=== PATIENT | female | born 1950 | race Caucasian/White ===

== ENCOUNTER → 2018-08-11 11:59 | Outpatient (CLI) | payer MEDICARE, SELFPAY ==
--- NOTE | 2018-08-11 12:41 | EKG12_ITS ---
Test Reason : PRE OP Blood Pressure : / mmHG Vent. Rate : 073 BPM Atrial Rate : 073 BPM P-R Int : 158 ms QRS Dur : 072 ms QT Int : 380 ms P-R-T Axes : 060 023 027 degrees QTc Int : 418 ms Normal sinus rhythm Nonspecific ST abnormality Abnormal ECG Confirmed by JAYLEN GUZMAN, MAN ([id number]), business editor ARJUN ARIAS ([id number]) on 08/12/2018 2:06:47 PM Referred By: Basim Moss Confirmed By:MAN YORK MD
[2018-08-11 12:44] LABS: Hematocrit 44.7 % (37-47); Hemoglobin 14.8 g/dl (12.0-15.0); Mean Corp Hgb Conc 33.1 g/gl (32-36); Mean Corpuscular Hgb 30.8 pg (27.0-32.0); Mean Corpuscular Volume 93.1 fL (81-99); Mean Platelet Vol. 9.9 fl (6.2-12.0); Platelet Count 254 K/mm3 (150-450); RBC Distribution Width CV 12.8 % (11.6-14.6); RBC Distribution Width SD 43.3 fl (35.1-43.9); Scan Indicated on CBC? Y/N NO; White Blood Count 5.8 K/mm3 (4.4-11.0)
[2018-08-11 13:08] LABS: Anion Gap 9 (5-15); BUN 14 mg/dL (7-18); BUN/Creat Ratio 17.7 RATIO (10-20); Calcium,Total 8.8 mg/dL (8.5-10.1); Chloride 106 mmol/L (98-107); Creatinine, Serum 0.79 mg/dL (0.55-1.02); EST Glomerular Filtration Rate 77 mL/min (>60); Est Glom Filt Rate - Afr Amer 93 mL/min (>60); Glucose 93 mg/dL (74-106); Sodium Level 140 mmol/L (136-145)
== END ==
PROVIDERS: Visit Provider Urology
DX: Z01.818 Encounter for other preprocedural examination (principal); I10 Essential (primary) hypertension; E03.9 Hypothyroidism, unspecified
CPT/HCPCS: 36415; 80048; 85027; 93005

== ENCOUNTER → 2018-08-27 09:01 | Outpatient (CLI) | payer MEDICARE, SELFPAY ==
--- NOTE | 2018-08-27 09:06 | RAD_ITS ---
STUDY: VOIDING CYSTOGRAM REASON FOR EXAM: Female, 67 years old. Flank pain . RADIATION DOSAGE (If Supplied By Facility): dap= 9.505 mGycm2 images=17 FLUOROSCOPY TIME (if supplied): (1:12) minutes/seconds TECHNIQUE: Bladder is filled with 150 mL of Cystografin. COMPARISON: None. FINDINGS: There is opacification of the urinary bladder which appears small in size. There is no evidence of contrast leak to suggest a fistula or tear. There is pseudodiverticulosis of the urinary bladder wall suggesting chronic UM by the orthopedic obstruction or neurogenic bladder. Voiding views demonstrate small postvoid residue. The urethra is unremarkable.There is no vesicoureteral reflux. RAD/Voiding Urethrocystography IMPRESSION: There is no evidence of contrast leak to suggest a fistula or tear. Electronically Signed: Quan Gordon MD at 13:55 EDT Tel , Service support ,
== END ==
PROVIDERS: Referring Provider Urology; Visit Provider Urology
DX: S37.10XA Unspecified injury of ureter, initial encounter (principal)
CPT/HCPCS: 51600; 74455

== ENCOUNTER → 2018-12-21 08:18 | Outpatient (CLI) | payer MEDICARE, SELFPAY ==
[2015-03-13 09:43] VITALS: BMI 28.3
[2018-12-21 12:10] LABS: Absolute Lymphocyte Count 1.45 X10^3/ul (0.83-4.51); Absolute Neutrophil Count 2.8 X10^3/uL (2.0-7.7); Basophil# 0.03 X10^3/uL; Basophil% 0.6 % (0-1); Eosinophil# 0.18 X10^3/uL; Eosinophils% 3.7 % (0-5); Hematocrit 45.7 % (37-47); Hemoglobin 14.4 g/dl (12.0-15.0); Lymphocyte # 1.45 X10^3/ul (4.0); Lymphocyte % 29.9 % (19-41); Mean Corp Hgb Conc 31.5 g/gl (32-36); Mean Corpuscular Hgb 29.3 pg (27.0-32.0); Mean Corpuscular Volume 92.9 fL (81-99); Mean Platelet Vol. 10.8 fl (6.2-12.0); Monocyte# 0.36 X10^3/uL; Monocyte% 7.4 % (0-10); Neutrophil # 2.82 X10^3/uL (2.7-7.7); Neutrophil % 58.2 % (47-70); Platelet Count 223 K/mm3 (150-450); RBC Distribution Width CV 13.1 % (11.6-14.6); RBC Distribution Width SD 44.4 fl (35.1-43.9); Red Blood Count 4.92 M/mm3 (4.2-5.4); White Blood Count 4.9 K/mm3 (4.4-11.0)
[2018-12-21 12:12] LABS: POSITIVE COUNT NO; POSITIVE DIFFERENTIAL NO; POSITIVE MORPHOLOGY NO
[2018-12-21 12:20] LABS: ALB/GLOB Ratio 0.9 RATIO (0.9-2.4); AST(SGOT) 19 U/L (15-37); Alanine Aminotransfer ALT/SGPT 24 U/L (13-56); Albumin, Serum 3.7 g/dL (3.2-5.0); Alkaline Phosphatase 81 U/L (45-117); Anion Gap 9 (5-15); BUN 11 mg/dL (7-18); BUN/Creat Ratio 15.5 RATIO (10-20); Calcium,Total 8.9 mg/dL (8.5-10.1); Chloride 107 mmol/L (98-107); Cholesterol 208 mg/dL (200); Creatinine, Serum 0.71 mg/dL (0.55-1.02); EST Glomerular Filtration Rate 87 mL/min (>60); Est Glom Filt Rate - Afr Amer 105 mL/min (>60); Glucose 103 mg/dL (74-106); High Density Lipoprotein 43 mg/dL; Potassium 4.1 mmol/L (3.5-5.1); Protein, Total 7.7 g/dL (6.4-8.2); Sodium Level 142 mmol/L (136-145); Triglycerides 128 mg/dL; Very Low Density Lipoprotein 26 mg/dL (5-40)
== END ==
PROVIDERS: Family Provider Family Medicine; PCP Family Medicine; Visit Provider Family Medicine
DX: I10 Essential (primary) hypertension (principal)
CPT/HCPCS: 36415; 80053; 80061; 85025

== ENCOUNTER → 2019-01-15 07:42 | Outpatient (CLI) | payer MEDICARE, SELFPAY ==
--- NOTE | 2019-01-15 07:47 | US_ITS ---
STUDY: ULTRASOUND BREAST - RIGHT REASON FOR EXAM: Female, 68 years old. Palpable lump in the right breast. TECHNIQUE: Axial and longitudinal images of the RIGHT breast were performed with a high resolution ultrasound transducer. COMPARISON: Comparison is made with prior mammogram done earlier in the day. FINDINGS: RIGHT Breast: The lower half of the right breast was examined by ultrasound. There is evidence of fibroglandular tissue. No solid or cystic mass lesion is seen. US/Breast Limited Unilateral IMPRESSION: No sonographic abnormality is seen. ASSESSMENT CATEGORY: BIRADS Category 1: Negative. A letter regarding these results will be sent to the patient by the facility within 30 days. Electronically Signed: Jeyson Acosta MD at 13:26 EST , Service support ,
--- NOTE | 2019-01-15 07:47 | BI_ITS ---
MAMMOGRAPHY - BILATERAL DIAGNOSTIC REASON FOR EXAM: Female, 68 years old. Tender right breast lump. PERTINENT HISTORY: Non-contributory. TECHNIQUE: Digital bilateral breast charlene (3D mammographic acquisition) in the CC and MLO projections. 2-D mediolateral oblique (MLO) and craniocaudad (CC) views of both breasts were obtained. CAD: Full Field Digital Mammography with Computer Added Detection was performed. COMPARISON: Comparison is made with prior study dated April 11, 2014. FINDINGS: Breast Composition: The breasts are almost entirely fatty. There are no dominant masses or suspicious calcifications. No other significant abnormalities are identified. There has been no significant change since the prior study. BI/DIAG MAMM W/CAD, BILAT IMPRESSION: Stable bilateral diagnostic mammogram. With the patient's history of a right breast lump, correlation with ultrasound is recommended. ASSESSMENT CATEGORY: BIRADS Category 0: Incomplete. Need additional imaging evaluation. A letter regarding these results will be sent to the patient by the facility within 30 days. Approximately 10% of breast cancers are not detected by mammography. A normal mammogram should not delay biopsy of a clinically suspicious abnormality. Electronically Signed: Jeyson Acosta MD at 10:38 EST , Service support ,
== END ==
PROVIDERS: Family Provider Family Medicine; PCP Family Medicine; Referring Provider Family Medicine; Visit Provider Family Medicine
DX: N63.41 Unspecified lump in right breast, subareolar (principal)
CPT/HCPCS: 76642; 77062; 77066; G0279

== ENCOUNTER → 2019-01-20 08:30 | Outpatient (CLI) | payer MEDICARE, SELFPAY ==
[2019-01-19 08:43] VITALS: BMI 30.3
--- NOTE | 2019-01-20 08:30 | US_ITS ---
STUDY: ULTRASOUND BREAST - RIGHT REASON FOR EXAM: Female, 68 years old. Palpable lump in the right breast. TECHNIQUE: Axial and longitudinal images of the RIGHT breast were performed with a high resolution ultrasound transducer. COMPARISON: Comparison is made with prior ultrasound of the right breast dated January 15, 2019 as well as prior mammogram dated January 15, 2019. FINDINGS: RIGHT Breast: The lateral half of the breast was examined by ultrasound. 2 benign-appearing lymph nodes are seen in the axillary region. The larger measures 1.1 cm x 1.6 cm x 0.5 cm. US/Breast Limited Unilateral IMPRESSION: 2 benign-appearing right axillary lymph nodes. ASSESSMENT CATEGORY: BIRADS Category 2: Benign. A letter regarding these results will be sent to the patient by the facility within 30 days. Electronically Signed: Jeyson Acosta, at 9:36 EST , Service support ,
== END ==
PROVIDERS: Family Provider Family Medicine; PCP Family Medicine; Referring Provider Surgery; Visit Provider Surgery
DX: N64.4 Mastodynia (principal)
CPT/HCPCS: 76642

== ENCOUNTER → 2019-04-02 13:09 | Outpatient (CLI) | payer MEDICARE, SELFPAY ==
[2019-01-25 09:23] VITALS: BMI 30.3
[2019-04-02 16:07] LABS: Free T3 3.9 pg/mL (2.18-3.98); T4 Free Direct 0.82 ng/dL (0.76-1.46); Thyroid Stim Hormone (TSH) 0.14 uIU/mL (0.358-3.74)
== END ==
PROVIDERS: Family Provider Family Medicine; PCP Family Medicine; Visit Provider Family Medicine
DX: E03.9 Hypothyroidism, unspecified (principal)
CPT/HCPCS: 36415; 84439; 84443; 84481

== ENCOUNTER → 2019-04-15 | Outpatient (CLI) | payer MEDICARE, SELFPAY ==
[2019-01-25 09:23] VITALS: BMI 30.3
--- NOTE | 2019-04-15 08:45 | BD_ITS ---
STUDY: DUAL ENERGY X-RAY ABSORPTIOMETRY / DXA REASON FOR EXAM: Female, 68 years old. Early menopause. Loss of height. TECHNIQUE: Bone Mineral Density (BMD) measurements of lumbar spine and bilateral hips were obtained. COMPARISON: None. FINDINGS: Lumbar Spine (L1-L4): g/cm2 (1.226) / T-score (0.2) / Z-score (1.9) Findings are suggestive of normal bone density with a low fracture risk. Left Femur Total: g/cm2 (0.973) / T-score (-0.3) / Z-score (1.2) Left Femoral Neck: g/cm2 (0.878) / T-score (-1.2) / Z-score (0.5) Right Femur Total: g/cm2 (0.976) / T-score (-0.3) / Z-score (1.2) Right Femoral Neck: g/cm2 (0.872) / T-score (-1.2) / Z-score (0.5) BD/Dexa Bone Density Study IMPRESSION: The patient is considered osteopenic as outlined below according to World [place] Organization (WHO) criteria with a low fracture risk. Reference Information: The T-score is the number of standard deviations above or below the standard which is normal for young adults at their peak bone mineral density. The World Health Organization (WHO) interprets the T-scores as follows: Above -1 Normal bone density Between -1 and -2.5 Osteopenia Equal to / or below -2.5 Osteoporosis As a practical clinical guideline, osteopenia may be graded as follows: Mild -1 through -1.5 Moderate -1.6 through -2.0 Severe -2.1 through -2.4 The Z-score is the number of standard deviations above or below age-matched controls. A Z-score of less than -1.5 would be considered abnormal. References: 1. NIH Osteoporosis and Related Bone Diseases http://www.osteo.org 2. International Society for Clinical Densitometry http://www.iscd.org 3. National Osteoporosis Foundation http://www.nof.org Electronically Signed: Jeyson Acosta, at 11:25 EDT , Service support ,
== END | disposition home or self-care (01) ==
LOC: OPBD 08:27
PROVIDERS: Family Provider Family Medicine; PCP Family Medicine; Referring Provider Family Medicine; Visit Provider Family Medicine
DX: M81.0 Age-related osteoporosis without current pathological fracture (principal)
CPT/HCPCS: 77080

== ENCOUNTER → 2019-09-17 | Outpatient (CLI) | payer MEDICARE, SELFPAY ==
[2019-01-25 09:23] VITALS: BMI 30.3
--- NOTE | 2019-09-17 12:43 | RAD_ITS ---
STUDY: X-RAY - LUMBAR SPINE REASON FOR EXAM: Female, 69 years old. Increased lower back pain. TECHNIQUE: 5 view(s) of the lumbar spine were obtained. COMPARISON: None FINDINGS: There is a slightly exaggerated lumbar lordosis. There is no substantial scoliosis. For the purposes of labeling there are 5 lumbar type nonrib-bearing vertebral body with a transitional vertebral body labeled S1. There is a normal alignment of the vertebrae. There is multilevel endplate spondylosis of the lumbar vertebrae. There is multilevel vacuum phenomena. There is multi-level degenerative disc disease with multi-level disc space narrowing. There is no demonstrated fracture. There is no demonstrated spondylolysis of the pars interarticulares. The soft tissue structures are unremarkable. RAD/L/S Spine Min 4 Views IMPRESSION: Multilevel spondylosis/degenerative disease with no acute fracture, spondylolisthesis or pars defect. Electronically Signed: Aimee Esquivel MD at 0:56 EDT , Service support ,
--- NOTE | 2019-09-17 12:43 | RAD_ITS ---
STUDY: X-RAY - CERVICAL SPINE REASON FOR EXAM: Female, 69 years old. Increasing neck pain. TECHNIQUE: 6 view(s) of the cervical spine were obtained. COMPARISON: None FINDINGS: There are degenerative changes of the anterior atlantoaxial articulation. Normal odontoid process. There is straightening of the normal cervical lordosis. There is multi-level endplate spondylosis. There is multi-level degenerative disc disease with multilevel disc space narrowing. There is multi-level osseous foraminal stenosis. The soft tissue structures are unremarkable. There is no demonstrated fracture of the cervical spine. RAD/Cerv Spine 4 or 5 Views IMPRESSION: Multilevel spondylosis/degenerative disease with no acute fracture or subluxation. Straightening of the physiological cervical lordosis most likely due to underlying degenerative disease or muscular spasm. Electronically Signed: Aimee Esquivel MD at 0:52 EDT , Service support ,
== END | disposition home or self-care (01) ==
LOC: HPRAD 12:40
PROVIDERS: Family Provider Family Medicine; PCP Family Medicine; Referring Provider Family Medicine; Visit Provider Family Medicine
DX: M54.9 Dorsalgia, unspecified (principal)
CPT/HCPCS: 72050; 72110

== ENCOUNTER → 2019-10-07 | Outpatient (CLI) | payer MEDICARE, SELFPAY ==
[2019-10-07 14:15] VITALS: BMI 30.3
[2019-10-07 17:34] LABS: Thyroid Stim Hormone (TSH) 0.05 uIU/mL (0.358-3.74)
== END | disposition home or self-care (01) ==
LOC: BFHLAB 15:03
PROVIDERS: Family Provider Family Medicine; PCP Family Medicine; Visit Provider Family Medicine
DX: E03.9 Hypothyroidism, unspecified (principal)
CPT/HCPCS: 36415; 84443

== ENCOUNTER 2019-10-15 08:25 | Day surgery (SDC) | payer MEDICARE, SELFPAY ==
[2019-10-07 14:15] VITALS: BMI 30.3
--- NOTE | 2019-10-14 21:36 | PCM.HP.BLA ---
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 She initially saw the Biofuels Research Scientist because of red areas on her face that was diagnosed as rosacea. That is when the lesion on her left mid posterior leg was seen and a shave biopsy was obtained. Today she denies fever. She has minimal discomfort in the biopsy site. She presents today for surgical options for treatment for her recently diagnosed melanoma in situ. PAST MEDICAL HISTORY Bladder leak Breast lump in female Cataracts, bilateral GERD (gastroesophageal reflux disease) History of pneumonia Hormone deficiency IBS (irritable bowel syndrome) Osteoporosis Skin cancer Vision problems COPD (chronic obstructive pulmonary disease) Chronic bronchitis Arthritis High cholesterol Hypoglycemia Hypothyroid Migraines PCOS (polycystic ovarian syndrome) HTN (hypertension) PAST SURGICAL HISTORY LOWER DENTAL IMPLANTS abdominoplasty bunionectomy hysterectomy nasal septoplasty hernia repair kyphoplasty right ovarian cystectomy ALLERGIES No Known Allergies MEDICATIONS esomeprazole magnesium thyroid (pork) acetaminophen ER FAMILY HISTORY Mother - Cancer lung, Arthritis Father - Hypertension, Arthritis Other - Breast cancer, High cholesterol, Ovarian cancer, Thyroid disorder SOCIAL HISTORY Smoking Status: Former smoker alcohol intake: current substance use type: does not use REVIEW OF SYSTEMS General - Denies fever, fatigue, and weight loss. Eyes - Has cataracts. Denies glaucoma. ENT - Denies nasal congestion and sore throat. Has chronic sinus problems. Endocrine - Denies excessive thirst and urination. Has heat and cold intolerance. Has thyroid disease. Skin - Has recently shave biopsy from left mid posterior leg on 09/23/19 that showed melanoma in situ lentigo maligna type. Musculoskeletal - Has joint pain, joint stiffness, and arthritis. Denies weakness of muscles and joints and back pain. Neuro - Denies headaches. Cardiovascular - Denies chest pain, fatigue, and shortness of breath with exertion. Psych - Denies anxiety and depression. Respiratory - Denies chronic cough. Has shortness of breath. Patient is a former smoker. Gastrointestinal - Denies nausea, vomiting, diarrhea, and constipation. Hematologic - Denies abnormal bruising and bleeding. Genitourinary - Denies hematuria. has urinary frequency. Has incontinence. PHYSICAL EXAMINATION General - Alert and Oriented HEENT - PERRL. EOMI. Throat is clear. No suspicious lesions noted. Neck - Supple and nontender. No cervical adenopathy. No suspicious lesions noted. Lungs - Clear to auscultation. Heart - Regular rate and rhythm. Abdomen - Soft and nondistended. Extremities - FROM. No axillary adenopathy. Radial pulses are palpable. No inguinal adenopathy. Dorsalis pedis pulses are palpable. On the left mid posterior leg is a healing scab from recent biopsy that showed melanoma in situ lentigo maligna type. No other suspicious lesions noted. Neuro - CN II-XII grossly intact. Psych - Normal mood and affect. ASSESSMENT 1. 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 2. Former smoker. PLAN This was a shave excision so we need to establish the diagnosis with a completion excision into the subcutaneous tissue to check if there is any deeper focus of melanoma that would change the definitive treatment with regard to the margin required at the time of the wide excision. Also if there is a focus of melanoma in the intermediate range (between 1 and 4 mm thick) would require a sentinel lymph node biopsy before proceeding with a definitive wide excision since the definitive treatment can distort the lymphatic drainage. At the time of the completion excision, tissue will be sent to Pathology for analysis to look for a deeper focus of melanoma. At the time of surgery will leave the wound open and proceed with postop wound care with Silver dressing changes. Once the final pathology is available, can then schedule the definitive wide excision with a 5 mm margin down to the muscular fascia. Reconstruction will be with skin grafting. Since melanoma in situ can travel extensively in the horizontal plane, if the subsequent pathology report has additional melanoma in situ at the margins, then additional excision would be necessary with skin grafting. Discussed with the patient the different levels of melanoma for treatment. If melanoma is less than 1 mm thick, it is a thin melanoma and needs a 1 cm margin of excision. If melanoma is between 1 and 4 mm thick, it is an intermediate melanoma and needs a 2 cm margin of excision. If melanoma is greater than 4 mm thick, it is a thick melanoma and needs a 2-3 cm margin of excision. The initial surgery will be done on an outpatient basis under local anesthesia with IV sedation. For the definitive wide excision with skin grafting, surgery can be done on an outpatient basis under general anesthesia or local anesthesia with IV sedation. Tissue will be sent to Pathology for analysis to look for any additional melanoma at the margins. Patient was informed of the risks and complications of the procedure including alternatives to surgery. These were discussed with the patient personally. Patient voices understanding and wishes to proceed. Some of the risks and complications were included in a form from the [place] [employer]. After treatment has been completed, she will need TBSE every 3-6 months. On a yearly basis, she will need LFT's including LDH and fractionation of Alkaline Phosphatase and a CXR.
[2019-10-15] VITALS (8 sets, daily range): BP systolic 129–151; BP diastolic 74–86; PULSE 65–70; RESP 15–16; TEMP 36.8–36.9; O2SAT 94–98; BMI 31.5
--- NOTE | 2019-10-15 | IMM_PTH ---
PATIENT: HORTENCIA SERRANO LOC: [facility] – [place] U#:[id number] AGE/SX: 69/F ROOM: RE10/15/[address]: Dr. Marcos Llamas MD : 1950 BED: DIS: 10/15/2019 SPEC #: [id number] RECD: 10/18/19 12:54 STATUS: STEPHAN REQ #: [id number] DIANN: 10/15/19 00:[address]: Marcos Llamas DEPT: IMMUNOHISTOCHEMISTRY RECD BY: Millie Lawson ENTERED: 10/18/19 12:55 SP TYPE: IMMUNO OTHR DR: Dr. Little Sullivan MD Tissues: Skin of leg, NOS Procedures: MACRO (add) P53 (add) Vimentin (add) Pankeratin (initial) MELAN-A (add) S-100 (add) PHYSICIAN & INSTITUTION [place] [id number] SPECIMEN INFORMATION: Tissue Source: Melanoma in situ, posterior leg, excision Clinical Info: Melanoma in situ, lentigo maligna type, left mid posterior leg Specimen Number: [id number] CPT code: 29247, 82742 x5 METHODOLOGY: Deparaffinized sections of prefer/formalin-fixed tissue or PAP/DQ stained slides are incubated with monoclonal/polyclonal antibodies/oligonucleotide probes. Localization is made via biotin free immunoperoxidase method. Appropriate controls are performed and reacted as expected. Results on target cell population are indicated in the following table: RESULTS: ANTIBODY / CLONE RESULT AE1-3 (AE1/AE3/PCK26) negative Vimentin (V9) positive Macro (HAM-56) positive Melan A (A103) negative S-100 (4C4.9) negative P53 (DO-7) negative These tests were developed and their performance characteristics determined by [facility]. They may not have been cleared or approved by the U.S. Food and Drug Administration. The FDA has determined that such clearance or approval is not necessary. The above immunohistochemical/dualISH markers are ordered and reviewed by the Pathologist. INTERPRETATION: Melanoma in situ, posterior leg, excision: No evidence of residual melanoma. AM:phoenix 10/19/19
[2019-10-15] MEDS: Lactated Ringers 1,000 ML 100 ML IV (09:03)
--- NOTE | 2019-10-15 09:55 | LES_PTH ---
PATIENT: HORTENCIA SERRANO LOC: [facility] [place] U#:[id number] AGE/SX: 69/F ROOM: RE10/15/[address]: Dr. Marcos Llamas MD : 1950 BED: DIS: 10/15/2019 SPEC #: [id number] RECD: 10/15/19 11:52 STATUS: STEPHAN REMali #: [id number] DIANN: 10/15/19 09:[address]: Marcos Llamas DEPT: SURGICAL PATHOLOGY RECD BY: Tony Feliciano ENTERED: 10/15/19 13:23 SP TYPE: Lesion OTHR DR: Dr. Little Sullivan MD Tissues: Skin of leg, NOS Procedures: Surgery Specimen Level IV HEADER OPERATION: Completion, excision, melanoma in situ, posterior leg PRE-OP DIAGNOSIS: 6 mm melanoma in situ, lentigo maligna type left mid posterior leg TISSUE SUBMITTED: 6 mm melanoma in situ, lentigo maligna type left mid posterior leg, suture at 12 o'clock MICROSCOPIC DIAGNOSIS Skin lesion, left mid posterior leg, biopsy: Cicatrix. Mild melanocytic hyperplasia. No evidence of residual melanoma. AM:phoenix 10/18/19 COMMENT Immunohistochemistry ([id number]) supports the above diagnosis. MICROSCOPIC DESCRIPTION Slides are reviewed. GROSS DESCRIPTION Received in fixative is one container labeled with the patient's name and designated melanoma in situ left leg, suture at 12 o'clock. The specimen consists of a round piece of rob-white skin measuring 1.5 x 1 cm and up to 0.5 cm in thickness. The skin surface shows a focal area of ulceration consistent with previous biopsy site measuring 0.2 cm in diameter. The specimen is inked as follows: 12 to 3 o'clock - black, 3 to 6 o'clock - blue, 6 to 9 o'clock - green, 9 to 12 o'clock - yellow. The specimen is serially sectioned and submitted entirely in one cassette. / SJ:phoenix 10/15/19 TC:3 CPT: 58458
[2019-10-15] MEDS: Cefazolin 2 GM in 0.9% Normal Saline 100 ML IV (10:23)
--- NOTE | 2019-10-15 10:55 | PCM.OPRPT ---
Report of Operation Date of Procedure: 10/15/19 Pre-Operative Diagnosis: 1. 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 2. Former smoker. Post-Operative Diagnosis: Same. 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 She initially saw the Housing Manager because of red areas on her face that was diagnosed as rosacea. That is when the lesion on her left mid posterior leg was seen and a shave biopsy was obtained. Today she denies fever. She has minimal discomfort in the biopsy site. She presents today for surgical options for treatment for her recently diagnosed melanoma in situ. Patient was informed of the risks and complications of the procedure including alternatives to surgery. These were discussed with the patient personally. Patient voices understanding and wishes to proceed. Some of the risks and complications were included in a form from the [place] [employer]. Size of melanoma in situ defect left mid posterior leg - 1.2 x 1.2 x 0.6 cm. visual training aide: None Type of Anesthesia:: Local MAC - xylocaine with epinephrine and IV sedation. Specimen's removed: Melanoma in situ, lentigo maligna type, left mid posterior leg to Pathology. Drains: None. Estimated Blood Loss (mL): 5 ml. Description of Procedure: Patient was taken to OR in supine position and was given IV sedation. She was placed in the prone position. The left posterior leg was prepped and draped in the usual fashion. SCD's were placed for DVT prophylaxis. Perioperative antibiotics were given intravenously. The lesion left mid posterior leg was infiltrated with xylocaine and epinephrine. After waiting 5 minutes for the anesthetic to take effect, I proceeded with a completion excision of this melanoma in situ with a couple mm margin in all directions into the subcutaneous tissue. A suture was marked at the 12 oclock position for pathology orientation. The lesion was sent to Pathology for analysis to rule out any deeper focus of melanoma. It was a 12 mm excision. The size of the defect after the excision was 1.2 x 1.2 x 0.6 cm. Hemostasis was obtained with electrocautery. I dressed the wound with Aquacel Silver which was secured with a 4-0 Nylon tie over stent suture dressing. Dry gauze was applied over the Silver dressing followed by a compression hali wrap. Patient tolerated the procedure well and was sent to PACU in satisfactory condition. Patient will be sent home on antibiotics and pain medication. She will keep her left leg elevated when sitting. Patient will followup in a week for a wound check and to instruct the patient on the Silver dressing changes. When the pathology report is available, will then schedule the next stage which is wide excision of the melanoma with a 5 mm margin down to the muscular fascia with skin grafting. Grafts/Implants Used: None. - Complications None. - Admit VTE Documentation VTE Present on Admission: No VTE Mechan Device Prophylaxis: SCD's VTE Pharm Prophylaxis ordered?: No Code Visit Surgery Charges CPT - 31476 ICD-10 - D03.72, Z87.891
--- NOTE | 2019-10-15 11:04 | DCINST_ITS ---
You will use the following diet at home:: No restrictions, Other - encourage nutritional supplementation with protein to help the healing process. Discharge Activity: May Shower - wear plastic bag over left leg when showering., - - may ambulate. minimize standing. elevate left leg when sitting. May shower in (days): 1 - wear plastic bag over left leg when showering. May resume sexual activity in: No Restrictions Weight Bearing Status: Weight bearing as tolerated Keep extremity elevated above heart level: Left Leg Call your doctor if your incision/area has: Continuous Slow Oozing, Sudden Increased Bleeding, Increased Pain/ Swelling, Increased Redness, Foul Smelling Discharge, Swelling at the incision site Call your doctor if you observe: Fever of 101 or Higher, Coldness, Increased Pain, Shortness of breath, Chest pain, Calf discomfort, Uncontrolled pain Suture Line Care: - - Aquacel Silver dressing changes daily. Will remove operative dressing and do first silver dressing change in office. Change Dressing in (Days):: 3 - will change dressing in office. Cleanse incision/area with: - - wear plastic bag over left leg when showering. Allergies/Adverse Reactions: Allergies No Known Allergies Allergy (Verified 10/15/19 08:45) Medications to take at Discharge esomeprazole magnesium 40 mg capsule,delayed release 40 mg PO DAILY cap 01/19/19 thyroid (pork) 120 mg tablet 120 mg PO DAILY 01/19/19 acetaminophen ER 650 mg tablet,extended release 650 mg PO PRN PRN tab 09/30/19 Estradiol [Estrace] 0.5 mg PO DAILY 10/14/19 Fluorometholone [Fml] 1 drp EACH EYE BID 10/14/19 Ketoconazole [Nizoral] 120 ml TP MOWEFR 10/14/19 Metronidazole 45 gm TP DAILY 10/14/19 Minocycline [Minocin] 100 mg PO DAILY 10/14/19 Multivit with Calcium,Iron,Min [Multiple Vitamins For Women] 1 ea PO DAILY 10/14/19 Cefadroxil [Duricef] 500 mg PO BID #10 cap 10/15/19 Lactobacillus Acidophilus/Fos [Acidophilus Probiotic Tablet] 1 ea PO BID #10 tab 10/15/19 Oxycodone HCl/Acetaminophen [Percocet 5/325] 1 tablet PO 4X/DAY PRN PRN 5 Days #20 tablet 10/15/19 The following prescriptions were given: Lactobacillus Acidophilus/Fos [Acidophilus Probiotic Tablet] 1 ea PO BID #10 tab Transmission Status: Pending to [facility] Cefadroxil [Duricef] 500 mg PO BID #10 cap Transmission Status: Pending to [facility] Oxycodone HCl/Acetaminophen [Percocet 5/325] 1 tablet PO 4X/DAY PRN PRN 5 Days #20 tablet PRN Reason: Pain Score 6-10/10 Transmission Status: Sent to [facility] Primary Care Physician: Little Sullivan MD [Primary Care Provider] - Test Results: Test results from this visit will be discussed in further detail at your follow- up appointment, if applicable. Please Follow Up With: Marcos Llamas MD When: friday10/18/19. call [phone] for appt. Proposed Discharge Date: 10/15/19
== END 2019-10-15 12:09 | disposition home or self-care (01) ==
LOC: SDC 08:26 → AC 08:28
PROVIDERS: Family Provider Family Medicine; PCP Family Medicine; Referring Provider Surgery; Visit Provider Surgery
PROC: (CPT 11402; principal; 2019-10-15 09:45)
DX: L90.5 Scar conditions and fibrosis of skin (principal); J44.9 Chronic obstructive pulmonary disease, unspecified; I10 Essential (primary) hypertension; E03.9 Hypothyroidism, unspecified; E78.00 Pure hypercholesterolemia, unspecified; K58.9 Irritable bowel syndrome, unspecified; E28.2 Polycystic ovarian syndrome; M19.90 Unspecified osteoarthritis, unspecified site; K21.9 Gastro-esophageal reflux disease without esophagitis; M81.0 Age-related osteoporosis without current pathological fracture; Z78.0 Asymptomatic menopausal state; Z85.828 Personal history of other malignant neoplasm of skin; Z87.01 Personal history of pneumonia (recurrent); Z87.891 Personal history of nicotine dependence; Z90.710 Acquired absence of both cervix and uterus
CPT/HCPCS: 11402; 88305; 88341; 88342; J7120

== ENCOUNTER 2019-10-27 12:27 | Day surgery (SDC) | payer MEDICARE, SELFPAY ==
[2019-10-20 11:31] VITALS: BMI 31.5
[2019-10-25 15:18] VITALS: BMI 31.5
[2019-10-27] VITALS (8 sets, daily range): BP systolic 148–165; BP diastolic 76–135; PULSE 55–84; RESP 15–18; TEMP 36.3–37; O2SAT 95–100; BMI 31.2
--- NOTE | 2019-10-27 11:34 | HP.PCM_ITS ---
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 She initi ally saw the Sales And Service Engineer because of red areas on her face that was diagnosed as rosacea. That is when the lesion on her left mid posterior leg was seen and a shave biopsy was obtained. Today she denies fever. She has minimal discomfort in the biopsy site. She presents today for surgical options for treatment for her recently diagnosed melanoma in situ. PAST MEDICAL HISTORY Bladder leak Breast lump in female Cataracts, bilateral GERD (gastroesophageal reflux disease) History of pneumonia Hormone deficiency IBS (irritable bowel syndrome) Osteoporosis Skin cancer Vision problems COPD (chronic obstructive pulmonary disease) Chronic bronchitis Arthritis High cholesterol Hypoglycemia Hypothyroid Migraines PCOS (polycystic ovarian syndrome) HTN (hypertension) PAST SURGICAL HISTORY LOWER DENTAL IMPLANTS abdominoplasty bunionectomy hysterectomy nasal septoplasty hernia repair kyphoplasty right ovarian cystectomy ALLERGIES No Known Allergies MEDICATIONS esomeprazole magnesium thyroid (pork) acetaminophen ER FAMILY HISTORY Mother - Cancer lung, Arthritis Father - Hypertension, Arthritis Other - Breast cancer, High cholesterol, Ovarian cancer, Thyroid disorder SOCIAL HISTORY Smoking Status: Former smoker alcohol intake: current substance use type: does not use REVIEW OF SYSTEMS General - Denies fever, fatigue, and weight loss. Eyes - Has cataracts. Denies glaucoma. ENT - Denies nasal congestion and sore throat. Has chronic sinus problems. Endocrine - Denies excessive thirst and urination. Has heat and cold intolerance. Has thyroid disease. Skin - Has recently shave biopsy from left mid posterior leg on 09/23/19 that showed melanoma in situ lentigo maligna type. Musculoskeletal - Has joint pain, joint stiffness, and arthritis. Denies weakness of muscles and joints and back pain. Neuro - Denies headaches. Cardiovascular - Denies chest pain, fatigue, and shortness of breath with exertion. Psych - Denies anxiety and depression. Respiratory - Denies chronic cough. Has shortness of breath. Patient is a former smoker. Gastrointestinal - Denies nausea, vomiting, diarrhea, and constipation. Hematologic - Denies abnormal bruising and bleeding. Genitourinary - Denies hematuria. has urinary frequency. Has incontinence. PHYSICAL EXAMINATION General - Alert and Oriented HEENT - PERRL. EOMI. Throat is clear. No suspicious lesions noted. Neck - Supple and nontender. No cervical adenopathy. No suspicious lesions noted. Lungs - Clear to auscultation. Heart - Regular rate and rhythm. Abdomen - Soft and nondistended. Extremities - FROM. No axillary adenopathy. Radial pulses are palpable. No inguinal adenopathy. Dorsalis pedis pulses are palpable. On the left mid posterior leg is a healing scab from recent biopsy that showed melanoma in situ lentigo maligna type. No other suspicious lesions noted. Neuro - CN II-XII grossly intact. Psych - Normal mood and affect. ASSESSMENT 1. 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 2. Former smoker. PLAN This was a shave excision so we need to establish the diagnosis with a completion excision into the subcutaneous tissue to check if there is any deeper focus of melanoma that would change the definitive treatment with regard to the margin required at the time of the wide excision. Also if there is a focus of melanoma in the intermediate range (between 1 and 4 mm thick) would require a sentinel lymph node biopsy before proceeding with a definitive wide excision since the definitive treatment can distort the lymphatic drainage. At the time of the completion excision, tissue will be sent to Pathology for analysis to look for a deeper focus of melanoma. At the time of surgery will leave the wound open and proceed with postop wound care with Silver dressing changes. Once the final pathology is available, can then schedule the definitive wide excision with a 5 mm margin down to the muscular fascia. Reconstruction will be with skin grafting. Since melanoma in situ can travel extensively in the horizontal plane, if the subsequent pathology report has additional melanoma in situ at the margins, then additional excision would be necessary with skin grafting. Discussed with the patient the different levels of melanoma for treatment. If melanoma is less than 1 mm thick, it is a thin melanoma and needs a 1 cm margin of excision. If melanoma is between 1 and 4 mm thick, it is an intermediate melanoma and needs a 2 cm margin of excision. If melanoma is greater than 4 mm thick, it is a thick melanoma and needs a 2-3 cm margin of excision. The initial surgery will be done on an outpatient basis under local anesthesia with IV sedation. For the definitive wide excision with skin grafting, surgery can be done on an outpatient basis under general anesthesia or local anesthesia with IV sedation. Tissue will be sent to Pathology for analysis to look for any additional melanoma at the margins. Patient was informed of the risks and complications of the procedure including alternatives to surgery. These were discussed with the patient personally. Patient voices understanding and wishes to proceed. Some of the risks and complications were included in a form from the [employer]. After treatment has been completed, she will need TBSE every 3-6 months. On a yearly basis, she will need LFT's including LDH and fractionation of Alkaline Phosphatase and a CXR.
[2019-10-27] MEDS: Lactated Ringers 1,000 ML 100 ML IV (13:07)
[2019-10-27] MEDS: Cefazolin 2 GM in 0.9% Normal Saline 100 ML IV (14:15)
--- NOTE | 2019-10-27 14:15 | LES_PTH ---
PATIENT: HORTENCIA SERRANO LOC: [facility] [place] U#:[id number] AGE/SX: 69/F ROOM: RE10/27/[address]: Dr. Marcos Llamas MD : [id number] BED: DIS: 10/27/2019 SPEC #: [id number] RECD: 10/27/19 16:13 STATUS: STEPHAN REMali #: [id number] DIANN: 10/27/19 14:[address]: Marcos Llamas DEPT: SURGICAL PATHOLOGY RECD BY: Triston Mcwilliams ENTERED: 10/28/19 10:36 SP TYPE: Lesion OTHR DR: Dr. 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 Negative for residual melanoma. See comment. MARNIE:phoenix 10/29/19 COMMENT Please make reference to previous specimen ([id number]) skin lesion, left mid posterior leg, biopsy with diagnosis of cicatrix, mild melanocytic hyperplasia and no evidence of residual melanoma. MICROSCOPIC DESCRIPTION Slides are reviewed. GROSS DESCRIPTION Received in fixative is one container labeled with the patient's name and designated left mid posterior leg. The specimen consists of a discoid fragment of excised skin measuring 2.6 in diameter and excised to a depth of 1 cm. The central portion contains a circular defect measuring 1.5 cm in diameter and 0.5 cm in depth. A suture is present along one edge and has been designated the 12 o'clock position. The specimen has been differentially inked as follows: 12 o'clock - red, 3 o'clock - blue, 6 o'clock - green and 9 o'clock - orange. The entire deep surface is inked in black ink. The specimen is radially sectioned and totally submitted in four cassettes. / AM:phoenix 10/28/19 TC:5 CPT: 90502
[2019-10-27] MEDS: Mupirocin Ointment 22gm Tube 1 APPLIC (15:25)
--- NOTE | 2019-10-27 15:37 | PCM.OPRPT ---
Report of Operation Date of Procedure: 10/27/19 Pre-Operative Diagnosis: 1. 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 2. 1.2 cm melanoma in situ wound left mid posterior leg. 3. Former smoker. Post-Operative Diagnosis: Same. Surgery/Procedure Performed:: Wide excision 1.2 cm melanoma in situ wound left mid posterior leg with STSG reconstruction from right posterior flank (9 cm2) and placement of NEHEMIAS NPWT. 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 We have been doing wound care with Silver dressing changes three times per week. Healing of the wound has been uneventful. Final Pathology showed mild melanocytic hyperplasia and no evidence of residual melanoma. She presents today for definitive wide excision of her melanoma in situ lentigo maligna type wound left mid posterior leg with a 5 mm margin in all directions down to the muscular fascia with skin graft or skin flap reconstruction. Surgery will be done under general anesthesia on an outpatient basis. Patient was informed of the risks and complications of the procedure including alternatives to surgery. These were discussed with the patient personally. Patient voices understanding and wishes to proceed. Some of the risks and complications were included in a form from the [employer]. Size of skin graft left mid posterior leg - 3 x 3 cm. pesticide use medical coordinator: Dani Cortez. Type of Anesthesia:: General Specimen's removed: Melanoma in situ wound left mid posterior leg to Pathology. Drains: None. Estimated Blood Loss (mL): 25 ml. Description of Procedure: Patient was taken to OR in supine position and was placed under general anesthesia. She was then placed in the prone position. The left mid posterior leg and right posterior flank areas were prepped and draped in the usual fashion. SCD's were placed for DVT prophylaxis. Perioperative antibiotics were given intravenously. Using xylocaine with epinephrine, the melanoma in situ wound left mid posterior leg was infiltrated. After waiting 5 minutes for the anesthetic to take effect, I proceeded with a wide excision of the melanoma in situ, lentigo maligna type, with a 5 mm margin in all directions down to the muscular fascia. A suture was marked at the 12 oclock position for pathology orientation. The lesion was sent to pathology for analysis to rule out melanoma at the margins. Hemostasis was obtained with electrocautery. The size of the wound to be skin grafted was 3 x 3 cm or 9 cm2. I then infiltrated the right posterior flank area with xylocaine with epinephrine. An elliptical incision was made into the subcutaneous tissue. The subcutaneous tissue was removed from the undersurface of the dermis along with some deeper dermis thus fashioning a thick split thickness skin graft. The skin graft was placed on stretch and meshed with a 15 blade. The skin graft was placed in saline. I excised some additional subcutaneous tissue in the donor area right posterior flank to aid in wound closure. Hemostasis was obtained with electrocautery. The donor wound was closed in multiple layers with 2-0 Vicryl figure of eight interrupted sutures for the Mireya's fascia layer. The deep dermis and subcutaneous tissue was approximated with 3-0 Monocryl interrupted sutures. The skin was approximated with 3-0 V lock unidirectional barbed running subcuticular suture. This was followed by Histoacryl skin tissue adhesive. Dry Kerlix gauze was applied. The thick split thickness skin graft was applied to the melanoma wound left mid posterior leg and secured to the skin edges with 3-0 Chromic interrupted sutures. 3-0 Chromic sutures were placed for central quilting stabilization. Antibiotic ointment was applied to the skin graft followed by Mepitel nonadherent dressing. I then applied the NEHEMIAS NPWT device. Good suction was noted. The motorized device was functioning. A compression CHANTAL wrap was then applied. Patient tolerated the procedure well and was sent to PACU in satisfactory condition. Patient will be sent home on antibiotics and pain medication. Patient will followup in a week for removal of the skin graft dressing and evaluation of the skin graft and for a donor incision check and for discussion of the pathology report. She will keep her left leg elevated when sitting. Grafts/Implants Used: None. - Complications None. - Admit VTE Documentation VTE Present on Admission: No VTE Mechan Device Prophylaxis: SCD's VTE Pharm Prophylaxis ordered?: No Code Visit Surgery Charges CPT - 38981-30 ICD-10 - D03.72, S81.802A, Z87.891 44842 D03.72, S81.802A, Z87.891
--- NOTE | 2019-10-27 15:52 | DCINST_ITS ---
You will use the following diet at home:: No restrictions Discharge Activity: May Shower - in two days. Place plastic bag over left leg when showering., - - elevate left leg when sitting. minimize standing. May shower in (days): 2 - wear plastic bag over left leg when showering. May resume sexual activity in: 10-14 days Weight Bearing Status: Weight bearing as tolerated Keep extremity elevated above heart level: Left Leg Call your doctor if your incision/area has: Continuous Slow Oozing, Sudden Increased Bleeding, Increased Pain/ Swelling, Increased Redness, Foul Smelling Discharge, Swelling at the incision site, - - if the NEHEMIAS device stops blinking green. Call your doctor if you observe: Fever of 101 or Higher, Coldness, Increased Pain, Shortness of breath, Chest pain, Calf discomfort, Uncontrolled pain Suture Line Care: - - dry dressing to right posterior flank every other day after operative dressing removed in two days. Remove Dressing in (days):: 7 - will remove the NEHEMIAS unit left leg in the office. Cleanse incision/area with: - - wear plastic bag over left leg when showering. Allergies/Adverse Reactions: Allergies No Known Allergies Allergy (Verified 10/27/19 12:46) Medications to take at Discharge esomeprazole magnesium 40 mg capsule,delayed release 40 mg PO DAILY cap 01/19/19 thyroid (pork) 120 mg tablet 90 mg PO DAILY 01/19/19 acetaminophen ER 650 mg tablet,extended release 650 mg PO PRN PRN tab 09/30/19 Estradiol [Estrace] 0.5 mg PO DAILY 10/14/19 Fluorometholone [Fml] 1 drp EACH EYE BID 10/14/19 Ketoconazole [Nizoral] 120 ml TP MOWEFR 10/14/19 Metronidazole 45 gm TP DAILY 10/14/19 Multivit with Calcium,Iron,Min [Multiple Vitamins For Women] 1 ea PO DAILY 10/14/19 Cefadroxil [Duricef] 500 mg PO BID #14 cap 10/27/19 Lactobacillus Acidophilus/Fos [Acidophilus Probiotic Tablet] 1 ea PO BID #20 tab 10/27/19 Oxycodone HCl/Acetaminophen [Percocet 5/325] 1 tab PO Q4H PRN PRN 5 Days #30 tab 10/27/19 The following prescriptions were given: Lactobacillus Acidophilus/Fos [Acidophilus Probiotic Tablet] 1 ea PO BID #20 tab Transmission Status: Pending to [id number] Cefadroxil [Duricef] 500 mg PO BID #14 cap Transmission Status: Pending to [facility] Oxycodone HCl/Acetaminophen [Percocet 5/325] 1 tab PO Q4H PRN PRN 5 Days #30 tab PRN Reason: Pain Score 4-5/10 Transmission Status: Sent to [id number] Primary Care Physician: Little Sullivan MD [Primary Care Provider] - Test Results: Test results from this visit will be discussed in further detail at your follow- up appointment, if applicable. Please Follow Up With: Marcos Llamas MD When: one week. call [phone] for appt. Proposed Discharge Date: 10/27/19
[2019-10-27] MEDS: Acetaminophen 325 MG Tablet PO (18:04)
[2019-10-27] MEDS: oxyCODONE 5 MG Tablet PO (18:04)
== END 2019-10-27 18:46 | disposition home or self-care (01) ==
LOC: SDC 12:28 → AC 12:45
PROVIDERS: Family Provider Family Medicine; PCP Family Medicine; Referring Provider Surgery; Visit Provider Surgery
PROC: (CPT 11603; principal; 2019-10-27 14:00)
DX: D03.72 Melanoma in situ of left lower limb, including hip (principal); S81.802A Unspecified open wound, left lower leg, initial encounter; Z87.891 Personal history of nicotine dependence; L71.9 Rosacea, unspecified; H26.9 Unspecified cataract; K21.9 Gastro-esophageal reflux disease without esophagitis; K58.9 Irritable bowel syndrome, unspecified; M81.0 Age-related osteoporosis without current pathological fracture; J44.9 Chronic obstructive pulmonary disease, unspecified; M19.90 Unspecified osteoarthritis, unspecified site; G43.909 Migraine, unspecified, not intractable, without status migrainosus; E28.2 Polycystic ovarian syndrome; I10 Essential (primary) hypertension; E03.9 Hypothyroidism, unspecified; Z78.0 Asymptomatic menopausal state; Z87.01 Personal history of pneumonia (recurrent); Z85.828 Personal history of other malignant neoplasm of skin; Z79.899 Other long term (current) drug therapy
CPT/HCPCS: 11603; 15100; 88305; J7120; J2405

== ENCOUNTER → 2020-01-10 | Outpatient (CLI) | payer MEDICARE, SELFPAY ==
[2019-10-07 14:15] VITALS: BMI 30.3
[2019-12-23 15:24] VITALS: BMI 31.2
== END | disposition home or self-care (01) ==
LOC: LAB.FUTURE 10:17 → BFHLAB 10:17
PROVIDERS: Family Provider Family Medicine; PCP Family Medicine; Visit Provider Family Medicine
DX: E03.9 Hypothyroidism, unspecified (principal)
CPT/HCPCS: 36415; 84443

== ENCOUNTER → 2020-01-28 09:58 | Outpatient (CLI) | payer MEDICARE, SELFPAY ==
[2019-12-23 15:24] VITALS: BMI 31.2
[2020-01-28 12:29] LABS: ALB/GLOB Ratio 1.1 RATIO (0.9-2.4); AST(SGOT) 20 U/L (15-37); Alanine Aminotransfer ALT/SGPT 25 U/L (13-56); Alkaline Phosphatase 87 U/L (45-117); Anion Gap 5 (5-15); BUN 11 mg/dL (7-18); BUN/Creat Ratio 14.2 RATIO (10-20); Bilirubin, Direct 0.12 mg/dL (0.00-0.30); Calcium,Total 8.7 mg/dL (8.5-10.1); Chloride 105 mmol/L (98-107); Cholesterol 251 mg/dL (200); Creatinine, Serum 0.77 mg/dL (0.55-1.02); EST Glomerular Filtration Rate 78 mL/min (>60); Est Glom Filt Rate - Afr Amer 95 mL/min (>60); Globulin 3.8 g/dL (2.2-4.2); Glucose 95 mg/dL (74-106); High Density Lipoprotein 51 mg/dL; LDH 205 U/L (84-246); Potassium 3.8 mmol/L (3.5-5.1); Protein, Total 7.8 g/dL (6.4-8.2); Sodium Level 138 mmol/L (136-145); Triglycerides 158 mg/dL; Very Low Density Lipoprotein 32 mg/dL (5-40)
[2020-01-28 12:30] LABS: Vitamin D,25 Hydroxy 17.3 ng/mL
[2020-01-28 12:39] LABS: Absolute Lymphocyte Count 1.39 X10^3/uL (0.83-4.51); Absolute Neutrophil Count 2.5 X10^3/uL (2.0-7.7); Basophil# 0.08 X10^3/uL; Basophil% 1.8 % (0-1); Eosinophil# 0.15 X10^3/uL; Eosinophils% 3.4 % (0-5); Hematocrit 43.6 % (37-47); Hemoglobin 13.8 g/dL (12.0-15.0); Lymphocyte # 1.39 X10^3/ul (4.0); Lymphocyte % 31.7 % (19-41); Mean Corp Hgb Conc 31.7 g/dL (32-36); Mean Corpuscular Hgb 29.3 pg (27.0-32.0); Mean Corpuscular Volume 92.6 fL (81-99); Monocyte# 0.29 X10^3/uL; Monocyte% 6.6 % (0-10); NRBC Flagged by Analyzer 0 % (0-5); Neutrophil # 2.46 X10^3/uL (2.7-7.7); Neutrophil % 56.3 % (47-70); Platelet Count 226 K/mm3 (150-450); RBC Distribution Width CV 13.2 % (11.6-14.6); RBC Distribution Width SD 45.1 fl (35.1-43.9); Red Blood Count 4.71 M/mm3 (4.2-5.4); White Blood Count 4.4 K/mm3 (4.4-11.0)
[2020-01-31 14:07] LABS: Alkaline Phosphatase, Serum 83 IU/L (39-117); Bone Fraction 47 % (14-68); Liver Fraction 53 % (18-85)
[2020-01-31 19:12] LABS: Intestinal Fraction 0 % (0-18)
== END ==
PROVIDERS: Nurse Practitioner Family; PCP Family Medicine; Visit Provider Family Medicine
DX: Z00.00 Encounter for general adult medical examination without abnormal findings (principal); E03.9 Hypothyroidism, unspecified; M85.80 Other specified disorders of bone density and structure, unspecified site; D03.72 Melanoma in situ of left lower limb, including hip
CPT/HCPCS: 80053; 80061; 82248; 82306; 83615; 84075; 84080; 85025

== ENCOUNTER → 2020-01-28 | Outpatient (CLI) | payer MEDICARE, SELFPAY ==
[2019-12-23 15:24] VITALS: BMI 31.2
--- NOTE | 2020-01-28 11:10 | RAD_ITS ---
HISTORY: TWISTED ANKLE NOW HAVING PAIN IN KNEE MEDIAL./ANTERIOR EXAM:Right Knee COMPARISON: None FINDINGS: # of images incl. paperwork: 4 A benign enchondroma is present within the distal femur. The joint spaces are narrowed in the patellofemoral portion of the knee and within the medial weightbearing compartment. Osteophytes are present on the dorsal aspect of the patella as well as on the medial aspect of the tibial plateau and the medial femoral condyle. No fracture or subluxation. The patellofemoral joint is narrowed and mildly sclerotic. A tiny joint effusion is suspected. RAD/Knee 4 or More Views IMPRESSION: Osteoarthritis of the right knee greatest within the medial weightbearing compartment of the knee. Benign enchondroma in the distal femur. at 0606 Reported and signed by: Brian Sanabria MD Electronically Signed: Brian Sanabria MD at 6:05 EST Tel , Service support ,
== END | disposition home or self-care (01) ==
LOC: HPRAD 11:06
PROVIDERS: PCP Family Medicine; Referring Provider Family Medicine; Visit Provider Family Medicine
DX: Z00.00 Encounter for general adult medical examination without abnormal findings (principal); E03.9 Hypothyroidism, unspecified; M85.80 Other specified disorders of bone density and structure, unspecified site; D03.72 Melanoma in situ of left lower limb, including hip; M25.561 Pain in right knee
CPT/HCPCS: 73564; 80053; 80061; 82248; 82306; 83615; 84075; 84080; 85025

== ENCOUNTER → 2020-02-02 | Outpatient (CLI) | payer MEDICARE, SELFPAY ==
[2019-12-23 15:24] VITALS: BMI 31.2
--- NOTE | 2020-02-02 14:00 | RAD_ITS ---
STUDY: X-RAY - LUMBAR SPINE REASON FOR EXAM: Female, 69 years old. Back pain TECHNIQUE: 2 view(s) of the lumbar spine were obtained. COMPARISON: None FINDINGS: Normal lumbar lordosis. There is a minimal scoliosis. There is a normal alignment of the vertebrae. Mild degenerative changes of the vertebral bodies with mild spurring at the endplates. Slightly narrowed disc space heights. The soft tissue structures are unremarkable. RAD/Lumbar Spine 2 or 3 Views IMPRESSION: Degenerative changes and minimal scoliosis of the lumbar spine. Electronically Signed: Bhavesh Freedman DO at 23:59 EDT Tel [phone], Service support ,
--- NOTE | 2020-02-02 14:14 | RAD_ITS ---
STUDY: X-RAY - CERVICAL SPINE REASON FOR EXAM: Female, 69 years old. Neck pain TECHNIQUE: 3 view(s) of the cervical spine were obtained. COMPARISON: None FINDINGS: Normal anterior atlantoaxial articulation. Normal odontoid process. Normal cervical lordosis. Degenerative changes of the vertebral bodies with spurring at the endplates. Slightly narrowed disc space heights. The soft tissue structures are unremarkable. RAD/Cerv Spine 2 or 3 Views IMPRESSION: Degenerative changes of the visualized cervical spine. Electronically Signed: Bhavesh Freedman DO at 23:52 EDT Tel [phone], Service support ,
== END | disposition home or self-care (01) ==
LOC: RAD 13:55
PROVIDERS: PCP Family Medicine; Referring Provider Anesthesiology Pain Medicine; Visit Provider Anesthesiology Pain Medicine
DX: M54.2 Cervicalgia (principal); M54.5 Low back pain
CPT/HCPCS: 72040; 72100

== ENCOUNTER → 2020-08-04 | Outpatient (CLI) | payer MEDICARE, SELFPAY ==
[2020-05-10 09:16] VITALS: BMI 31.2
[2020-08-04 15:35] LABS: Anion Gap 4 (5-15); BUN 15 mg/dL (7-18); BUN/Creat Ratio 19.7 RATIO (10-20); Chloride 106 mmol/L (98-107); Creatinine, Serum 0.76 mg/dL (0.55-1.02); EST Glomerular Filtration Rate 80 mL/min (>60); Est Glom Filt Rate - Afr Amer 97 mL/min (>60); Glucose 91 mg/dL (74-106); Potassium 4.1 mmol/L (3.5-5.1); Sodium Level 140 mmol/L (136-145); Thyroid Stim Hormone (TSH) 4.97 uIU/mL (0.358-3.74)
[2020-08-04 15:57] LABS: BNP,B-Type NATRIURETIC PEPTIDE 35.6 pg/mL (0-100)
== END | disposition home or self-care (01) ==
LOC: BFHLAB 13:04
PROVIDERS: PCP Family Medicine; Visit Provider Family Medicine
DX: E03.9 Hypothyroidism, unspecified (principal); R60.0 Localized edema
CPT/HCPCS: 36415; 80048; 83880; 84443

== ENCOUNTER → 2020-10-26 09:48 | Outpatient (CLI) | payer MEDICARE, SELFPAY ==
[2020-05-10 09:16] VITALS: BMI 31.2
[2020-10-26 13:02] LABS: Anion Gap 4 (5-15); BUN 14 mg/dL (7-18); BUN/Creat Ratio 17.5 RATIO (10-20); Calcium,Total 8.9 mg/dL (8.5-10.1); Chloride 107 mmol/L (98-107); Cholesterol 247 mg/dL (200); EST Glomerular Filtration Rate 75 mL/min (>60); Est Glom Filt Rate - Afr Amer 91 mL/min (>60); Glucose 98 mg/dL (74-106); High Density Lipoprotein 47 mg/dL; Sodium Level 138 mmol/L (136-145); Thyroid Stim Hormone (TSH) 3.52 uIU/mL (0.358-3.74); Triglycerides 115 mg/dL; Very Low Density Lipoprotein 23 mg/dL (5-40)
== END ==
PROVIDERS: PCP Family Medicine; Visit Provider Family Medicine
DX: I10 Essential (primary) hypertension (principal); E03.9 Hypothyroidism, unspecified
CPT/HCPCS: 36415; 80048; 80061; 84443

== ENCOUNTER → 2021-05-30 06:39 | Outpatient (CLI) | payer MEDICARE, SELFPAY ==
[2020-05-10 09:16] VITALS: BMI 31.2
[2021-05-30 08:27] LABS: AST(SGOT) 26 U/L (15-37); Alanine Aminotransfer ALT/SGPT 31 U/L (13-56); Albumin, Serum 3.7 g/dL (3.2-5.0); Alkaline Phosphatase 71 U/L (45-117); Bilirubin, Direct 0.12 mg/dL (0.00-0.30); Cholesterol 189 mg/dL (200); Globulin 3.2 g/dL (2.2-4.2); High Density Lipoprotein 44 mg/dL; Protein, Total 6.9 g/dL (6.4-8.2); Triglycerides 119 mg/dL; Very Low Density Lipoprotein 24 mg/dL (5-40)
[2021-05-30 18:31] LABS: Thyroid Stim Hormone (TSH) 0.25 uIU/mL (0.358-3.74)
== END ==
PROVIDERS: PCP Family Medicine; Referring Provider Family Medicine; Visit Provider Family Medicine
DX: I10 Essential (primary) hypertension (principal); E03.9 Hypothyroidism, unspecified
CPT/HCPCS: 36415; 80061; 80076; 84443

== ENCOUNTER 2021-07-09 12:09 | Inpatient (IN) | payer MEDICARE, SELFPAY ==
[2020-05-10 09:16] VITALS: BMI 31.2
[2021-07-09] VITALS (7 sets, daily range): BP systolic 114–154; BP diastolic 69–86; PULSE 74–100; RESP 18–22; TEMP 36.2–37.7; O2SAT 87–96; BMI 32.9
--- NOTE | 2021-07-09 12:24 | EKG12_ITS ---
Test Reason : GENERAL ILLNESS Blood Pressure : / mmHG Vent. Rate : 090 BPM Atrial Rate : 090 BPM P-R Int : 162 ms QRS Dur : 084 ms QT Int : 358 ms P-R-T Axes : 067 034 038 degrees QTc Int : 437 ms Normal sinus rhythm Nonspecific ST abnormality Abnormal ECG Confirmed by JAYLEN GUZMAN, MAN ([id number]), industrial editor NORA OBANDO ([id number]) on 07/11/2021 10:04:23 AM Referred By: GEOFF/CUATE Confirmed By:MAN YORK MD
--- NOTE | 2021-07-09 12:26 | EDS_ITS ---
HPI History of Present Illness Chief Complaint: General Illness Informant: patient Onset/Context/Timing Onset: Weeks (2 weeks) Context: Gradual Onset Current Severity: Moderate Maximum Severity: Moderate Narrative Narrative: Patient presents with a 2-week history of fever, chills, cough, chest tightness. Patient states her most recent fever was just 2 days ago. [facility] Medical History (Updated 07/09/21 @ 15:[address] Mildred Arias MD) Arthritis Bladder leak Breast lump in female Cataracts, bilateral Chronic bronchitis COPD (chronic obstructive pulmonary disease) Former smoker GERD (gastroesophageal reflux disease) High cholesterol History of pneumonia Hormone deficiency HTN (hypertension) Hypoglycemia Hypothyroid IBS (irritable bowel syndrome) Melanoma in situ of left lower leg Migraines Osteoarthritis Osteoporosis PCOS (polycystic ovarian syndrome) Skin cancer Vision problems Home Medications esomeprazole magnesium 40 mg capsule,delayed release 40 mg PO DAILY cap 01/19/19 [History Last Taken 10/27/19 06:45] thyroid (pork) 120 mg tablet 90 mg PO DAILY 01/19/19 [History Last Taken 10/27/19 06:45] acetaminophen 650 mg tablet,extended release 650 mg PO PRN PRN tab 09/30/19 [History Last Taken Unknown] estradiol 0.5 mg PO DAILY 10/14/19 [History Last Taken 10/27/19 06:45] fluorometholone 1 drp EACH EYE BID 10/14/19 [History Last Taken Unknown] ketoconazole 120 ml TP MOWEFR 10/14/19 [History Last Taken Unknown] metronidazole 45 gm TP DAILY 10/14/19 [History Last Taken Unknown] nlvkisnjtlit-Pj-stfl-minerals 1 ea PO DAILY 10/14/19 [History Last Taken Unknown] cholecalciferol (vitamin D3) 125 mcg (5,000 unit) tablet 125 mcg PO DAILY 05/10/20 [History Last Taken Unknown] Allergy/AdvReac Type Severity Reaction Status Date / Time No Known Allergies Allergy Verified 05/10/20 09:15 Family History Mother Cancer lung Arthritis Lung cancer Father Hypertension Arthritis Other Breast cancer Family history of breast cancer High cholesterol Ovarian cancer Thyroid disorder Surgical History History of melanoma excision LOWER DENTAL IMPLANTS S/P abdominoplasty S/P bunionectomy S/P hysterectomy s/p kyphoblasty S/P nasal septoplasty s/p right ovarian cystectomy Status post hernia repair Social History Smoking Status: Former smoker alcohol intake: current substance use type: does not use additional social history: DOES NOT USE ASPIRIN DOES NOT USE IBUPROFEN ROS ROS ED Constitutional Constitutional ED: Reports fever(s); Denies chills Eyes Eyes: Denies change in vision ENT ENT ED: Denies sore throat Cardiovascular Cardiovascular: Reports chest pain Respiratory/Chest Respiratory/Chest: Reports cough, dyspnea and sputum Gastrointestinal Gastrointestinal: Denies abdominal pain, diarrhea, nausea or vomiting Genitourinary Genitourinary ED: Denies dysuria Musculoskeletal Musculoskeletal: Reports myalgias; Denies back pain Integumentary Denies rash Neurologic Neurologic: Denies headache(s) or weakness Psychiatric Psychiatric: Denies anxiety or depression Allergic/Immunologic Allergic/Immunologic ED: Denies urticaria EXAM Physical Exam Const Vital Signs: 07/09/21 12:10 07/09/21 13:00 07/09/21 14:50 Temperature 98.1 F Temperature Source Temporal Pulse Rate 100 Respiratory Rate 22 H 22 H Respiratory Effort Normal Non-Labored Respiratory Pattern Normal Blood Pressure 128/84 H Blood Pressure Mean 98 Pulse Ox 90 87 Oxygen Delivery Method Room Air Room Air Oxygen Flow Rate (L/min) 07/09/21 14:56 07/09/21 14:57 Temperature 99.8 F H Temperature Source Temporal Pulse Rate 84 Respiratory Rate 22 H Respiratory Effort Respiratory Pattern Blood Pressure 154/84 H Blood Pressure Mean 107 Pulse Ox 92 91 Oxygen Delivery Method Nasal Cannula Nasal Cannula Oxygen Flow Rate (L/min) 2 2 Positive well nourished and well developed General Appearance ED: well developed HEENT Reports normocephalic and head/scalp atraumatic Eyes PERRL and EOMs intact bilaterally Neck supple Chest Wall inspection of chest normal and palpation of chest normal Resp normal respiratory effort Auscultation: diminished lung sounds Cardio regular rate and regular rhythm GI non-tender Auscultation: hypoactive bowel sounds Palpation: soft Extremity normal to inspection Neuro oriented x3 and no sensory deficits noted Sensorium / Orientation: alert Motor Exam: strength 5/5 throughout Psych mental status grossly normal Skin no rashes or lesions noted MDM MDM MDM Narrative Medical decision making narrative: Chest x-ray, labs, EKG, Covid swab obtained. Lab Data Attestation: I reviewed the patient's lab results. Labs: Laboratory Results - last 24 hr 07/09/21 07/09/21 07/09/21 12:40 12:40 12:40 WBC 4.5 RBC 4.84 Hgb 14.7 Hct 43.5 MCV 89.9 MCH 30.4 MCHC 33.8 RDW Std Deviation 39.6 RDW Coeff of Amy 12.0 Plt Count 153 MPV 10.0 Immature Gran % (Auto) 0.700 Neut % (Auto) 79.5 H Lymph % (Auto) 15.2 L Bennett % (Auto) 4.4 Eos % (Auto) 0.0 Baso % (Auto) 0.2 Absolute Neuts (auto) 3.6 Absolute Lymphs (auto) 0.69 L Nucleated RBC % 0 Reactive Lymphocytes RARE D-Dimer Quant (PE/DVT) 0.85 H* Sodium 127 L Potassium 3.3 L Chloride 90 L Carbon Dioxide 25.0 Anion Gap 12 BUN 15 Creatinine 1.02 Estim Creat Clear Calc 40.01 Est GFR (MDRD) Af Amer 69 Est GFR (MDRD) Non-Af 57 L BUN/Creatinine Ratio 14.7 Glucose 111 H Lactic Acid Calcium 8.1 L Troponin I High Sens 16.9 07/09/21 12:40 WBC RBC Hgb Hct MCV MCH MCHC RDW Std Deviation RDW Coeff of Amy Plt Count MPV Immature Gran % (Auto) Neut % (Auto) Lymph % (Auto) Bennett % (Auto) Eos % (Auto) Baso % (Auto) Absolute Neuts (auto) Absolute Lymphs (auto) Nucleated RBC % Reactive Lymphocytes D-Dimer Quant (PE/DVT) Sodium Potassium Chloride Carbon Dioxide Anion Gap BUN Creatinine Estim Creat Clear Calc Est GFR (MDRD) Af Amer Est GFR (MDRD) Non-Af BUN/Creatinine Ratio Glucose Lactic Acid 1.6 Calcium Troponin I High Sens Radiography Chest X-Ray - ED: 1 View, Read by ED Physician and Chronic Changes Diagnostic Testing: Radiology Impression Chest X-Ray 07/09/21 13:12 IMPRESSION: No acute abnormality is seen. Electronically Signed: Jeyson Acosta MD at 13:34 EDT , Service support , Chest CTA 07/09/21 13:29 IMPRESSION: Multiple bilateral patchy areas of alveolar infiltrates in both lungs involving both the upper and lower lobes in the preferential peripheral distribution. Pneumonitis secondary to Covid 19 infection should be ruled out. No evidence of pulmonary emboli. Electronically Signed: Jeyson Acosta MD at 14:32 EDT , Service support , EKG Initial EKG: Attestation: I personally reviewed and interpreted this EKG as follows: Interpretation: Sinus Rhythm (Sinus at 90 with no acute ischemia.) Treatment and Re-Evaluation Comments:: I was notified by nursing staff that the patient did drop her O2 sat to 86 to 87% on room air. She was placed on 2 L. Covid swab is positive. Chest x-ray per my interpretation shows no obvious infiltrates. Lab work does reveal a sodium of 127, potassium 3.3. D-dimer is elevated. CTA of the chest is obtained and does reveal evidence of peripheral infiltrates consistent with Covid pneumonia. Patient was given oral potassium replacement. Dose of IV Decadron is ordered. Patient was ordered 1 L of IV fluid secondary to her hyponatremia. At this time patient is requiring O2 with her Covid pneumonia. I will speak with the hospitalist regarding admission. Discharge Plan Triage Chief Complaint: General Illness ED Provider: Mildred Arias Dx/Rx/DC Orders Clinical Impression: Pneumonia due to 2018- Prescriptions: No Action thyroid (pork) [[place] Thyroid] 120 mg tablet 90 mg PO DAILY RF: 0 esomeprazole magnesium 40 mg capsule,delayed release(DR/EC) 40 mg PO DAILY RF: 0 acetaminophen 650 mg tablet extended release 650 mg PO PRN PRN (Reason: Pain Or Fever) RF: 0 cholecalciferol (vitamin D3) [Vitamin D3] 125 mcg (5,000 unit) tablet 125 mcg PO DAILY RF: 0 ketoconazole 120 ML shampoo 120 ml TP MOWEFR RF: 0 estradiol 0.5 MG tablet 0.5 mg PO DAILY RF: 0 metronidazole 45 GM gel 45 gm TP DAILY RF: 0 caapndqsaevj-Fp-uyss-minerals 1 EACH tablet 1 ea PO DAILY RF: 0 fluorometholone 1 DROP bottle 1 drp EACH EYE BID RF: 0 Primary Care Provider: Little Sullivan Referrals: Little Sullivan MD [Primary Care Provider] - Disposition Disposition: Acute Care Hospital [facility]
[2021-07-09 12:53] LABS: Absolute Lymphocyte Count 0.69 X10^3/uL (0.83-4.51); Absolute Neutrophil Count 3.6 X10^3/uL (2.0-7.7); Basophil# 0.01 X10^3/uL; Basophil% 0.2 % (0-1); Hematocrit 43.5 % (37-47); Hemoglobin 14.7 g/dL (12.0-15.0); Lymphocyte # 0.69 X10^3/ul (0.83-4.51); Lymphocyte % 15.2 % (19-41); Mean Corp Hgb Conc 33.8 g/dL (32-36); Mean Corpuscular Hgb 30.4 pg (27.0-32.0); Mean Corpuscular Volume 89.9 fL (81-99); Monocyte% 4.4 % (0-10); NRBC Flagged by Analyzer 0 % (0-5); Neutrophil # 3.61 X10^3/uL (2.7-7.7); Neutrophil % 79.5 % (47-70); POSITIVE MORPHOLOGY YES; Platelet Count 153 K/mm3 (150-450); RBC Distribution Width SD 39.6 fl (35.1-43.9); Red Blood Count 4.84 M/mm3 (4.2-5.4); White Blood Count 4.5 K/mm3 (4.4-11.0)
[2021-07-09 12:55] LABS: Differential Indicated SCAN CRITERIA MET
[2021-07-09 13:06] LABS: D-Dimer Quantitative (DVT/PE) 0.85 FEU/ug/m (0.27-0.49)
[2021-07-09 13:11] LABS: Anion Gap 12 (5-15); BUN 15 mg/dL (7-18); BUN/Creat Ratio 14.7 RATIO (10-20); Calcium,Total 8.1 mg/dL (8.5-10.1); Chloride 90 mmol/L (98-107); Creatinine, Serum 1.02 mg/dL (0.55-1.02); EST Glomerular Filtration Rate 57 mL/min (>60); Est Glom Filt Rate - Afr Amer 69 mL/min (>60); Estimated Creatinine Clearance 40.01 ml/min; Glucose 111 mg/dL (74-106); Potassium 3.3 mmol/L (3.5-5.1); Sodium Level 127 mmol/L (136-145); Troponin-I HS 16.9 pg/mL (3.0-53.7)
--- NOTE | 2021-07-09 13:12 | RAD_ITS ---
STUDY: X-RAY CHEST REASON FOR EXAM: Female, 70 years old. Fever and chills. Cough. Weakness. Chest tightness. TECHNIQUE: Single AP portable view of the chest. COMPARISON: None. FINDINGS: EKG electrodes are seen. Elevation of the right hemidiaphragm. The lungs are clear. There is no demonstrated pleural abnormality. Normal size heart. Normal mediastinum and daniel. Normal visualized pulmonary arteries. There is atherosclerotic tortuosity of the aortic arch and descending thoracic aorta. There are diffuse degenerative changes of the visualized thoracic spine. Normal visualized ribs, clavicles, and shoulders. There is no demonstrated abnormality of the visualized soft tissue structures of the upper abdomen. RAD/Chest 1 View (Portable) IMPRESSION: No acute abnormality is seen. Electronically Signed: Jeyson Acosta MD at 13:34 EDT , Service support ,
[2021-07-09 13:16] LABS: Reactive Lymphocyte RARE
[2021-07-09 13:26] LABS: Lactic Acid 1.6 mmol/L (0.4-1.9)
--- NOTE | 2021-07-09 13:29 | CT_ITS ---
STUDY: CTA CHEST REASON FOR EXAM: Female, 70 years old. SOB, + D-dimer RADIATION DOSAGE (If Supplied By Facility): CTDIvol = ( 7.64 ) mGy, DLP = ( 344.67 ) mGycm TECHNIQUE: The examination was performed with the intravenous administration of IV 100mL Isovue-370. Post-processing of the angiographic images was performed, with multiplanar reformation and 3D reconstruction. Individualized dose optimization techniques were used for this CT. COMPARISON: Comparison is made with prior chest radiograph done earlier today. FINDINGS: Normal enhancement of the main pulmonary artery and right and left pulmonary arteries. Normal enhancement of the bilateral peripheral pulmonary arteries. There is no demonstrated pulmonary embolism. Normal thoracic aorta and visualized great vessels. There is no demonstrated aortic dissection. Normal heart and pericardium. Normal mediastinum. Normal hilar regions. Normal visualized trachea and bronchi. The lungs are well expanded. Multiple patchy areas of alveolar infiltrates in both lungs involving both the upper and lower lobes. There is a preferential peripheral distribution. Pneumonitis secondary to Covid infection should be ruled out. Normal pleura. Normal chest wall structures. There are degenerative changes of thoracic spine. Fatty infiltration of the liver. Small hiatal hernia. CT/CTA Chest W/WO Contrast IMPRESSION: Multiple bilateral patchy areas of alveolar infiltrates in both lungs involving both the upper and lower lobes in the preferential peripheral distribution. Pneumonitis secondary to Covid 19 infection should be ruled out. No evidence of pulmonary emboli. Electronically Signed: Jeyson Acosta MD at 14:32 EDT , Service support ,
[2021-07-09] MEDS: Potassium Chloride Oral Tablet 20 MEQ 40 MEQ PO (13:44)
[2021-07-09] MEDS: 0.9% Normal Saline 1,000 ML 999 ML IV (13:44)
--- NOTE | 2021-07-09 15:31 | NURSING ---
HOSPITALIST FOR DR ZEPEDA
--- NOTE | 2021-07-09 15:33 | NURSING ---
DR DIAZ IN ER
--- NOTE | 2021-07-09 15:34 | NURSING ---
MED SURG [facility] COVID PNEUMONIA
[2021-07-09] MEDS: dexAMETHasone 10 MG/ML Vial 6 MG IV (15:42)
--- NOTE | 2021-07-09 15:58 | PCM.HP.STD ---
HPI - General General Date of Admission: 07/09/21 Date of Service: 07/09/21 Chief Complaint: shortness of breath HPI Narrative HORTENCIA SERRANO, is a 70 F who presents with shortness of breath. Patient has been feeling sick for 2weeks and presented to the emergency room where she was diagnosed with COVID-19. Patient received 6 mg of IV dexamethasone. Patient is unsure how she contracted it. She did not get the Covid vaccine because I did not see a reason to. Despite feeling sick patient was still working. ON LICENSE OF [facility] Medical History Arthritis Bladder leak Breast lump in female Cataracts, bilateral Chronic bronchitis COPD (chronic obstructive pulmonary disease) Former smoker GERD (gastroesophageal reflux disease) High cholesterol History of pneumonia Hormone deficiency HTN (hypertension) Hypoglycemia Hypothyroid IBS (irritable bowel syndrome) Melanoma in situ of left lower leg Migraines Osteoarthritis Osteoporosis PCOS (polycystic ovarian syndrome) Skin cancer Vision problems Home Medications thyroid (pork) 120 mg tablet 90 mg PO DAILY 01/19/19 [History Last Taken 10/27/19 06:45] cholecalciferol (vitamin D3) 125 mcg (5,000 unit) tablet 125 mcg PO DAILY 05/10/20 [History Last Taken Unknown] minocycline 50 mg PO DAILY 07/09/21 [History Last Taken Unknown] hgtgwyem-pfgvavf-fiwe-lutein [Centrum Silver Ultra Women's] 1 tab PO DAILY 07/09/21 [History Last Taken 2 Weeks Ago ~06/25/21] Allergy/AdvReac Type Severity Reaction Status Date / Time No Known Allergies Allergy Verified 05/10/20 09:15 Family History Mother Cancer lung Arthritis Lung cancer Father Hypertension Arthritis Other Breast cancer Family history of breast cancer High cholesterol Ovarian cancer Thyroid disorder Surgical History History of melanoma excision LOWER DENTAL IMPLANTS S/P abdominoplasty S/P bunionectomy S/P hysterectomy s/p kyphoblasty S/P nasal septoplasty s/p right ovarian cystectomy Status post hernia repair Social History Smoking Status: Former smoker alcohol intake: current substance use type: does not use additional social history: DOES NOT USE ASPIRIN DOES NOT USE IBUPROFEN ROS ROS Narrative Chest pain when she coughs. She no fever chills. Nasal congestion. No anosmia no dysgeusia. All review of systems were negative except as mentioned above in the history of present illness and the other review of systems. Vital Signs Vital Signs Vital Signs: 07/09/21 12:10 07/09/21 13:00 07/09/21 14:50 Temperature 36.7 C Temperature Source Temporal Pulse Rate 100 Respiratory Rate 22 H 22 H Respiratory Effort Normal Non-Labored Respiratory Pattern Normal Blood Pressure 128/84 H Blood Pressure Mean 98 Pulse Ox 90 87 Oxygen Delivery Method Room Air Room Air Oxygen Flow Rate (L/min) 07/09/21 14:56 07/09/21 14:57 07/09/21 15:48 Temperature 37.7 C H 37.7 C H Temperature Source Temporal Temporal Pulse Rate 84 81 Respiratory Rate 22 H 21 H Respiratory Effort Respiratory Pattern Blood Pressure 154/84 H 148/86 H Blood Pressure Mean 107 106 Pulse Ox 92 91 95 Oxygen Delivery Method Nasal Cannula Nasal Cannula Nasal Cannula Oxygen Flow Rate (L/min) 2 2 2 Weight Weight: 81.647 kg Body Mass Index (BMI) 32.9 Physical Exam Const alert General Appearance: cooperative HEENT normocephalic Resp normal respiratory effort, no retractions and no use of accessory muscles Resp Narrative: Coarse breath sounds Cardio regular rate, regular rhythm, S1 normal heart sound and S2 normal heart sound GI normal to inspection, nondistended, normoactive bowel sounds, soft to palpation, non-tender and non-distended Skin no rashes or lesions noted Neuro Sensorium / Orientation: awake and alert Psych affect normal Results Lab / Micro Data Attestation: I reviewed the patient's lab results. Result Diagrams: 07/09/21 12:40 07/09/21 12:40 Labs: Laboratory Results - last 24 hr 07/09/21 12:40: WBC 4.5, RBC 4.84, Hgb 14.7, Hct 43.5, MCV 89.9, MCH 30.4, MCHC 33.8, RDW Std Deviation 39.6, RDW Coeff of Amy 12.0, Plt Count 153, MPV 10.0, Immature Gran % (Auto) 0.700, Neut % (Auto) 79.5 H, Lymph % (Auto) 15.2 L, Vernon % (Auto) 4.4, Eos % (Auto) 0.0, Baso % (Auto) 0.2, Absolute Neuts (auto) 3.6, Absolute Lymphs (auto) 0.69 L, Nucleated RBC % 0, Reactive Lymphocytes RARE 07/09/21 12:40: D-Dimer Quant (PE/DVT) 0.85 H* 07/09/21 12:40: Sodium 127 L, Potassium 3.3 L, Chloride 90 L, Carbon Dioxide 25.0, Anion Gap 12, BUN 15, Creatinine 1.02, Estim Creat Clear Calc 40.01, Est GFR (MDRD) Af Amer 69, Est GFR (MDRD) Non-Af 57 L, BUN/Creatinine Ratio 14.7, Glucose 111 H, Calcium 8.1 L, Troponin I High Sens 16.9 07/09/21 12:40: Lactic Acid 1.6 Micro: Microbiology 07/09/21 13:02 Mucosa - Nose SARS-CoV-2 Antigen (Rapid) - Final SARS-CoV-2 (COVID 19) Radiology Impression Chest X-Ray 07/09/21 13:12 IMPRESSION: No acute abnormality is seen. Electronically Signed: Jeyson Acosta MD at 13:34 EDT , Service support , Chest CTA 07/09/21 13:29 IMPRESSION: Multiple bilateral patchy areas of alveolar infiltrates in both lungs involving both the upper and lower lobes in the preferential peripheral distribution. Pneumonitis secondary to Covid 19 infection should be ruled out. No evidence of pulmonary emboli. Electronically Signed: Jeyson Acosta MD at 14:32 EDT , Service support , Assessment & Plan Assessment/Plan (1) Pneumonia due to 2019-nCoV: PLAN: 1. Acute COVID-19 pneumonia Date of onset was 2 weeks ago, roughly around 25 June. Patient will need to quarantine through the . Patient mistakenly thought that she got the vaccine while she was in the emergency room. Told her that she did not receive the vaccine and that she should have been vaccinated beforehand. She told me that she did not see a reason to get vaccinated for COVID-19. Informed the patient that it is unclear as to her clinical progression if this is the worst of it or this is just beginning of a progression of the COVID-19. Currently, she is hemodynamically stable and tolerating 2 L nasal cannula very well. Though I am concerned that she could very well get worse. For now we will continue with dexamethasone but if she does continue to decline then will consult infectious disease patient would be a candidate for any additional therapies 2. Hypothyroidism On [place] Thyroid Check TSH 3. Hypokalemia Replace the emergency room Recheck and check magnesium in the morning 4. VTE prophylaxis: High risk given acute COVID-19. Low molecular weight heparin 5. CODE STATUS: Asked patient if she want to be intubated. Patient stated that she would not but she had misconception about intubation such that he could take it at home. I told her that that would not be the case and if she were to get much more short of breath where she may need endotracheal intubation which should be okay with that. After further discussion she agreed to proceed if that were necessary. I did try to reassure her that there are many steps that would be necessary before that became indicated. Therefore, the patient is full CODE STATUS. Charges/Coding Visit Charges Inpatient E&M: 28268 Init Hosp L3
[2021-07-09] MEDS: Acetaminophen 325 MG Tablet 650 MG PO (17:24)
[2021-07-10] MEDS: Acetaminophen 325 MG Tablet 650 MG PO ×2 (04:50→19:26)
[2021-07-10 04:52] VITALS: BP 104/70; PULSE 76; RESP 18; TEMP 35.8; O2SAT 96
[2021-07-10 06:54] LABS: Absolute Lymphocyte Count 0.77 X10^3/uL (0.83-4.51); Absolute Neutrophil Count 3.3 X10^3/uL (2.0-7.7); Basophil# 0.01 X10^3/uL; Basophil% 0.2 % (0-1); Hematocrit 44.2 % (37-47); Lymphocyte # 0.77 X10^3/ul (0.83-4.51); Lymphocyte % 17.7 % (19-41); Mean Corp Hgb Conc 33.9 g/dL (32-36); Mean Corpuscular Hgb 30.5 pg (27.0-32.0); Mean Corpuscular Volume 89.8 fL (81-99); Mean Platelet Vol. 10.3 fl (6.2-12.0); Monocyte# 0.22 X10^3/uL; Monocyte% 5.1 % (0-10); NRBC Flagged by Analyzer 0 % (0-5); Neutrophil # 3.32 X10^3/uL (2.7-7.7); Neutrophil % 76.5 % (47-70); POSITIVE MORPHOLOGY YES; Platelet Count 165 K/mm3 (150-450); RBC Distribution Width CV 12.1 % (11.6-14.6); RBC Distribution Width SD 40.1 fl (35.1-43.9); Red Blood Count 4.92 M/mm3 (4.2-5.4); White Blood Count 4.3 K/mm3 (4.4-11.0)
[2021-07-10 07:01] LABS: Differential Indicated SCAN CRITERIA MET
[2021-07-10 07:22] LABS: ALB/GLOB Ratio 0.7 RATIO (0.9-2.4); AST(SGOT) 66 U/L (15-37); Alanine Aminotransfer ALT/SGPT 45 U/L (13-56); Albumin, Serum 2.9 g/dL (3.2-5.0); Alkaline Phosphatase 43 U/L (45-117); Anion Gap 8 (5-15); BUN 16 mg/dL (7-18); BUN/Creat Ratio 23.5 RATIO (10-20); Calcium,Total 8.2 mg/dL (8.5-10.1); Chloride 100 mmol/L (98-107); Creatinine, Serum 0.68 mg/dL (0.55-1.02); EST Glomerular Filtration Rate 90 mL/min (>60); Est Glom Filt Rate - Afr Amer 109 mL/min (>60); Estimated Creatinine Clearance 40.81 ml/min; Globulin 3.9 g/dL (2.2-4.2); Glucose 132 mg/dL (74-106); Magnesium 2.6 mg/dL (1.6-2.6); Protein, Total 6.8 g/dL (6.4-8.2); Sodium Level 131 mmol/L (136-145)
[2021-07-10 09:30] VITALS: O2SAT 96
--- NOTE | 2021-07-10 09:39 | PN.HOSP_ITS ---
Subjective Subjective Breathing well with oxygen. Proclaims her belief that EFREN is a communist conspiracy. Objective Data Objective Data Vital Signs: Vital Signs Temp Pulse Resp BP Pulse Ox 35.8 C L 76 18 104/70 96 07/10/21 04:52 07/10/21 04:52 07/10/21 04:52 07/10/21 04:52 07/10/21 09:30 Oxygen Flow Rate (L/min) 4 Oxygen Delivery Method Nasal Cannula Weight: 81.64 kg Body Mass Index (BMI) 32.9 Intake & Output: Intake and Output for Last 24 Hours 07/08/21 07/09/21 07/10/21 23:59 23:59 23:59 Intake Total 1200 / 1200 Balance 1200 / 1200 Lab / Micro Data Result Diagrams: 07/10/21 06:34 07/10/21 06:34 Labs: Laboratory Results - last 24 hr 07/09/21 12:40: WBC 4.5, RBC 4.84, Hgb 14.7, Hct 43.5, MCV 89.9, MCH 30.4, MCHC 33.8, RDW Std Deviation 39.6, RDW Coeff of Amy 12.0, Plt Count 153, MPV 10.0, Immature Gran % (Auto) 0.700, Neut % (Auto) 79.5 H, Lymph % (Auto) 15.2 L, [place] % (Auto) 4.4, Eos % (Auto) 0.0, Baso % (Auto) 0.2, Absolute Neuts (auto) 3.6, Absolute Lymphs (auto) 0.69 L, Nucleated RBC % 0, Reactive Lymphocytes RARE 07/09/21 12:40: D-Dimer Quant (PE/DVT) 0.85 H* 07/09/21 12:40: Sodium 127 L, Potassium 3.3 L, Chloride 90 L, Carbon Dioxide 25.0, Anion Gap 12, BUN 15, Creatinine 1.02, Estim Creat Clear Calc 40.01, Est GFR (MDRD) Af Amer 69, Est GFR (MDRD) Non-Af 57 L, BUN/Creatinine Ratio 14.7, Glucose 111 H, Calcium 8.1 L, Troponin I High Sens 16.9 07/09/21 12:40: Lactic Acid 1.6 07/10/21 06:34: WBC 4.3 L, RBC 4.92, Hgb 15.0, Hct 44.2, MCV 89.8, MCH 30.5, MCHC 33.9, RDW Std Deviation 40.1, RDW Coeff of Amy 12.1, Plt Count 165, MPV 10.3, Immature Gran % (Auto) 0.500, Neut % (Auto) 76.5 H, Lymph % (Auto) 17.7 L, [place] % (Auto) 5.1, Eos % (Auto) 0.0, Baso % (Auto) 0.2, Absolute Neuts (auto) 3.3, Absolute Lymphs (auto) 0.77 L, Nucleated RBC % 0 07/10/21 06:34: Sodium 131 L, Potassium 4.0, Chloride 100, Carbon Dioxide 23.0, Anion Gap 8, BUN 16, Creatinine 0.68, Estim Creat Clear Calc 40.81, Est GFR (MDRD) Af Amer 109, Est GFR (MDRD) Non-Af 90, BUN/Creatinine Ratio 23.5 H, Glucose 132 H, Calcium 8.2 L, Magnesium 2.6, Total Bilirubin 0.50, AST 66 H, ALT 45, Alkaline Phosphatase 43 L, Total Protein 6.8, Albumin 2.9 L, Globulin 3.9, Albumin/Globulin Ratio 0.7 L Micro: Microbiology 07/09/21 13:02 Mucosa - Nose SARS-CoV-2 Antigen (Rapid) - Final SARS-CoV-2 (COVID 19) Radiography Diagnostic Testing: Radiology Impression Chest X-Ray 07/09/21 13:12 IMPRESSION: No acute abnormality is seen. Electronically Signed: Jeyson Acosta MD at 13:34 EDT , Service support , Chest CTA 07/09/21 13:29 IMPRESSION: Multiple bilateral patchy areas of alveolar infiltrates in both lungs involving both the upper and lower lobes in the preferential peripheral distribution. Pneumonitis secondary to Covid 19 infection should be ruled out. No evidence of pulmonary emboli. Electronically Signed: Jeyson Acosta MD at 14:32 EDT , Service support , Physical Exam Const alert Constitutional Narrative: no respiratory distress. no conversational dyspnea Resp normal respiratory effort and no retractions Resp Narrative: bibasilar crackles Cardio regular rate, regular rhythm, S1 normal heart sound and S2 normal heart sound GI normal to inspection, nondistended, normoactive bowel sounds, soft to palpation, non-tender and non-distended Extremity normal to inspection Assessment & Plan Assessment/Plan (1) Pneumonia due to 2019-nCoV: PLAN: 1. Acute COVID-19 pneumonia Date of onset was 2 weeks ago, roughly around 25 June. Patient will need to quarantine through the . Patient mistakenly thought that she got the vaccine while she was in the emergency room. Told her that she did not receive the vaccine and that she should have been vaccinated beforehand. Again, I reminded her that she did not get the vaccine in the ED. She told me that she did not see a reason to get vaccinated for COVID-19. I recommended she get vaccinated after she recovers from this current infection. Again, informed the patient that it is unclear as to her clinical progression if this is the worst of it or this is just beginning of a progression of the COVID- 19. Currently, she is hemodynamically stable and tolerating 4 L nasal cannula very well. Though I am concerned that she could very well get worse. For now we will continue with dexamethasone but if she does continue to decline then will consult infectious disease patient would be a candidate for any additional therapies She is out of the window for remdesivir. I directly disputed her claim that COVID-19 is a communist conspiracy. I told her that health care providers involved in her care and other with COVID 19 are placing themselves at risk and most certainly are not part of a communist kip. 2. Hypothyroidism On [place] Thyroid Check TSH 3. Hypokalemia Resolved with replacement Magnesium normal 4. VTE prophylaxis: High risk given acute COVID-19. Low molecular weight heparin 5. CODE STATUS: Asked patient if she want to be intubated. Patient stated that she would not but she had misconception about intubation such that he could take it at home. I told her that that would not be the case and if she were to get much more short of breath where she may need endotracheal intubation which should be okay with that. After further discussion she agreed to proceed if that were necessary. I did try to reassure her that there are many steps that would be necessary before that became indicated. Therefore, the patient is full CODE STATUS. Greater than 35 min of which greater than for present time was during the patient about Covid, recovery from Covid, potential return to work and also disputing the patient's conspiracy claims. Charges/Coding Visit Charges Inpatient E&M: 53206 Subs Hosp L3
[2021-07-10 11:18] VITALS: BP 117/79; PULSE 75; RESP 18; TEMP 36.6; O2SAT 95
[2021-07-10] MEDS: Enoxaparin 40 MG/0.4 ML Syringe SC (11:35)
[2021-07-10] MEDS: dexAMETHasone 4 MG Tablet 6 MG PO (11:37)
[2021-07-10] MEDS: Pantoprazole Sodium 40 MG Tablet PO (11:37)
[2021-07-10] MEDS: Cholecalciferol (VIT D3) 25 MCG TABLET (1,000 UNITS) 125 MCG PO (11:38)
[2021-07-10] MEDS: Thyroid 60 MG Tablet 90 MG PO (11:40)
[2021-07-10] MEDS: Lisinopril 2.5 MG Tablet PO (11:41)
--- NOTE | 2021-07-10 13:45 | CASEMGMT ---
KATY ALVES NEUROLOGICAL SURGEON CM to room to meet with patient for initial transition planning/care coordination assessment. KATY ALVES introduced self and role at [facility]. Pt voices understanding and consents to assessment at this time. Pt resting in bed in no distress at this time. Pt is A/O at this time and answers all questions appropriately. Care providers, pharmacy, and demographics verified/updated at this time. PCP: Dr Sullivan Specialists: denies Preferred Pharmacy: [facility] Retail Insurance:[employer] Prescription Benefit: Yes Living Will/HPOA: States does not have LW or HCPOA . Interested in more information and would like to talk w/SW to complete HPOA papers. She states she wants her jujill-lb-nll, Tammy Nails, to be her POA. Pt made aware, if SW unable to meet w/her prior to discharge, that she can make an appt as an OP once she is out of quarantine precautions and meet w/a SW to complete forms. She voices understanding. financial services representative rac card given to RNMehul, to give to pt. SW, Kell Ackerman, made aware of pt wishing to complete POA. LNOK: Dyrctp-vd-rnz, Tammy Nails. Pt wishes for her to be listed as primary contact. Pt has a daughter, Ivon Garcia. Living Arrangements: Lives alone in an apt w/8 steps to get to enter apt. Pt independent prior to illness and was working full-time. Sis-in-law can bring groceries/supplies as needed. Transportation: Pt states drives self and states no transportation concerns at this time. Pt states she drove to [facility] and plans to drive herself home. DME: Denies using any DME. Pt aware she may need oxygen @ discharge. Pt was provided with list of DME providers consistent with the patient's preferred geographic region, medical needs, and insurance network. Pt states [employer]. HHC/SNF: No history of either. Pt denies need for HHC. Pt wishes to return home and states has no concerns with going home at time of discharge. CM to follow for home oxygen needs and any further discharge planning/needs. Pt voices no further concerns/needs at this time. Advised pt to ask for CM if any further questions/concerns/needs arise. Voices understanding. PLAN: Home w/discharge plans in place. CM to follow for any oxygen needs @ discharge. DGiauque BSN RN CM
[2021-07-10 15:02] VITALS: BP 135/81; PULSE 88; RESP 16; TEMP 36.8; O2SAT 92
[2021-07-10 19:32] VITALS: BP 120/84; PULSE 85; RESP 18; TEMP 36.4; O2SAT 96
[2021-07-11] MEDS: Acetaminophen 325 MG Tablet 650 MG PO (04:03)
[2021-07-11 04:06] VITALS: BP 125/69; PULSE 74; RESP 18; TEMP 36.1; O2SAT 94
[2021-07-11 07:47] VITALS: O2SAT 85
[2021-07-11 07:48] VITALS: O2SAT 85; O2SAT 90; O2SAT 92
[2021-07-11 07:49] VITALS: BP 141/70; PULSE 70; RESP 16; TEMP 36.6; O2SAT 92
[2021-07-11] MEDS: Thyroid 60 MG Tablet 90 MG PO (07:53)
[2021-07-11] MEDS: dexAMETHasone 4 MG Tablet 6 MG PO (07:54)
[2021-07-11] MEDS: Cholecalciferol (VIT D3) 25 MCG TABLET (1,000 UNITS) 125 MCG PO (07:55)
[2021-07-11] MEDS: Lisinopril 2.5 MG Tablet PO (07:56)
[2021-07-11] MEDS: Enoxaparin 40 MG/0.4 ML Syringe SC (07:59)
--- NOTE | 2021-07-11 09:14 | PCM.DC ---
Discharge Instructions Diet Discharge Diet: No restrictions Activity Discharge Activity: Return to Normal Activity (ease back into normal routine. ) Return to work on:: 07/23/21 (at the earliest. You may need to extend it longer depending) Additional Activity Instructions:: Self isolate for at least 20 days since symptoms began (06/25-07/15/2021) AND at least one day (24 hours) have passed since resolution of fever without the use of fever-reducing agents AND improvement of symptoms (e.g., cough, shortness of breath) When around people in the same room, wear a face mask. Individuals also in the room should wear a mask. If possible, use a different bathroom and bedroom. Perform adequate hand hygiene. Avoid sharing dishes, glasses, etc. Oxygen continuous. Dressing / Incision Call your doctor if you observe: Fever of 101 or Higher and Shortness of breath Follow Up Care Test Results: Test results from this visit will be discussed in further detail at your follow-up appointment, if applicable. Discharge Plan Admission Admit Date/Time: 07/09/21 15:57 Primary Reason for Your Visit: COVID-19 Attending Provider: William Singleton Primary Care Provider: Little Sullivan Instructions Patient Instructions: Coronavirus Disease 2019 (COVID-19): Caring for Yourself or Others Discharge Orders/Prescriptions Prescriptions: New acetaminophen [Tylenol] 325 mg Tablet 500 mg PO Q4H PRN PRN (Reason: Pain Score 1-10/Temp > 100.7 F) Qty: 0 RF: 0 dexamethasone 4 mg Tablet 6 mg PO DAILY 7 Days Qty: 11 RF: 0 Continued thyroid (pork) [[place] Thyroid] 120 mg tablet 120 mg PO DAILY RF: 0 cholecalciferol (vitamin D3) [Vitamin D3] 125 mcg (5,000 unit) tablet 125 mcg PO DAILY RF: 0 lvtlquen-cjjvhqd-iagm-lutein Tablet 1 tab PO DAILY RF: 0 Discontinued minocycline 50 mg capsule 50 mg PO DAILY RF: 0 Referrals / Follow Up: Little Sullivan MD [Primary Care Provider] - Within 2 Weeks Disposition Disposition (needs filled in before D/C Order can be placed): Home, Self Care
--- NOTE | 2021-07-11 09:21 | DS.PCM_ITS ---
Providers Date of Admission: 07/09/21 Primary Care Physician: Dr. Little Sullivan MD Reason For Visit: COVID PNEUMONIA Diagnosis Discharge Diagnosis (1) Pneumonia due to 2019-nCoV: Status: Acute Code(s): U07.1 - COVID-19; J12.82 - Pneumonia due to coronavirus disease 2019 Medications at Discharge Home Medications thyroid (pork) 120 mg tablet 120 mg PO DAILY 01/19/19 cholecalciferol (vitamin D3) 125 mcg (5,000 unit) tablet 125 mcg PO DAILY 05/10/20 yjrerqht-lmoycvi-rctp-lutein 1 tab PO DAILY 07/09/21 acetaminophen [Tylenol] 500 mg PO Q4H PRN PRN #0 tab 07/11/21 dexamethasone 6 mg PO DAILY 7 Days #11 tab 07/11/21 Hospital Course Operations None Procedures None Summary of Care Provided Minutes Spent on Discharge: 35 Hospital Course: 70-year-old female presents feeling sick for 2 weeks and short of breath. Patient was found to have COVID-19. Patient was unvaccinated. Patient's reasoning for not being vaccinated is was not in need to. Patient was started on dexamethasone and has remained stable. Patient is out of the window for remdesivir. Patient will continue with dexamethasone. Patient also did have hypoxic respiratory insufficiency and was ambulated today and on room air was noted to be 85% on room air and then did require oxygen with with rest and was 92% and then was 90% with oxygen 2 L. Patient will continue with oxygen 2 L continuous. Explained the patient having Covid vaccine may have medicated her illness. Patient is very overwhelmed about having oxygen but also the fact that she has to move out of her apartment in a few weeks. She is asking what can be done from social work standpoint I told her weekly very little as this is was an issue for the patient prior to even axel Covid and the unfort unate timing of her having Covid with her having to move in a few weeks will certainly make that more difficult. Patient did not have any plan and was assuming that she is can get another apartment in July but has not heard definitively whether or not that can occur. Told her I would touch base with social work but may not be anything that they can do for her. Though despite being sick patient was continue to work. Patient did notify her work and I have advised patient to be off until 23 July. That is assuming the patient can be off of oxygen at that time which is unknown. Patient will need to quarantine for a total of 20days which will take her through 15 July. Patient is me dically stable for discharge. Patient is I think having difficulty comprehending the fact that she contracted COVID-19. She had previously stated that it was a communist conspiracy. So she may be having some cognitive dizziness in regards to the fact that she contracted something that she may have not believed was real before. Physical Exam Const alert Resp normal respiratory effort, no retractions, no use of accessory muscles and clear to auscultation bilaterally Cardio regular rate, regular rhythm, S1 normal heart sound and S2 normal heart sound GI normal to inspection, nondistended, normoactive bowel sounds, non-tender and non-distended Weight / BMI Weight Weight: 81.6 kg Body Mass Index (BMI) 32.9 ABG / Lab / Microbiology Data Result Diagrams: 07/10/21 06:34 07/10/21 06:34 Microbiology: Microbiology 07/09/21 13:02 Mucosa - Nose SARS-CoV-2 Antigen (Rapid) - Final SARS-CoV-2 (COVID 19) D/C Instructions Discharge Diet: No restrictions Return to work on: 07/23/21 (at the earliest. You may need to extend it longer depending) Additional Activity Instructions: Self isolate for at least 20 days since symptoms began (06/25-07/15/2021) AND at least one day (24 hours) have passed since resolution of fever without the use of fever-reducing agents AND improvement of symptoms (e.g., cough, shortness of breath) When around people in the same room, wear a face mask. Individuals also in the room should wear a mask. If possible, use a different bathroom and bedroom. Perform adequate hand hygiene. Avoid sharing dishes, glasses, etc. Oxygen continuous. Call your doctor if you observe: Fever of 101 or Higher and Shortness of breath Meaningful Use Info Meaningful Use Diagnoses (Choose all that apply): None applicable Discharge Plan Admission Admit Date/Time: 07/09/21 15:57 Primary Reason for Your Visit: COVID-19 Attending Provider: William Singleton Primary Care Provider: Little Sullivan Instructions Patient Instructions: Coronavirus Disease 2019 (COVID-19): Caring for Yourself or Others Discharge Orders/Prescriptions Prescriptions: New acetaminophen [Tylenol] 325 mg Tablet 500 mg PO Q4H PRN PRN (Reason: Pain Score 1-10/Temp > 100.7 F) Qty: 0 RF: 0 dexamethasone 4 mg Tablet 6 mg PO DAILY 7 Days Qty: 11 RF: 0 Continued thyroid (pork) [[place] Thyroid] 120 mg tablet 120 mg PO DAILY RF: 0 cholecalciferol (vitamin D3) [Vitamin D3] 125 mcg (5,000 unit) tablet 125 mcg PO DAILY RF: 0 alnbkkhn-egsnzwj-vanj-lutein Tablet 1 tab PO DAILY RF: 0 Discontinued minocycline 50 mg capsule 50 mg PO DAILY RF: 0 Referrals / Follow Up: Little Sullivan MD [Primary Care Provider] - Within 2 Weeks Disposition Disposition (needs filled in before D/C Order can be placed): Home, Self Care Charges/Coding Visit Charges Inpatient E&M: 99621 Disch Hosp
--- NOTE | 2021-07-11 11:06 | CASEMGMT ---
TC to [facility], spoke with Arlet, she is aware of O2 referral. Faxed referral at this time.
[2021-07-11 11:56] VITALS: BP 119/85; PULSE 89; RESP 16; TEMP 36.3; O2SAT 94
--- NOTE | 2021-07-11 13:52 | CASEMGMT ---
Social Work Note SW updated that pt is moving and wanted resources regarding moving. SW in to speak with pt regarding advanced directives and community resources. SW introduced self and role at [facility]. Pt is alert and orientated. Pt confirms she wishes to complete documents. Pt completed advanced directives. Original provided to RN to give to pt and copy on pt's chart. SW spoke with pt about moving. Pt confirms that she is looking for a new place but states she isn't trash and ain't moving to somewhere that isn't clean. SW spoke with pt about how she can decide where she wants to live and that is her choice. Pt states there's a dumpster outside my apartment and I will just throw everything in there. SW offered to provider pt with moving companies and pt denied. Pt states I ain't spending money on that. SW spoke with pt about [employer], [employer], and [employer] and provided pt with these resources. Pt then rambled on about her little sister thinks she is better than pt. SW offered support to pt. Pt denied additional needs or concerns at this time. Kell Trinidad [employer], ASSOCIATE CHEMIST
--- NOTE | 2021-07-11 14:05 | PHA.DC.MR ---
Pharmacy Service has performed discharge medication reconciliation for this patient. The patient's discharge medication list was reviewed for discrepancies and discrepancies were resolved. Attempted to call patient and residential treatment counselor regarding dexamethasone but did not get an answer. Home Medications thyroid (pork) 120 mg tablet 120 mg PO DAILY 01/19/19 cholecalciferol (vitamin D3) 125 mcg (5,000 unit) tablet 125 mcg PO DAILY 05/10/20 sinadpsi-lkqmfep-ttam-lutein 1 tab PO DAILY 07/09/21 acetaminophen [Tylenol] 500 mg PO Q4H PRN PRN #0 tab 07/11/21 dexamethasone 6 mg PO DAILY 7 Days #11 tab 07/11/21
[2021-07-11 16:22] VITALS: O2SAT 93
--- NOTE | 2021-07-12 14:21 | CASEMGMT ---
KATY ALVES COVID Follow Up Phone Call: CHANTEE: 7 Strata: 2 Call Date: 07/12/21 Discharge Date: 07/11/21 Time of Call:1421 Duration:<1 min Admitting Dx:COVID PNA KATY AVLES attempted to complete follow up phone call after recent hospitalization for COVID pna. No answer and received unidentified voicemail, no message left.
== END 2021-07-11 15:55 | disposition home or self-care (01) | DRG 177 ==
LOC: ED 15:34 → MS3 16:28
PROVIDERS: Emergency Provider Emergency Medicine; PCP Family Medicine
DX: U07.1 COVID-19 (principal); J12.82 Pneumonia due to coronavirus disease 2019; J44.0 Chronic obstructive pulmonary disease with (acute) lower respiratory infection; R09.02 Hypoxemia; E03.9 Hypothyroidism, unspecified; K21.9 Gastro-esophageal reflux disease without esophagitis; I10 Essential (primary) hypertension; E87.6 Hypokalemia; M81.0 Age-related osteoporosis without current pathological fracture; Z28.3 Underimmunization status; Z87.891 Personal history of nicotine dependence; Z87.01 Personal history of pneumonia (recurrent); Z80.3 Family history of malignant neoplasm of breast; Z82.49 Family history of ischemic heart disease and other diseases of the circulatory system; Z85.118 Personal history of other malignant neoplasm of bronchus and lung; Z85.3 Personal history of malignant neoplasm of breast; Z85.43 Personal history of malignant neoplasm of ovary; Z85.820 Personal history of malignant melanoma of skin; Z90.710 Acquired absence of both cervix and uterus; Z79.890 Hormone replacement therapy
CPT/HCPCS: 36415; 71045; 71275; 80048; 80053; 83605; 83735; 84484; 85025; 85379; 87040; 87426; 93005; 99285; J7030; Q9967; A4216

== ENCOUNTER 2021-07-14 17:24 | Inpatient (IN) | payer MEDICARE, SELFPAY ==
[2021-07-14] VITALS (13 sets, daily range): BP systolic 159–181; BP diastolic 90–126; PULSE 89–99; RESP 24–29; TEMP 36.7–37.2; O2SAT 78–99; BMI 33.0; BMI 34.4
--- NOTE | 2021-07-14 18:16 | RAD_ITS ---
EXAM: XR CHEST, 1 VIEW CLINICAL INDICATION: covid 19 covid 19 TECHNIQUE: Frontal view of the chest. This report was created using [employer] report generation technology. COMPARISON: Prior comparison exam 07/09/2021 FINDINGS: LUNGS AND PLEURAL SPACES: Bibasilar reticular opacities and subtle alveolar opacities, left greater than right likely representing developing pneumonia, new compared to prior exam. No dense consolidation. No nodular mass. No pleural effusion. No pneumothorax. HEART: Unremarkable. Cardiac silhouette not enlarged. MEDIASTINUM: Central airways and mediastinal contour are unremarkable. BONES/JOINTS: Unremarkable. SOFT TISSUES: Unremarkable. RAD/Chest 1 View (Portable) IMPRESSION: Developing reticular and alveolar opacities likely representing pneumonia. Electronically Signed: Chato Vazquez DO at 18:44 EDT Tel , Service support ,
--- NOTE | 2021-07-14 18:47 | CT_ITS ---
STUDY: CTA CHEST REASON FOR EXAM: Female, 70 years old. pulmonary embolism RADIATION DOSAGE (If Supplied By Facility): CTDIvol = ( 13.52 ) mGy, DLP = ( 504.23 ) mGycm TECHNIQUE: The examination was performed with the intravenous administration of IV 75mL Isovue-370. Post-processing of the angiographic images was performed, with multiplanar reformation and 3D reconstruction. Individualized dose optimization techniques were used for this CT. COMPARISON: 07/09/2021 CT chest. FINDINGS: Overall quality of the exam is decreased due to some motion at the level of the right and left pulmonary arteries. Exam is still felt to be diagnostic. Normal enhancement of the main pulmonary artery and right and left pulmonary arteries. Normal enhancement of the bilateral peripheral pulmonary arteries. There is no demonstrated pulmonary embolism. Normal thoracic aorta and visualized great vessels. There is no demonstrated aortic dissection. Normal heart and pericardium. Normal mediastinum. Normal hilar regions. Normal visualized trachea and bronchi. The lungs are well expanded. Interval increased confluence of patchy alveolar opacities seen throughout the lungs. No pleural effusion. Normal pleura. Normal chest wall structures. Normal osseous structures. There is significant decreased density of the liver consistent with hepatic steatosis. There is a sliding hiatal hernia. CT/CTA Chest W/WO Contrast IMPRESSION: 1. No pulmonary motion. 2. Interval worsening of alveolar opacities scattered throughout the lungs highly suspicious for COVID pneumonia. 3. Hepatic steatosis. 4. Sliding hiatal hernia. Electronically Signed: Chato Vazquez DO at 20:30 EDT Tel , Service support ,
[2021-07-14 19:29] LABS: Basophil# 0.03 X10^3/uL; Basophil% 0.3 % (0-1); Eosinophil# 0.07 X10^3/uL; Eosinophils% 0.7 % (0-5); Hematocrit 44.7 % (37-47); Hemoglobin 14.7 g/dL (12.0-15.0); Lymphocyte % 8.5 % (19-41); Mean Corp Hgb Conc 32.9 g/dL (32-36); Mean Corpuscular Hgb 30.4 pg (27.0-32.0); Mean Corpuscular Volume 92.4 fL (81-99); Mean Platelet Vol. 9.6 fl (6.2-12.0); Monocyte# 0.33 X10^3/uL; Monocyte% 3.1 % (0-10); NRBC Flagged by Analyzer 0 % (0-5); Neutrophil # 9.02 X10^3/uL (2.7-7.7); Neutrophil % 84.8 % (47-70); Platelet Count 414 K/mm3 (150-450); RBC Distribution Width CV 12.1 % (11.6-14.6); RBC Distribution Width SD 41.6 fl (35.1-43.9); Red Blood Count 4.84 M/mm3 (4.2-5.4); White Blood Count 10.6 K/mm3 (4.4-11.0)
[2021-07-14 19:45] LABS: Lactic Acid 1.5 mmol/L (0.4-1.9)
[2021-07-14 19:48] LABS: ALB/GLOB Ratio 0.8 RATIO (0.9-2.4); AST(SGOT) 85 U/L (15-37); Alanine Aminotransfer ALT/SGPT 90 U/L (13-56); Albumin, Serum 3.6 g/dL (3.2-5.0); Alkaline Phosphatase 55 U/L (45-117); Anion Gap 9 (5-15); BUN 19 mg/dL (7-18); BUN/Creat Ratio 24.4 RATIO (10-20); Chloride 96 mmol/L (98-107); Creatinine, Serum 0.78 mg/dL (0.55-1.02); EST Glomerular Filtration Rate 77 mL/min (>60); Est Glom Filt Rate - Afr Amer 94 mL/min (>60); Estimated Creatinine Clearance 40.81 ml/min; Globulin 4.4 g/dL (2.2-4.2); Glucose 96 mg/dL (74-106); Potassium 3.3 mmol/L (3.5-5.1); Sodium Level 134 mmol/L (136-145); Troponin-I HS 9 pg/mL (3.0-54.0)
--- NOTE | 2021-07-14 20:04 | EX.ED.DYSGE1 ---
HPI History of Present Illness Chief Complaint: Shortness of Breath Informant: patient Narrative Narrative: 70-year-old female presenting to the emergency department with dyspnea. Patient was admitted on the 16 through the of this month with Covid 19. She was discharged home on home oxygen. At the time of admission she endorsed about 2 weeks of symptoms. Patient returns tonight with worsening shortness of breath. Patient at the time of discharge from the hospital was inquiring about her pending eviction which unfortunately we were unable to assist her with. She states that she is waiting for her daughter to come from [place]. The patient is a extremely poor historian [facility] Medical History Arthritis Bladder leak Breast lump in female Cataracts, bilateral Chronic bronchitis COPD (chronic obstructive pulmonary disease) Former smoker GERD (gastroesophageal reflux disease) High cholesterol History of pneumonia Hormone deficiency HTN (hypertension) Hypoglycemia Hypothyroid IBS (irritable bowel syndrome) Melanoma in situ of left lower leg Migraines Osteoarthritis Osteoporosis PCOS (polycystic ovarian syndrome) Skin cancer Vision problems Home Medications thyroid (pork) 120 mg tablet 120 mg PO DAILY 01/19/19 [History Last Taken 2 Weeks Ago ~06/25/21] cholecalciferol (vitamin D3) 125 mcg (5,000 unit) tablet 125 mcg PO DAILY 05/10/20 [History Last Taken 2 Weeks Ago ~06/25/21] ohokuwzo-oehsfej-swic-lutein 1 tab PO DAILY 07/09/21 [History Last Taken 2 Weeks Ago ~06/25/21] acetaminophen [Tylenol] 500 mg PO Q4H PRN PRN #0 tab 07/11/21 [Rx Last Taken Unknown] dexamethasone 6 mg PO DAILY 7 Days #11 tab 07/11/21 [Rx Last Taken Unknown] Allergy/AdvReac Type Severity Reaction Status Date / Time No Known Allergies Allergy Verified 07/14/21 17:24 Family History Mother Cancer lung Arthritis Lung cancer Father Hypertension Arthritis Other Breast cancer Family history of breast cancer High cholesterol Ovarian cancer Thyroid disorder Surgical History History of melanoma excision LOWER DENTAL IMPLANTS S/P abdominoplasty S/P bunionectomy S/P hysterectomy s/p kyphoblasty S/P nasal septoplasty s/p right ovarian cystectomy Status post hernia repair Social History Smoking Status: Former smoker alcohol intake: current substance use type: does not use additional social history: DOES NOT USE ASPIRIN DOES NOT USE IBUPROFEN ROS ROS ED Constitutional Constitutional ED: Denies chills or weight loss Eyes Eyes: Denies change in vision or diplopia ENT ENT ED: Denies ear pain, rhinorrhea or sore throat Cardiovascular Cardiovascular: Denies chest pain, orthopnea, palpitations or racing heartbeat Respiratory/Chest Respiratory/Chest: Reports cough and dyspnea; Denies orthopnea Gastrointestinal Gastrointestinal: Denies abdominal pain, diarrhea, nausea or vomiting Genitourinary Genitourinary ED: Denies dysuria, hematuria or urinary frequency Musculoskeletal Musculoskeletal: Denies arthralgias or myalgias Integumentary Denies abscess or rash Neurologic Neurologic: Denies headache(s) or weakness Psychiatric Psychiatric: Denies anxiety, depression, suicidal ideation or suicidal thoughts Endocrine Endocrinology: Denies polydipsia, polyphagia or polyuria Allergic/Immunologic Allergic/Immunologic ED: Denies mouth swelling, tongue swelling or urticaria EXAM Physical Exam Const Vital Signs: 07/14/21 17:26 07/14/21 17:35 07/14/21 17:37 Temperature 98.7 F 98.7 F Temperature Source Oral Oral Pulse Rate 97 97 Respiratory Rate 24 H 24 H Respiratory Effort Short of Breath Respiratory Depth Normal Respiratory Pattern Tachypnea Blood Pressure 180/113 H 180/113 H Blood Pressure Mean 135 135 Pulse Ox 83 91 Oxygen Delivery Method Room Air Nasal Cannula Nasal Cannula Oxygen Flow Rate (L/min) 4 4 07/14/21 18:30 07/14/21 19:16 07/14/21 20:00 Temperature Temperature Source Pulse Rate 99 98 Respiratory Rate 27 H 26 H Respiratory Effort Respiratory Depth Respiratory Pattern Blood Pressure 175/100 H 181/95 H Blood Pressure Mean 125 123 Pulse Ox 90 95 78 Oxygen Delivery Method Nasal Cannula Nasal Cannula Nasal Cannula Oxygen Flow Rate (L/min) 5 5 6 07/14/21 20:04 07/14/21 20:33 07/14/21 20:46 Temperature 98.6 F Temperature Source Axillary Pulse Rate 94 95 Respiratory Rate 27 H 26 H Respiratory Effort Respiratory Depth Respiratory Pattern Blood Pressure 159/126 H 169/91 H Blood Pressure Mean 137 117 Pulse Ox 94 89 91 Oxygen Delivery Method Non-Rebreather Nasal Cannula Non-Rebreather Oxygen Flow Rate (L/min) 15 13 15 Positive well nourished, well developed and obese General Appearance ED: well developed Nutritional Appearance: obese HEENT Reports normocephalic, head/scalp atraumatic and moist mucous membranes Eyes PERRL and EOMs intact bilaterally Neck no lymphadenopathy, supple and no JVD Resp normal respiratory effort and clear to auscultation bilaterally Cardio regular rate, regular rhythm and no murmurs GI normal to inspection, nondistended, normoactive bowel sounds and non-tender Palpation: soft Back/Spine no CVA tenderness and normal ROM Extremity normal to inspection General Extremety ED: Negative for edema General Extremity: Negative for edema Neuro oriented x3 and CN's II-XII intact bilaterally Sensorium / Orientation: alert Motor Exam: strength 5/5 throughout Psych mental status grossly normal Mood & Affect: Negative for depressed or tearful Skin no rashes or lesions noted and no wounds MDM MDM MDM Narrative Medical decision making narrative: Patient's oxygen requirements have been going up. She was doing okay on 4 L and then had desaturations down into the 70s with good waveform. Patient eventually was titrated up to a nonrebreather as we got high flow nasal cannula ready. Basic blood work obtained essentially negative. White count 10.6. The patient underwent CTA which does not demonstrate any pulmonary embolism. This does appear worse on her CT on 07/09. Plan will be for admission Lab Data Labs: Laboratory Results - last 24 hr 07/14/21 07/14/21 07/14/21 19:00 19:00 19:00 WBC 10.6 RBC 4.84 Hgb 14.7 Hct 44.7 MCV 92.4 MCH 30.4 MCHC 32.9 RDW Std Deviation 41.6 RDW Coeff of Amy 12.1 Plt Count 414 MPV 9.6 Immature Gran % (Auto) 2.600 H Neut % (Auto) 84.8 H Lymph % (Auto) 8.5 L Ruther[place] % (Auto) 3.1 Eos % (Auto) 0.7 Baso % (Auto) 0.3 Absolute Neuts (auto) 9.0 H Absolute Lymphs (auto) 0.90 Nucleated RBC % 0 Sodium 134 L Potassium 3.3 L Chloride 96 L Carbon Dioxide 29.0 Anion Gap 9 BUN 19 H Creatinine 0.78 Estim Creat Clear Calc 40.81 Est GFR (MDRD) Af Amer 94 Est GFR (MDRD) Non-Af 77 BUN/Creatinine Ratio 24.4 H Glucose 96 Lactic Acid 1.5 Calcium 9.0 Total Bilirubin 0.60 AST 85 H ALT 90 H Alkaline Phosphatase 55 Troponin I High Sens 9 Total Protein 8.0 Albumin 3.6 Globulin 4.4 H Albumin/Globulin Ratio 0.8 L Radiography Diagnostic Testing: Radiology Impression Chest X-Ray 07/14/21 18:16 IMPRESSION: Developing reticular and alveolar opacities likely representing pneumonia. Electronically Signed: Chato Vazquez DO at 18:44 EDT Tel , Service support , Chest CTA 07/14/21 18:47 IMPRESSION: 1. No pulmonary motion. 2. Interval worsening of alveolar opacities scattered throughout the lungs highly suspicious for COVID pneumonia. 3. Hepatic steatosis. 4. Sliding hiatal hernia. Electronically Signed: Chato Vazquez DO at 20:30 EDT Tel , Service support , Critical Care Time Critical Care Time: Yes Critical care time (excluding procedures): 30-74 minutes (30), Including time spent:, Discussing w/Patient &/or Family/Tool Planner, Discussing w/Consultants, Arranging Admission or Transfer and Performing Direct Patient Care at Bedside Discharge Plan Triage Chief Complaint: Shortness of Breath ED Provider: Jaycob Kellogg Dx/Rx/DC Orders Clinical Impression: COVID-19, Acute hypoxemic respiratory failure Primary Care Provider: Little Sullivan
[2021-07-14] MEDS: dexAMETHasone 4 MG Tablet 6 MG PO (20:28)
--- NOTE | 2021-07-14 21:18 | HP.PCM.HOS_ITS ---
HPI - General HPI Narrative HORTENCIA SERRANO, is a 70 F with a significant history of hypertension who presents to emergency department with persistent shortness of breath. Of note patient was admitted at a hospital on 07/09/2021. At that time it was documented that she has had Covid symptoms for 2 weeks. Patient was discharged home on 07/11/2021. She continues to report shortness of breath; muscle aches; chills; and productive cough. Also she has other social issues of her landlord/landlady trying to evict her. At the emergency department her oxygen saturation was low. She required high flow oxygen with mask. [facility] Medical History Arthritis Bladder leak Breast lump in female Cataracts, bilateral Chronic bronchitis COPD (chronic obstructive pulmonary disease) Former smoker GERD (gastroesophageal reflux disease) High cholesterol History of pneumonia Hormone deficiency HTN (hypertension) Hypoglycemia Hypothyroid IBS (irritable bowel syndrome) Melanoma in situ of left lower leg Migraines Osteoarthritis Osteoporosis PCOS (polycystic ovarian syndrome) Skin cancer Vision problems Home Medications thyroid (pork) 120 mg tablet 120 mg PO DAILY 01/19/19 [History Last Taken 2 Weeks Ago ~06/25/21] cholecalciferol (vitamin D3) 125 mcg (5,000 unit) tablet 125 mcg PO DAILY [History Last Taken 2 Weeks Ago ~06/25/21] sfakrteo-xaoiopm-bkby-lutein 1 tab PO DAILY 07/09/21 [History Last Taken 2 Weeks Ago ~06/25/21] acetaminophen [Tylenol] 500 mg PO Q4H PRN PRN #0 tab 07/11/21 [Rx Last Taken Unknown] dexamethasone 6 mg PO DAILY 7 Days #11 tab 07/11/21 [Rx Last Taken Unknown] Allergy/AdvReac Type Severity Reaction Status Date / Time No Known Allergies Allergy Verified 07/14/21 17:24 Family History Mother Cancer lung Arthritis Lung cancer Father Hypertension Arthritis Other Breast cancer Family history of breast cancer High cholesterol Ovarian cancer Thyroid disorder Surgical History History of melanoma excision LOWER DENTAL IMPLANTS S/P abdominoplasty S/P bunionectomy S/P hysterectomy s/p kyphoblasty S/P nasal septoplasty s/p right ovarian cystectomy Status post hernia repair Social History Smoking Status: Former smoker alcohol intake: current substance use type: does not use additional social history: DOES NOT USE ASPIRIN DOES NOT USE IBUPROFEN ROS ROS Narrative Constitutional: Denies fever. Reports chills. Reports fatigue . Eyes: Denies blurry vision, change in eye color, change in vision, discharge from eye(s), double vision, erythema, eye pain, loss of vision or other HEENT: Denies abnormal hearing, dysphagia, ear pain, epistaxis, headache(s), hearing loss, nasal congestion, nasal discharge, post nasal drip, sinus pressure, sore throat or other Cardiovascular: Denies chest pain. Denies orthopnea and paroxysmal nocturnal dyspnea Respiratory/Chest: Reports productive cough. Reports shortness of breath. Gastrointestinal: Reports abdominal pain. Denies coffee ground emesis, constipation, diarrhea, dyspepsia, hematemesis, hematochezia, loose stools, melena, nausea, vomiting or other Genitourinary: Denies burning urination, difficulty urinating, dysuria, hematuria, nocturia, urinary frequency, urinary hesitancy, urinary incontinence, urinary urgency or other Musculoskeletal: Reports myalgia. Denies arthralgias, back pain, joint pain, joint stiffness, joint swelling, neck pain or other Neurologic: Denies abnormal gait, abnormal speech, confusion, disequilibrium, dizziness, focal weakness, headache(s), numbness, paresthesias, seizure-like activity, seizures, syncope, tingling, tremor(s) or other Psychiatric: Denies anxiety, depression, homicidal ideation, suicidal ideation or other Endocrinology: Denies change in body appearance, cold intolerance, excessive sweating, heat intolerance, polydipsia, polyuria or other Hematologic/Lymphatic: Denies anemia, easy bleeding, easy bruising, lymphadenopathy or other Integumentary: Denies rashes. Allergic/Immunologic: Denies rhinitis, hives, eczema, asthma or other Vital Signs Vital Signs Vital Signs: 07/14/21 17:26 07/14/21 17:35 07/14/21 17:37 Temperature 98.7 F 98.7 F Temperature Source Oral Oral Pulse Rate 97 97 Respiratory Rate 24 H 24 H Respiratory Effort Short of Breath Respiratory Depth Normal Respiratory Pattern Tachypnea Blood Pressure 180/113 H 180/113 H Blood Pressure Mean 135 135 Pulse Ox 83 91 Oxygen Delivery Method Room Air Nasal Cannula Nasal Cannula Oxygen Flow Rate (L/min) 4 4 07/14/21 18:30 07/14/21 19:16 07/14/21 20:00 Temperature Temperature Source Pulse Rate 99 98 Respiratory Rate 27 H 26 H Respiratory Effort Respiratory Depth Respiratory Pattern Blood Pressure 175/100 H 181/95 H Blood Pressure Mean 125 123 Pulse Ox 90 95 78 Oxygen Delivery Method Nasal Cannula Nasal Cannula Nasal Cannula Oxygen Flow Rate (L/min) 5 5 6 07/14/21 20:04 07/14/21 20:33 07/14/21 20:46 Temperature 98.6 F Temperature Source Axillary Pulse Rate 94 95 Respiratory Rate 27 H 26 H Respiratory Effort Respiratory Depth Respiratory Pattern Blood Pressure 159/126 H 169/91 H Blood Pressure Mean 137 117 Pulse Ox 94 89 91 Oxygen Delivery Method Non-Rebreather Nasal Cannula Non-Rebreather Oxygen Flow Rate (L/min) 15 13 15 Weight Weight: 82 kg Body Mass Index (BMI) 33.0 Results Lab / Micro Data Result Diagrams: 07/14/21 19:00 07/14/21 19:00 Labs: Laboratory Results - last 24 hr 07/14/21 19:00: WBC 10.6, RBC 4.84, Hgb 14.7, Hct 44.7, MCV 92.4, MCH 30.4, MCHC 32.9, RDW Std Deviation 41.6, RDW Coeff of Amy 12.1, Plt Count 414, MPV 9.6, Immature Gran % (Auto) 2.600 H, Neut % (Auto) 84.8 H, Lymph % (Auto) 8.5 L, [place] % (Auto) 3.1, Eos % (Auto) 0.7, Baso % (Auto) 0.3, Absolute Neuts (auto) 9.0 H, Absolute Lymphs (auto) 0.90, Nucleated RBC % 0 07/14/21 19:00: Sodium 134 L, Potassium 3.3 L, Chloride 96 L, Carbon Dioxide 29.0, Anion Gap 9, BUN 19 H, Creatinine 0.78, Estim Creat Clear Calc 40.81, Est GFR (MDRD) Af Amer 94, Est GFR (MDRD) Non-Af 77, BUN/Creatinine Ratio 24.4 H, Glucose 96, Calcium 9.0, Total Bilirubin 0.60, AST 85 H, ALT 90 H, Alkaline Phosphatase 55, Troponin I High Sens 9, Total Protein 8.0, Albumin 3.6, Globulin 4.4 H, Albumin/Globulin Ratio 0.8 L 07/14/21 19:00: Lactic Acid 1.5 Radiology Impression Chest X-Ray 07/14/21 18:16 IMPRESSION: Developing reticular and alveolar opacities likely representing pneumonia. Electronically Signed: Chato Vazquez DO at 18:44 EDT Tel , Service support , Chest CTA 07/14/21 18:47 IMPRESSION: 1. No pulmonary motion. 2. Interval worsening of alveolar opacities scattered throughout the lungs highly suspicious for COVID pneumonia. 3. Hepatic steatosis. 4. Sliding hiatal hernia. Electronically Signed: Chato Vazquez DO at 20:30 EDT Tel , Service support , Assessment & Plan Assessment/Plan (1) Acute hypoxemic respiratory failure: (2) COVID-19: PLAN: Acute hypoxemic respiratory failure secondary to SARS- COV 2 Required mask with high flow oxygen at emergency department. Will admit to intensive care unit. Received Decadron at emergency department. Decadron continued. Outside window of remdesivir. Check procalcitonin. Impression of chest x-ray by radiologist: Developing reticular and alveolar opacities likely representing pneumonia. Actual chest x-ray was independently reviewed and agree radiologist interpretation. Impression of chest CT by radiology:1. No pulmonary motion. 2. Interval worsening of alveolar opacities scattered throughout the lungs highly suspicious for COVID pneumonia. 3. Hepatic steatosis. 4. Sliding hiatal hernia. Tylenol and Mucinex ordered. Hypokalemia Total of 3.3. Replace. Trend BMP. Hypothyroidism [place] Thyroid continued. DVT prophylaxis: Subcutaneous Lovenox Charges/Coding Visit Charges Inpatient E&M: 05772 Init Hosp L3
--- NOTE | 2021-07-14 22:20 | NURSING ---
admitted from ED positive for covid, discharged on from [facility] with home oxygen, now more SOB, aches all over. currently on 100% nonrebreather with pulse ox 99%. MOnitor sinus to sinus tach. lungs with coarse rhonchi, productive cough of thick clear sputum.
[2021-07-14] MEDS: Potassium Chloride Oral Tablet 20 MEQ 60 MEQ PO (23:42)
[2021-07-14] MEDS: Enoxaparin 30 MG/0.3 ML Syringe SC (23:42)
[2021-07-14] MEDS: Acetaminophen 325 MG Tablet 650 MG PO (23:43)
[2021-07-14] MEDS: guaiFENesin 1,200 MG Tablet 1200 MG PO (23:43)
[2021-07-15] VITALS (41 sets, daily range): BP systolic 92–169; BP diastolic 63–124; PULSE 67–95; RESP 12–26; TEMP 36.2–36.9; O2SAT 85–99
--- NOTE | 2021-07-15 00:12 | NURSING ---
weaned to 15L high flow oxygen, pulse ox remains 95-98%. pt tolerated turning and use of bedpan without desaturation
[2021-07-15 01:10] LABS: Procalcitonin 0.06 ng/mL (0.00-0.09)
--- NOTE | 2021-07-15 01:28 | NURSING ---
patient turned to use bed hernandez, no desaturations unless oxygen pulled out of nose. decreased of to 15 L, pulse ox 98%
--- NOTE | 2021-07-15 04:22 | NURSING ---
pt up to BSC to void, bath completed, pulse ox dip to 88% on 10 L NC, recovered within 5 minutes, o2 remains at 10 L/NC.
--- NOTE | 2021-07-15 04:26 | PCS.PANDOC ---
PANDEMIC DOCUMENTATION INITIATED: Date: 07/09/2021 Time: 190
[2021-07-15 04:28] LABS: Absolute Lymphocyte Count 0.49 X10^3/uL (0.83-4.51); Absolute Neutrophil Count 8.1 X10^3/uL (2.0-7.7); Basophil# 0.03 X10^3/uL; Basophil% 0.3 % (0-1); Eosinophil# 0.01 X10^3/uL; Eosinophils% 0.1 % (0-5); Hematocrit 43.2 % (37-47); Hemoglobin 14.3 g/dL (12.0-15.0); Lymphocyte # 0.49 X10^3/ul (0.83-4.51); Lymphocyte % 5.4 % (19-41); Mean Corp Hgb Conc 33.1 g/dL (32-36); Mean Corpuscular Hgb 30.4 pg (27.0-32.0); Mean Corpuscular Volume 91.9 fL (81-99); Mean Platelet Vol. 9.6 fl (6.2-12.0); Monocyte# 0.19 X10^3/uL; Monocyte% 2.1 % (0-10); NRBC Flagged by Analyzer 0 % (0-5); Neutrophil # 8.13 X10^3/uL (2.7-7.7); Neutrophil % 89.1 % (47-70); POSITIVE DIFFERENTIAL YES; Platelet Count 388 K/mm3 (150-450); RBC Distribution Width CV 12.1 % (11.6-14.6); White Blood Count 9.1 K/mm3 (4.4-11.0)
[2021-07-15] MEDS: 0.9% Saline Lock 10 ML Syringe IV ×2 (04:34→09:16)
[2021-07-15 04:43] LABS: Differential Indicated SCAN CRITERIA MET
[2021-07-15 04:56] LABS: ALB/GLOB Ratio 0.7 RATIO (0.9-2.4); AST(SGOT) 62 U/L (15-37); Alanine Aminotransfer ALT/SGPT 76 U/L (13-56); Albumin, Serum 3.2 g/dL (3.2-5.0); Alkaline Phosphatase 52 U/L (45-117); Anion Gap 6 (5-15); BUN 15 mg/dL (7-18); BUN/Creat Ratio 20.2 RATIO (10-20); Calcium,Total 8.6 mg/dL (8.5-10.1); Chloride 99 mmol/L (98-107); Creatinine, Serum 0.74 mg/dL (0.55-1.02); EST Glomerular Filtration Rate 82 mL/min (>60); Est Glom Filt Rate - Afr Amer 99 mL/min (>60); Estimated Creatinine Clearance 40.81 ml/min; Globulin 4.3 g/dL (2.2-4.2); Glucose 144 mg/dL (74-106); Protein, Total 7.5 g/dL (6.4-8.2); Sodium Level 132 mmol/L (136-145)
[2021-07-15 05:34] LABS: Differential Comment SCANNED
--- NOTE | 2021-07-15 08:20 | EX.PCM.CONCC ---
Assessment & Plan Assessment/Plan (1) Acute hypoxemic respiratory failure: (2) COVID-19: (3) Flash pulmonary edema: (4) Hypertensive emergency: PLAN: RECOMMENDATIONS: 1. Aggressive control of blood pressure 2. Diuretics as tolerated 3. Wean oxygen as tolerated 4. Okay to leave the intensive care unit to [facility] from my perspective 5. Possible outpatient sleep study IMPRESSIONS: 1. Acute hypoxic respiratory failure Anticipate multifactorial etiology. Patient does have a recent COVID-19 diagnosis requiring 2 L on discharge. However, patient was significantly hypertensive on presentation with increasing infiltrates. Patient is rapidly improved with control of blood pressure. Clinical suspicion for hypertensive emergency leading to acute hypoxic respiratory failure in the setting of COVID-19. Patient is not on antihypertensives at baseline, but does have increased anxiety associated with possible eviction. Continue to wean supplemental oxygen as tolerated. Likely okay to leave the intensive care unit. Patient's procalcitonin is minimal, so bacterial superinfection is unlikely. Reasonable to complete an additional 7 days of dexamethasone to complete therapy for COVID-19. 2. Hypertensive emergency it is difficult to tell whether patients in elevated blood pressures are related to steroids, anxiety or uncontrolled hypertension. Patient may benefit from a beta-panda at baseline. Patient may benefit from an echocardiogram as an outpatient. Decadron may be adding to elevated blood pressures. 3. Obesity/advanced age/anxiety/osteopenia/hypothyroidism complicates care, management, recovery and prognosis. Okay to continue with baseline medications from my perspective. Patient would benefit from weight loss. HPI Consult Data Date of Consult: 07/15/21 HPI Narrative HPI Narrative: HORTENCIA SERRANO is a 70 F, with past medical history listed below, who presents to [facility] on 07/14/2021 secondary to progressive shortness of breath. Patient was recently hospitalized from July 09 through the with COVID-19. Patient was discharged on 2 L nasal cannula and has had symptoms for approximately 2 weeks. On the day of presentation, patient had reported significant worsening in shortness of breath. Patient is not able to provide much additional history, but reportedly was having issues with possible pending eviction. On presentation to the ER, patient was afebrile at 98.7 ?F, but significantly hypertensive at 180/113. Patient was saturating 83% on room air and required up to a nonrebreather to maintain saturations. Laboratory work-up was relatively unremarkable. Patient did have a decreased potassium, sodium and chloride. Liver function studies were slightly elevated, but lactate and renal function was within normal limits. Chest x-ray showed slightly worsening alveolar opacities and a CTA of the chest showed no PE with worsening of groundglass opacities. Patient did have hepatic steatosis. Since being in the intensive care unit, patient's oxygen requirements have significantly improved. Patient states that she feels subjectively improved, but is still more short of breath than when she left the hospital. Patient is not able to provide much history on events between the and the . Patient has had some coughing. Patient is unable to tell me if she has been compliant with her baseline medications. Patient does have a history of smoking, but has not required supplemental oxygen prior to her COVID-19 diagnosis. Unable to obtain a full review of systems. [facility] Medical History (Updated 07/15/21 @ 08:[address] [place] MD) Arthritis Bladder leak Breast lump in female Cataracts, bilateral Chronic bronchitis COPD (chronic obstructive pulmonary disease) Former smoker GERD (gastroesophageal reflux disease) High cholesterol History of pneumonia Hormone deficiency HTN (hypertension) Hypoglycemia Hypothyroid IBS (irritable bowel syndrome) Melanoma in situ of left lower leg Migraines Osteoarthritis Osteoporosis PCOS (polycystic ovarian syndrome) Skin cancer Vision problems Home Medications thyroid (pork) 120 mg tablet 120 mg PO DAILY 01/19/19 [History Last Taken 2 Weeks Ago ~06/25/21] cholecalciferol (vitamin D3) 125 mcg (5,000 unit) tablet 125 mcg PO DAILY 05/10/20 [History Last Taken 2 Weeks Ago ~06/25/21] ubbhyplz-ftexkke-yjan-lutein 1 tab PO DAILY 07/09/21 [History Last Taken 2 Weeks Ago ~06/25/21] acetaminophen [Tylenol] 500 mg PO Q4H PRN PRN #0 tab 07/11/21 [Rx Last Taken Unknown] dexamethasone 6 mg PO DAILY 7 Days #11 tab 07/11/21 [Rx Last Taken Unknown] Allergy/AdvReac Type Severity Reaction Status Date / Time No Known Allergies Allergy Verified 07/14/21 17:24 Family History Mother Cancer lung Arthritis Lung cancer Father Hypertension Arthritis Other Breast cancer Family history of breast cancer High cholesterol Ovarian cancer Thyroid disorder Surgical History History of melanoma excision LOWER DENTAL IMPLANTS S/P abdominoplasty S/P bunionectomy S/P hysterectomy s/p kyphoblasty S/P nasal septoplasty s/p right ovarian cystectomy Status post hernia repair Social History Smoking Status: Former smoker alcohol intake: current substance use type: does not use additional social history: DOES NOT USE ASPIRIN DOES NOT USE IBUPROFEN ROS Review of Systems ROS Unobtainable: due to mental condition Physical Exam Const no apparent distress Orientation / Consciousness: awake and oriented to person Nutritional Appearance: obese Neck No nuchal rigidity, no lymphadenopathy and supple Chest inspection of chest normal Chest: symmetrical chest wall rise Resp normal respiratory effort, no retractions, no use of accessory muscles and clear to auscultation bilaterally Cardio regular rate, regular rhythm, S1 normal heart sound and S2 normal heart sound GI normal to inspection, nondistended, normoactive bowel sounds, non-tender and non-distended Extremity normal to inspection and no clubbing, cyanosis or edema Skin no rashes or lesions noted Neuro CN's II-XII intact bilaterally, moves all extremities and no focal motor deficits Psych Mood & Affect: anxious Attention / Concentration: attention grossly impaired Lab / Micro Data Result Diagrams: 07/15/21 04:05 07/15/21 04:05 Labs: Laboratory Results - last 24 hr 07/14/21 19:00: WBC 10.6, RBC 4.84, Hgb 14.7, Hct 44.7, MCV 92.4, MCH 30.4, MCHC 32.9, RDW Std Deviation 41.6, RDW Coeff of Amy 12.1, Plt Count 414, MPV 9.6, Immature Gran % (Auto) 2.600 H, Neut % (Auto) 84.8 H, Lymph % (Auto) 8.5 L, [place] % (Auto) 3.1, Eos % (Auto) 0.7, Baso % (Auto) 0.3, Absolute Neuts (auto) 9.0 H, Absolute Lymphs (auto) 0.90, Nucleated RBC % 0 07/14/21 19:00: Sodium 134 L, Potassium 3.3 L, Chloride 96 L, Carbon Dioxide 29.0, Anion Gap 9, BUN 19 H, Creatinine 0.78, Estim Creat Clear Calc 40.81, Est GFR (MDRD) Af Amer 94, Est GFR (MDRD) Non-Af 77, BUN/Creatinine Ratio 24.4 H, Glucose 96, Calcium 9.0, Total Bilirubin 0.60, AST 85 H, ALT 90 H, Alkaline Phosphatase 55, Troponin I High Sens 9, Total Protein 8.0, Albumin 3.6, Globulin 4.4 H, Albumin/Globulin Ratio 0.8 L 07/14/21 19:00: Lactic Acid 1.5 07/14/21 23:40: Procalcitonin 0.06 07/15/21 04:05: WBC 9.1, RBC 4.70, Hgb 14.3, Hct 43.2, MCV 91.9, MCH 30.4, MCHC 33.1, RDW Std Deviation 41.0, RDW Coeff of Amy 12.1, Plt Count 388, MPV 9.6, Immature Gran % (Auto) 3.000 H, Neut % (Auto) 89.1 H, Lymph % (Auto) 5.4 L, [place] % (Auto) 2.1, Eos % (Auto) 0.1, Baso % (Auto) 0.3, Absolute Neuts (auto) 8.1 H, Absolute Lymphs (auto) 0.49 L, Nucleated RBC % 0, Differential Comment SCANNED 07/15/21 04:05: Sodium 132 L, Potassium 5.0, Chloride 99, Carbon Dioxide 27.0, Anion Gap 6, BUN 15, Creatinine 0.74, Estim Creat Clear Calc 40.81, Est GFR (MDRD) Af Amer 99, Est GFR (MDRD) Non-Af 82, BUN/Creatinine Ratio 20.2 H, Glucose 144 H, Calcium 8.6, Total Bilirubin 0.70, AST 62 H, ALT 76 H, Alkaline Phosphatase 52, Total Protein 7.5, Albumin 3.2, Globulin 4.3 H, Albumin/Globulin Ratio 0.7 L Radiology Impression Chest X-Ray 07/14/21 18:16 IMPRESSION: Developing reticular and alveolar opacities likely representing pneumonia. Electronically Signed: Chato Vazquez DO at 18:44 EDT Tel , Service support , Chest CTA 07/14/21 18:47 IMPRESSION: 1. No pulmonary motion. 2. Interval worsening of alveolar opacities scattered throughout the lungs highly suspicious for COVID pneumonia. 3. Hepatic steatosis. 4. Sliding hiatal hernia. Electronically Signed: Chato Vazquez DO at 20:30 EDT Tel , Service support , Charges/Coding Visit Charges Inpatient E&M: 93437 Init Hosp L3
--- NOTE | 2021-07-15 08:24 | NURSING ---
Up to BS for void, sats dropped to low 70's on 6L n/c. Only came up to 85% at rest. O2 increased to 8L. Will cont to monitor
[2021-07-15] MEDS: Furosemide 20 MG/2 ML VIAL IV (09:16)
[2021-07-15] MEDS: guaiFENesin 1,200 MG Tablet 1200 MG PO ×2 (09:16→21:14)
[2021-07-15] MEDS: Multivitamins,Ther W-Minerals Tablet 1 TABLET PO (09:17)
[2021-07-15] MEDS: Thyroid 60 MG Tablet 120 MG PO (09:17)
[2021-07-15] MEDS: Enoxaparin 30 MG/0.3 ML Syringe SC ×2 (09:17→21:14)
[2021-07-15] MEDS: Cholecalciferol (VIT D3) 25 MCG TABLET (1,000 UNITS) 125 MCG PO (09:17)
[2021-07-15] MEDS: dexAMETHasone 2 MG TABLET 6 MG PO (09:17)
[2021-07-15] MEDS: Labetalol (Prefilled) 20 MG/4 ML 10 MG IV (09:21)
--- NOTE | 2021-07-15 09:32 | PN.HOSP_ITS ---
Subjective Subjective Patient was seen and examined. She complains of feeling tired. She is currently on 12 L of oxygen. Her sats are in the low 90s. Objective Data Objective Data Vital Signs: Vital Signs Temp Pulse Resp BP Pulse Ox 97.9 F 67 17 145/91 H 88 07/15/21 08:00 07/15/21 08:00 07/15/21 08:00 07/15/21 08:00 07/15/21 08:30 Oxygen Flow Rate (L/min) 8 Oxygen Delivery Method Nasal Cannula Weight: 79.4 kg Body Mass Index (BMI) 34.4 Intake & Output: Intake and Output for Last 24 Hours 07/13/21 07/14/21 07/15/21 23:59 23:59 23:59 Intake Total 440 / 440 Output Total 745 / 745 Balance -305 / -305 Lab / Micro Data Result Diagrams: 07/15/21 04:05 07/15/21 04:05 Labs: Laboratory Results - last 24 hr 07/14/21 19:00: WBC 10.6, RBC 4.84, Hgb 14.7, Hct 44.7, MCV 92.4, MCH 30.4, MCHC 32.9, RDW Std Deviation 41.6, RDW Coeff of Amy 12.1, Plt Count 414, MPV 9.6, Immature Gran % (Auto) 2.600 H, Neut % (Auto) 84.8 H, Lymph % (Auto) 8.5 L, [place] % (Auto) 3.1, Eos % (Auto) 0.7, Baso % (Auto) 0.3, Absolute Neuts (auto) 9.0 H, Absolute Lymphs (auto) 0.90, Nucleated RBC % 0 07/14/21 19:00: Sodium 134 L, Potassium 3.3 L, Chloride 96 L, Carbon Dioxide 29.0, Anion Gap 9, BUN 19 H, Creatinine 0.78, Estim Creat Clear Calc 40.81, Est GFR (MDRD) Af Amer 94, Est GFR (MDRD) Non-Af 77, BUN/Creatinine Ratio 24.4 H, Glucose 96, Calcium 9.0, Total Bilirubin 0.60, AST 85 H, ALT 90 H, Alkaline Phosphatase 55, Troponin I High Sens 9, Total Protein 8.0, Albumin 3.6, Globulin 4.4 H, Albumin/Globulin Ratio 0.8 L 07/14/21 19:00: Lactic Acid 1.5 07/14/21 23:40: Procalcitonin 0.06 07/15/21 04:05: WBC 9.1, RBC 4.70, Hgb 14.3, Hct 43.2, MCV 91.9, MCH 30.4, MCHC 33.1, RDW Std Deviation 41.0, RDW Coeff of Amy 12.1, Plt Count 388, MPV 9.6, Immature Gran % (Auto) 3.000 H, Neut % (Auto) 89.1 H, Lymph % (Auto) 5.4 L, [place] % (Auto) 2.1, Eos % (Auto) 0.1, Baso % (Auto) 0.3, Absolute Neuts (auto) 8.1 H, Absolute Lymphs (auto) 0.49 L, Nucleated RBC % 0, Differential Comment SCANNED 07/15/21 04:05: Sodium 132 L, Potassium 5.0, Chloride 99, Carbon Dioxide 27.0, Anion Gap 6, BUN 15, Creatinine 0.74, Estim Creat Clear Calc 40.81, Est GFR (MDRD) Af Amer 99, Est GFR (MDRD) Non-Af 82, BUN/Creatinine Ratio 20.2 H, Glucose 144 H, Calcium 8.6, Total Bilirubin 0.70, AST 62 H, ALT 76 H, Alkaline Phosphatase 52, Total Protein 7.5, Albumin 3.2, Globulin 4.3 H, Albumin/Globulin Ratio 0.7 L Radiography Diagnostic Testing: Radiology Impression Chest X-Ray 07/14/21 18:16 IMPRESSION: Developing reticular and alveolar opacities likely representing pneumonia. Electronically Signed: Chato Vazquez DO at 18:44 EDT Tel , Service support , Chest CTA 07/14/21 18:47 IMPRESSION: 1. No pulmonary motion. 2. Interval worsening of alveolar opacities scattered throughout the lungs highly suspicious for COVID pneumonia. 3. Hepatic steatosis. 4. Sliding hiatal hernia. Electronically Signed: Chato Vazquez DO at 20:30 EDT Tel , Service support , Physical Exam Narrative Physical exam: General: Alert, Oriented x3, Cooperative, appears fatigued, on 12 L of oxygen HEENT: Atraumatic Oral: Dry mucosa Neck: Supple Lungs: Clear to auscultation Cardiovascular: HS I+II, regular, no murmurs Abdomen: Bowel Sounds Present, Soft, Non Tender Extremities: No edema Assessment & Plan Assessment/Plan (1) Acute hypoxemic respiratory failure: (2) COVID-19: PLAN: 1. Acute hypoxemic respiratory failure secondary to acute COVID-19 pneumonia Chest x-ray showed worsening pneumonia CTA of the chest was negative for acute PE Recently discharged from the hospital Patient is on dexamethasone po Continue on breathing treatment 2. Hypokalemia, replaced 3. Hypothyroidism, continue on armour thyroid Charges/Coding Visit Charges Inpatient E&M: 47275 [facility] Hosp L3
[2021-07-15] MEDS: Acetaminophen 325 MG Tablet 650 MG PO (13:10)
[2021-07-15] MEDS: Ipratropium/Albuterol Sulfate 3 ML AMPUL.NEB INHALATION (19:25)
[2021-07-16] VITALS (35 sets, daily range): BP systolic 97–146; BP diastolic 57–86; PULSE 65–94; RESP 12–23; TEMP 36.3–37.3; O2SAT 86–98
[2021-07-16 03:46] LABS: Hemoglobin 13.8 g/dL (12.0-15.0); Mean Corp Hgb Conc 32.9 g/dL (32-36); Mean Corpuscular Hgb 30.4 pg (27.0-32.0); Mean Corpuscular Volume 92.5 fL (81-99); Mean Platelet Vol. 9.4 fl (6.2-12.0); POSITIVE COUNT YES; POSITIVE MORPHOLOGY YES; Platelet Count 407 K/mm3 (150-450); RBC Distribution Width CV 12.2 % (11.6-14.6); RBC Distribution Width SD 41.5 fl (35.1-43.9); Red Blood Count 4.54 M/mm3 (4.2-5.4); White Blood Count 10.8 K/mm3 (4.4-11.0)
[2021-07-16 03:47] LABS: Differential Indicated MANUAL DIFF
[2021-07-16 04:05] LABS: ALB/GLOB Ratio 0.8 RATIO (0.9-2.4); AST(SGOT) 39 U/L (15-37); Alanine Aminotransfer ALT/SGPT 58 U/L (13-56); Alkaline Phosphatase 48 U/L (45-117); Anion Gap 9 (5-15); BUN 17 mg/dL (7-18); BUN/Creat Ratio 24.5 RATIO (10-20); Calcium,Total 8.7 mg/dL (8.5-10.1); Chloride 98 mmol/L (98-107); Creatinine, Serum 0.69 mg/dL (0.55-1.02); EST Glomerular Filtration Rate 88 mL/min (>60); Est Glom Filt Rate - Afr Amer 107 mL/min (>60); Estimated Creatinine Clearance 40.81 ml/min; Glucose 111 mg/dL (74-106); Sodium Level 134 mmol/L (136-145)
[2021-07-16 04:12] LABS: Eosinophil 1 % (0-5); Lymphocyte 12 % (19-41); Metamyelocyte 3 % (0-1); Monocyte 8 % (0-10); Neutrophil-Segmented 76 % (47-70); Total Cells Counted 100 (MANUAL DIFF)
[2021-07-16 04:15] LABS: Platelet Estimate ADEQUATE (ADEQ); Red Cell Morphology NORM C+C NORMAL (NORM C&C)
[2021-07-16 04:19] LABS: Neutrophil # 8.53 X10^3/uL (2.7-7.7)
[2021-07-16 04:20] LABS: Absolute Neutrophil Count 8.5 X10^3/uL (2.0-7.7)
--- NOTE | 2021-07-16 06:49 | PN.CC_ITS ---
Assessment & Plan Assessment/Plan (1) Acute hypoxemic respiratory failure: (2) COVID-19: PLAN: RECOMMENDATIONS: 1. Continue BiPAP as tolerated and wean FiO2 to maintain oxygen saturations at or above 90%. 2. Continue twice daily Lovenox therapy. 3. Continue Decadron to complete 10-day treatment course. 4. Mobilize patient as tolerated. 5. Utilize as needed diuretics to maintain euvolemic state. IMPRESSIONS: 1. Acute hypoxemic respiratory failure secondary to COVID-19 pneumonia In addition to Covid, the patient's presenting hypertension likely contributed to her clinical decompensation. Plan to continue supportive measures with noninvasive positive pressure ventilatory support as tolerated. Wean FiO2 to maintain oxygen saturations at or above 90%. Given the patient's duration of symptoms, she is not a candidate for remdesivir. She will be continued on Decadron again to complete a 10-day treatment course. Diuretics can be utilized as needed to maintain euvolemic state. 2. Obesity/advanced age/anxiety/hypothyroidism Complicates care, management, recovery and prognosis. Continue home medications as indicated. TIME: 34 minutes of critical care time, independent of procedures, was spent addressing the patient's acute hypoxemic respiratory failure secondary to COVID- 19 pneumonia, review of all data and collaboration with care team. ([id number]) Subjective Subjective The patient was seen and examined at the bedside this morning. Events from the last 24 hours have been reviewed. The patient is currently afebrile, hemodynamically stable and maintaining appropriate oxygen saturations on BiPAP with an FiO2 requirement of 70%. The patient remains on Decadron. She is overall net -700 mL for the hospital admission. Objective Data Objective Data The patient's most recent lab work, culture data and imaging studies have all been personally reviewed. Rapid coronavirus antigen testing was positive on [place] 16. Vital Signs: Vital Signs Temp Pulse Resp BP Pulse Ox 99.1 F 67 16 133/86 H 96 07/16/21 04:00 07/16/21 06:00 07/16/21 06:00 07/16/21 06:00 07/16/21 06:00 Oxygen Flow Rate (L/min) 12 Oxygen Delivery Method Bi-pap Weight: 79.4 kg Body Mass Index (BMI) 34.4 Intake & Output: Intake and Output for Last 24 Hours 07/14/21 07/15/2107/16/21 23:59 23:59 23:59 Intake Total 920 / 928 Output Total 1495 / 1495 Balance -575 / -567 Lab / Micro Data Attestation: I reviewed the patient's lab results. Result Diagrams: 07/16/21 03:35 07/16/21 03:35 Labs: Laboratory Results - last 24 hr 07/16/21 03:35: WBC 10.8, RBC 4.54, Hgb 13.8, Hct 42.0, MCV 92.5, MCH 30.4, MCHC 32.9, RDW Std Deviation 41.5, RDW Coeff of Amy 12.2, Plt Count 407, MPV 9.4, Neut % (Auto) Not Reportable, Absolute Neuts (auto) 8.5 H, Absolute Lymphs (auto) 1.30, Total Counted 100, Neutrophils % (Manual) 76 H, Lymphocytes % (Manual) 12 L, Monocytes % (Manual) 8, Eosinophils % (Manual) 1, Metamyelocytes % 3 H, Diff Path Review March, Platelet Estimate ADEQUATE, RBC Morphology NORM C+C 07/16/21 03:35: Sodium 134 L, Potassium 4.0, Chloride 98, Carbon Dioxide 27.0, Anion Gap 9, BUN 17, Creatinine 0.69, Estim Creat Clear Calc 40.81, Est GFR (MDRD) Af Amer 107, Est GFR (MDRD) Non-Af 88, BUN/Creatinine Ratio 24.5 H, Glucose 111 H, Calcium 8.7, Total Bilirubin 0.50, AST 39 H, ALT 58 H, Alkaline Phosphatase 48, Total Protein 7.0, Albumin 3.0 L, Globulin 4.0, Albumin/Globulin Ratio 0.8 L Physical Exam Const no apparent distress General Appearance: on BiPAP Orientation / Consciousness: awake and oriented to person Nutritional Appearance: obese HEENT normocephalic and head/scalp atraumatic Eyes PERRL, EOMs intact bilaterally and conjunctivae normal Neck No nuchal rigidity and supple General: trachea midline Chest Chest: symmetrical chest wall rise Resp normal respiratory effort, no retractions, no use of accessory muscles and clear to auscultation bilaterally Auscultation: diminished lung sounds; Negative for rales, rhonchi or wheezes Cardio regular rate, regular rhythm, S1 normal heart sound and S2 normal heart sound GI normal to inspection, nondistended, normoactive bowel sounds, non-tender and non-distended Extremity normal to inspection and no clubbing, cyanosis or edema Skin no rashes or lesions noted Neuro CN's II-XII intact bilaterally, moves all extremities and no focal motor deficits Psych cooperative and affect normal Attention / Concentration: attention grossly impaired Charges/Coding Procedures Hospitalists Procedures: 19702 Critial Care 1st Hr
[2021-07-16] MEDS: Ipratropium/Albuterol Sulfate 3 ML AMPUL.NEB INHALATION ×4 (07:09→19:18)
[2021-07-16] MEDS: guaiFENesin 1,200 MG Tablet 1200 MG PO ×2 (10:44→20:47)
[2021-07-16] MEDS: Cholecalciferol (VIT D3) 25 MCG TABLET (1,000 UNITS) 125 MCG PO (10:44)
[2021-07-16] MEDS: Multivitamins,Ther W-Minerals Tablet 1 TABLET PO (10:44)
[2021-07-16] MEDS: Thyroid 60 MG Tablet 120 MG PO (10:44)
[2021-07-16] MEDS: Enoxaparin 30 MG/0.3 ML Syringe SC ×2 (10:44→20:47)
[2021-07-16] MEDS: dexAMETHasone 2 MG TABLET 6 MG PO (10:44)
[2021-07-16] MEDS: 0.9% Saline Lock 10 ML Syringe IV (10:49)
--- NOTE | 2021-07-16 11:15 | CASEMGMT ---
KATY CM completed palliative screening tool for Lace/Strata 3. Patient does not meet criteria at this time.
[2021-07-16] MEDS: Acetaminophen 325 MG Tablet 650 MG PO (12:47)
[2021-07-16 13:09] LABS: Pathologist Review Reviewed
--- NOTE | 2021-07-16 14:23 | PN.HOSP_ITS ---
Subjective Subjective Patient seen and examined. She also on BiPAP at time of review complained of being tired of being in the hospital. She remains short of breath and was being switched to high flow oxygen via the air Vo. Review of systems otherwise negative. Objective Data Objective Data Vital Signs: Vital Signs Temp Pulse Resp BP Pulse Ox 97.7 F L 86 21 H 137/79 H 94 07/16/21 12:00 07/16/21 13:00 07/16/21 13:00 07/16/21 13:00 07/16/21 13:00 Oxygen Flow Rate (L/min) 50 Oxygen Delivery Method Airvo Weight: 175 lb 14.862 oz Body Mass Index (BMI) 34.4 Intake & Output: Intake and Output for Last 24 Hours 07/14/21 07/15/21 07/16/21 23:59 23:59 23:59 Intake Total 920 / 928 8 / 8 Output Total 1495 / 1495 200 / 200 Balance -575 / -567 -192 / -192 Lab / Micro Data Result Diagrams: 07/16/21 03:35 07/16/21 03:35 Labs: Laboratory Results - last 24 hr 07/16/21 03:35: WBC 10.8, RBC 4.54, Hgb 13.8, Hct 42.0, MCV 92.5, MCH 30.4, MCHC 32.9, RDW Std Deviation 41.5, RDW Coeff of Amy 12.2, Plt Count 407, MPV 9.4, Neut % (Auto) Not Reportable, Absolute Neuts (auto) 8.5 H, Absolute Lymphs ( auto) 1.30, Total Counted 100, Neutrophils % (Manual) 76 H, Lymphocytes % (Manual) 12 L, Monocytes % (Manual) 8, Eosinophils % (Manual) 1, Metamyelocytes % 3 H, Diff Path Review Reviewed, Platelet Estimate ADEQUATE, RBC Morphology NORM C+C 07/16/21 03:35: Sodium 134 L, Potassium 4.0, Chloride 98, Carbon Dioxide 27.0, Anion Gap 9, BUN 17, Creatinine 0.69, Estim Creat Clear Calc 40.81, Est GFR (MDRD) Af Amer 107, Est GFR (MDRD) Non-Af 88, BUN/Creatinine Ratio 24.5 H, Glucose 111 H, Calcium 8.7, Total Bilirubin 0.50, AST 39 H, ALT 58 H, Alkaline Phosphatase 48, Total Protein 7.0, Albumin 3.0 L, Globulin 4.0, Albumin/Globulin Ratio 0.8 L Physical Exam Const alert and oriented x3 Orientation / Consciousness: lethargic Exam Limitations: no limitations HEENT head/scalp atraumatic and moist oral mucous membranes Head and Scalp: normocephalic Eyes PERRL, EOMs intact bilaterally and conjunctivae normal Neck no lymphadenopathy, supple, no JVD and no carotid bruits Cardio regular rate, regular rhythm, S1 normal heart sound, S2 normal heart sound and no murmurs GI normal to inspection, nondistended, normoactive bowel sounds, soft to palpation, non-tender and non-distended Extremity normal to inspection, full ROM and no clubbing, cyanosis or edema Peripheral Pulses: Yes pulses 2+ throughout Skin no rashes or lesions noted Neuro oriented x3, CN's II-XII intact bilaterally and moves all extremities Sensorium / Orientation: awake and alert Psych affect normal Assessment & Plan Assessment/Plan (1) COVID-19: (2) Acute hypoxemic respiratory failure: (3) Pneumonia due to 2019-nCoV: PLAN: #Acute hypoxic respiratory failure due to COVID 19 infection * was on BIPAP this morning, and being transitioned to AirVO * CT chest was negative for PE * on PO dexamethasone * on breathing treatment with bronchodilators * titrate oxygen to maintain sats >90% * #Hypokalemia: resolved #Hypothyroidism: on synthroid. DVT prophylaxis: lovenox 30mg bid Charges/Coding Visit Charges Inpatient E&M: 51637 [facility] Hosp L3
--- NOTE | 2021-07-16 15:34 | CASEMGMT ---
RN JOSELYN Chart Review: Patient was admitted 07/09-07/11/21 for Covid pneumonia. See RN JOSELYN assessment from 07/10/21. Patient was discharged to home with home oxygen through [employer] 2-6 lpm. Patient returned to [facility] ED on 07/14 for worsening shortness of breath. Patient was requiring 12 lpm of oxygen. Patient is currently on Airvo FiO2@82%. Nursing updated CM and SW that patient is requesting SNF. Will monitor patient's course of treatment and monitor progress with therapy.
--- NOTE | 2021-07-16 16:58 | CASEMGMT ---
Social Work Note SW updated that pt is requesting SNF at discharge. Pt on Bipap/Airvo today. SW will follow up with pt once pt is more medically stable. SW to continue to follow. Plan: SNF [facility]
[2021-07-16] MEDS: MELATONIN 3 MG TABLET PO (20:47)
[2021-07-17] VITALS (39 sets, daily range): BP systolic 99–140; BP diastolic 69–87; PULSE 67–110; RESP 13–22; TEMP 35.9–36.7; O2SAT 90–97
[2021-07-17 03:47] LABS: Anion Gap 8 (5-15); BUN 17 mg/dL (7-18); BUN/Creat Ratio 29.2 RATIO (10-20); Calcium,Total 8.9 mg/dL (8.5-10.1); Chloride 100 mmol/L (98-107); Creatinine, Serum 0.58 mg/dL (0.55-1.02); EST Glomerular Filtration Rate 108 mL/min (>60); Est Glom Filt Rate - Afr Amer 131 mL/min (>60); Estimated Creatinine Clearance 40.81 ml/min; Glucose 105 mg/dL (74-106); Potassium 4.1 mmol/L (3.5-5.1); Sodium Level 135 mmol/L (136-145)
[2021-07-17] MEDS: Ipratropium/Albuterol Sulfate 3 ML AMPUL.NEB INHALATION ×4 (07:05→18:56)
--- NOTE | 2021-07-17 07:31 | PN.CC_ITS ---
Assessment & Plan Assessment/Plan (1) Acute hypoxemic respiratory failure: (2) COVID-19: PLAN: RECOMMENDATIONS: 1. Continue Airvo heated high flow and wean FiO2 to maintain saturations at or above 90%. 2. Continue twice daily Lovenox therapy. 3. Continue Decadron to complete 10-day treatment course. 4. Mobilize patient as tolerated. 5. Utilize as needed diuretics to maintain euvolemic state. IMPRESSIONS: 1. Acute hypoxemic respiratory failure secondary to COVID-19 pneumonia In addition to Covid, the patient's presenting hypertension likely contributed to her clinical decompensation. Plan to continue supportive measures with heated high flow oxygen to maintain saturations at or above 90%. Given the patient's duration of symptoms, she is not a candidate for remdesivir. She will be continued on Decadron again to complete a 10-day treatment course. Diuretics can be utilized as needed to maintain euvolemic state. Encourage incentive spirometer use and mobilize patient as tolerated. 2. Obesity/advanced age/anxiety/hypothyroidism Complicates care, management, recovery and prognosis. Continue home medications as indicated. This note was generated with [employer] dictation software. It may contain incorrect words, spelling, and punctuation that were not noted in checking the note before signing. Subjective Subjective The patient was seen and examined at the bedside this morning. Events from the last 24 hours have been reviewed. The patient is currently afebrile, hemodynamically stable and maintaining appropriate oxygen saturations on Airvo heated high flow with an FiO2 requirement of 80% and flow rate of 50 L/min. She is currently documented to be overall net -1 L for the hospital admission. The patient remains on Decadron and Lovenox. Objective Data Objective Data The patient's most recent lab work, culture data and imaging studies have all been personally reviewed. Rapid coronavirus antigen testing was positive on July 09. Vital Signs: Vital Signs Temp Pulse Resp BP Pulse Ox 97.6 F L 77 18 140/80 H 92 07/17/21 05:00 07/17/21 07:06 07/17/21 07:06 07/17/21 07:00 07/17/21 07:04 Oxygen Flow Rate (L/min) 50 Oxygen Delivery Method Airvo Weight: 79.6 kg Body Mass Index (BMI) 34.4 Intake & Output: Intake and Output for Last 24 Hours 07/15/21 07/16/21 07/17/21 23:59 23:59 23:59 Intake Total 920 / 928 248 / 248 Output Total 1495 / 1495 400 / 400 350 / 350 Balance -575 / -567 -152 / -152 -350 / -350 Lab / Micro Data Attestation: I reviewed the patient's lab results. Result Diagrams: 07/16/21 03:35 07/17/21 03:25 Labs: Laboratory Results - last 24 hr 07/16/21 03:35: Diff Path Review Reviewed 07/17/21 03:25: Sodium 135 L, Potassium 4.1, Chloride 100, Carbon Dioxide 27.0, Anion Gap 8, BUN 17, Creatinine 0.58, Estim Creat Clear Calc 40.81, Est GFR ( MDRD) Af Amer 131, Est GFR (MDRD) Non-Af 108, BUN/Creatinine Ratio 29.2 H, Gl ucose 105, Calcium 8.9 Physical Exam Const alert and no apparent distress General Appearance: cooperative Nutritional Appearance: obese HEENT normocephalic and head/scalp atraumatic Eyes PERRL, EOMs intact bilaterally and conjunctivae normal Neck supple General: trachea midline Resp normal respiratory effort Auscultation: diminished lung sounds; Negative for rales, rhonchi or wheezes Cardio regular rate and regular rhythm GI normal to inspection, nondistended, normoactive bowel sounds Extremity no clubbing, cyanosis or edema Skin no rashes or lesions noted Neuro CN's II-XII intact bilaterally and no focal motor deficits Psych Mood & Affect: flat affect Charges/Coding Visit Charges Inpatient E&M: 21862 Subs Hosp L3
[2021-07-17] MEDS: Thyroid 60 MG Tablet 120 MG PO (09:04)
[2021-07-17] MEDS: Cholecalciferol (VIT D3) 25 MCG TABLET (1,000 UNITS) 125 MCG PO (09:05)
[2021-07-17] MEDS: dexAMETHasone 2 MG TABLET 6 MG PO (09:05)
[2021-07-17] MEDS: Multivitamins,Ther W-Minerals Tablet 1 TABLET PO (09:05)
[2021-07-17] MEDS: Enoxaparin 30 MG/0.3 ML Syringe SC ×2 (09:06→22:10)
--- NOTE | 2021-07-17 10:58 | PN.HOSP_ITS ---
Subjective Subjective Patient seen and examined. She is on AirVo. She still feels weak and still feels short of breath. REview of systems is otherwise negative. She remains mildly tachycardic, with HR of 102. Vitals have otherwise remained stable. Objective Data Objective Data Vital Signs: Vital Signs Temp Pulse Resp BP Pulse Ox 97.6 F L 102 H 18 112/76 93 07/17/21 08:00 07/17/21 10:00 07/17/21 10:00 07/17/21 10:00 07/17/21 10:00 Oxygen Flow Rate (L/min) 50 Oxygen Delivery Method Airvo Weight: 175 lb 7.807 oz Body Mass Index (BMI) 34.4 Intake & Output: Intake and Output for Last 24 Hours 07/15/21 07/16/21 07/17/21 23:59 23:59 23:59 Intake Total 920 / 928 248 / 248 Output Total 1495 / 1495 400 / 400 350 / 350 Balance -575 / -567 -152 / -152 -350 / -350 Lab / Micro Data Result Diagrams: 07/16/21 03:35 07/17/21 03:25 Labs: Laboratory Results - last 24 hr 07/16/21 03:35: Diff Path Review Reviewed 07/17/21 03:25: Sodium 135 L, Potassium 4.1, Chloride 100, Carbon Dioxide 27.0, Anion Gap 8, BUN 17, Creatinine 0.58, Estim Creat Clear Calc 40.81, Est GFR (MDRD) Af Amer 131, Est GFR (MDRD) Non-Af 108, BUN/Creatinine Ratio 29.2 H, Glucose 105, Calcium 8.9 Micro: Microbiology 07/14/21 19:10 Blood Culture (Wb) - Left Forearm Blood Culture - Final No growth in 5 days. 07/14/21 19:00 Blood Culture (Wb) - Anticubital Left Blood Culture - Final No growth in 5 days. Physical Exam Const alert and oriented x3 Orientation / Consciousness: lethargic Exam Limitations: no limitations HEENT head/scalp atraumatic and moist oral mucous membranes Head and Scalp: normocephalic Eyes PERRL, EOMs intact bilaterally and conjunctivae normal Neck no lymphadenopathy, supple, no JVD and no carotid bruits Resp Resp Narrative: diminished breath sounds bibasally, no wheezes, few crackles. On AirVo Cardio regular rate, regular rhythm, S1 normal heart sound, S2 normal heart sound and no murmurs GI normal to inspection, nondistended, normoactive bowel sounds, soft to palpation, non-tender and non-distended Extremity normal to inspection, full ROM and no clubbing, cyanosis or edema Peripheral Pulses: Yes pulses 2+ throughout Skin no rashes or lesions noted Neuro oriented x3, CN's II-XII intact bilaterally and moves all extremities Sensorium / Orientation: awake and alert Psych affect normal Assessment & Plan Assessment/Plan (1) COVID-19: (2) Acute hypoxemic respiratory failure: (3) Pneumonia due to 2019-nCoV: PLAN: #Acute hypoxic respiratory failure due to COVID 19 infection * now on AirVo * CT chest was negative for PE * on PO dexamethasone * on breathing treatment with bronchodilators * titrate oxygen to maintain sats >90% * #Hypokalemia: resolved #Hypothyroidism: on synthroid. DVT prophylaxis: lovenox 30mg bid Charges/Coding Visit Charges Inpatient E&M: 58123 Subs Hosp L3
--- NOTE | 2021-07-17 11:11 | CASEMGMT ---
RN CM participated in ICU multidisciplinary rounds. Patient is currenlty on Airvo FiO2@ 80% 50lpm. Patient is on PO Dexamethasone. Patient worked with therapy and is contact guard for transfers and ambulation. SW following for possible SNF placement. CM will continue to follow patient progress with care and assist with discharge needs.
[2021-07-17] MEDS: guaiFENesin 1,200 MG Tablet 1200 MG PO ×2 (12:31→22:10)
[2021-07-18] VITALS (36 sets, daily range): BP systolic 99–142; BP diastolic 70–93; PULSE 65–109; RESP 13–55; TEMP 35.9–36.6; O2SAT 68–97
[2021-07-18 05:03] LABS: Anion Gap 8 (5-15); BUN 19 mg/dL (7-18); BUN/Creat Ratio 32.1 RATIO (10-20); Calcium,Total 8.8 mg/dL (8.5-10.1); Chloride 100 mmol/L (98-107); Creatinine, Serum 0.59 mg/dL (0.55-1.02); EST Glomerular Filtration Rate 106 mL/min (>60); Est Glom Filt Rate - Afr Amer 129 mL/min (>60); Estimated Creatinine Clearance 40.81 ml/min; Glucose 98 mg/dL (74-106); Potassium 4.2 mmol/L (3.5-5.1); Sodium Level 134 mmol/L (136-145)
[2021-07-18] MEDS: Ipratropium/Albuterol Sulfate 3 ML AMPUL.NEB INHALATION (06:51)
--- NOTE | 2021-07-18 06:51 | PCM.PN.INT ---
Assessment & Plan Assessment/Plan (1) Acute hypoxemic respiratory failure: (2) COVID-19: PLAN: RECOMMENDATIONS: 1. Continue Airvo heated high flow and wean FiO2 to maintain saturations at or above 90%. 2. Continue twice daily Lovenox therapy. 3. Continue Decadron to complete 10-day treatment course. 4. Mobilize patient as tolerated. 5. Utilize as needed diuretics to maintain euvolemic state. IMPRESSIONS: 1. Acute hypoxemic respiratory failure secondary to COVID-19 pneumonia In addition to Covid, the patient's presenting hypertension likely contributed to her clinical decompensation. Plan to continue supportive measures with heated high flow oxygen to maintain saturations at or above 90%. Given the patient's duration of symptoms, she is not a candidate for remdesivir. She will be continued on Decadron again to complete a 10-day treatment course. Diuretics can be utilized as needed to maintain euvolemic state. Encourage incentive spirometer use and mobilize patient as tolerated. 2. Obesity/advanced age/anxiety/hypothyroidism Complicates care, management, recovery and prognosis. Continue home medications as indicated. This note was generated with [employer] dictation software. It may contain incorrect words, spelling, and punctuation that were not noted in checking the note before signing. Subjective Subjective The patient was seen and examined at the bedside this morning. Events from the last 24 hours have been reviewed. The patient is currently afebrile, hemodynamically stable and maintaining appropriate oxygen saturations on Airvo heated high flow with a flow rate of 50 L/min and FiO2 of 80%. The patient is currently documented to be overall net -2.3 L for the hospital admission. The patient remains on Decadron and Lovenox. Objective Data Objective Data The patient's most recent lab work, culture data and imaging studies have all been personally reviewed. Rapid coronavirus antigen testing was positive on July 09. Vital Signs: Vital Signs Temp Pulse Resp BP Pulse Ox 97.2 F L 70 14 106/70 94 07/18/21 04:00 07/18/21 05:06 07/18/21 05:06 07/18/21 05:00 07/18/21 05:06 Oxygen Flow Rate (L/min) 50 Oxygen Delivery Method Airvo Weight: 78 kg Body Mass Index (BMI) 34.4 Intake & Output: Intake and Output for Last 24 Hours 07/16/21 07/17/21 07/18/21 23:59 23:59 23:59 Intake Total 248 / 248 Output Total 400 / 400 1050 / 1050 550 / 550 Balance -152 / -152 -1050 / -1050 -550 / -550 Lab / Micro Data Attestation: I reviewed the patient's lab results. Result Diagrams: 07/16/21 03:35 07/18/21 04:35 Labs: Laboratory Results - last 24 hr 07/18/21 04:35: Sodium 134 L, Potassium 4.2, Chloride 100, Carbon Dioxide 26.0, Anion Gap 8, BUN 19 H, Creatinine 0.59, Estim Creat Clear Calc 40.81, Est GFR (MDRD) Af Amer 129, Est GFR (MDRD) Non-Af 106, BUN/Creatinine Ratio 32.1 H, Glucose 98, Calcium 8.8 Micro: Microbiology 07/14/21 19:10 Blood Culture (Wb) - Left Forearm Blood Culture - Final No growth in 5 days. 07/14/21 19:00 Blood Culture (Wb) - Anticubital Left Blood Culture - Final No growth in 5 days. Physical Exam Const alert and no apparent distress General Appearance: cooperative Nutritional Appearance: obese HEENT normocephalic and head/scalp atraumatic Eyes PERRL, EOMs intact bilaterally and conjunctivae normal Neck supple General: trachea midline Resp normal respiratory effort Auscultation: diminished lung sounds; Negative for rales, rhonchi or wheezes Cardio regular rate and regular rhythm GI normal to inspection, nondistended, normoactive bowel sounds Extremity no clubbing, cyanosis or edema Skin no rashes or lesions noted Neuro CN's II-XII intact bilaterally and no focal motor deficits Psych Mood & Affect: flat affect Charges/Coding Visit Charges Inpatient E&M: 37664 Subs Hosp L3
[2021-07-18] MEDS: Multivitamins,Ther W-Minerals Tablet 1 TABLET PO (09:10)
[2021-07-18] MEDS: Enoxaparin 30 MG/0.3 ML Syringe SC ×2 (09:10→20:41)
[2021-07-18] MEDS: guaiFENesin 1,200 MG Tablet 1200 MG PO ×2 (09:10→20:41)
[2021-07-18] MEDS: Thyroid 60 MG Tablet 120 MG PO (09:10)
[2021-07-18] MEDS: Cholecalciferol (VIT D3) 25 MCG TABLET (1,000 UNITS) 125 MCG PO (09:10)
[2021-07-18] MEDS: dexAMETHasone 2 MG TABLET 6 MG PO (09:10)
--- NOTE | 2021-07-18 10:06 | PN.HOSP_ITS ---
Subjective Subjective Patient seen and examined. She remains on AirVO. She complains of feeling lethargic today. She has remained hemodynamically stable. Review of systems otherwise negative. Objective Data Objective Data Vital Signs: Vital Signs Temp Pulse Resp BP Pulse Ox 96.8 F L 76 13 139/78 H 93 07/18/21 09:00 07/18/21 09:00 07/18/21 09:00 07/18/21 09:00 07/18/21 09:05 Oxygen Flow Rate (L/min) 55 Oxygen Delivery Method Airvo Weight: 171 lb 15.369 oz Body Mass Index (BMI) 34.4 Intake & Output: Intake and Output for Last 24 Hours 07/16/21 07/17/21 07/18/21 23:59 23:59 23:59 Intake Total 248 / 248 Output Total 400 / 400 1050 / 1050 550 / 550 Balance -152 / -152 -1050 / -1050 -550 / -550 Lab / Micro Data Result Diagrams: 07/16/21 03:35 07/18/21 04:35 Labs: Laboratory Results - last 24 hr 07/18/21 04:35: Sodium 134 L, Potassium 4.2, Chloride 100, Carbon Dioxide 26.0, Anion Gap 8, BUN 19 H, Creatinine 0.59, Estim Creat Clear Calc 40.81, Est GFR (MDRD) Af Amer 129, Est GFR (MDRD) Non-Af 106, BUN/Creatinine Ratio 32.1 H, Glucose 98, Calcium 8.8 Micro: Microbiology 07/14/21 19:10 Blood Culture (Wb) - Left Forearm Blood Culture - Final No growth in 5 days. 07/14/21 19:00 Blood Culture (Wb) - Anticubital Left Blood Culture - Final No growth in 5 days. Physical Exam Const alert and oriented x3 Orientation / Consciousness: lethargic Exam Limitations: no limitations HEENT head/scalp atraumatic and moist oral mucous membranes Head and Scalp: normocephalic Eyes PERRL, EOMs intact bilaterally and conjunctivae normal Neck no lymphadenopathy, supple, no JVD and no carotid bruits Resp Resp Narrative: diminished breath sounds bibasally, no wheezes, few crackles. remains on AirVo Cardio regular rate, regular rhythm, S1 normal heart sound, S2 normal heart sound and no murmurs GI normal to inspection, nondistended, normoactive bowel sounds, soft to palpation, non-tender and non-distended Extremity normal to inspection, full ROM and no clubbing, cyanosis or edema Peripheral Pulses: Yes pulses 2+ throughout Skin no rashes or lesions noted Neuro oriented x3, CN's II-XII intact bilaterally and moves all extremities Sensorium / Orientation: awake and alert Psych affect normal Assessment & Plan Assessment/Plan (1) COVID-19: (2) Acute hypoxemic respiratory failure: (3) Pneumonia due to 2019-nCoV: PLAN: #Acute hypoxic respiratory failure due to COVID 19 infection * remains on AirVo * CT chest was negative for PE * on PO dexamethasone * on breathing treatment with bronchodilators * titrate oxygen to maintain sats >90% * in cumulative negative balance by 2.32L * #Hypokalemia: resolved #Hypothyroidism: on synthroid. DVT prophylaxis: lovenox 30mg bid Charges/Coding Visit Charges Inpatient E&M: 49598 Subs Hosp L3
--- NOTE | 2021-07-18 10:15 | CASEMGMT ---
Tertiary Facilities in-network with patient's [facility] [place] insurance: Melissa Mejia, [facility], [facility], [facility], .
--- NOTE | 2021-07-18 12:53 | CASEMGMT ---
SW met w/pt in room in regard to [facility] choices. Pt agrees that she needs to go to a senior care facility. SW provided list to pt of nursing homes in her insurance network, that will take COVID positive patients, that includes quality data. Pt would like a referral sent to [facility]. SW will send some initial clinical information, though pt is not yet clinically ready for discharge to senior care facility. NALINI Villarreal
[2021-07-18] MEDS: Glycerin/Hypromellose/PEG400 15 ml Bottle 2 DRP EACH EYE (15:15)
[2021-07-19] VITALS (19 sets, daily range): BP systolic 111–143; BP diastolic 57–93; PULSE 63–112; RESP 12–22; TEMP 36.4–36.6; O2SAT 88–97
[2021-07-19 05:06] LABS: Anion Gap 7 (5-15); BUN 23 mg/dL (7-18); BUN/Creat Ratio 40.6 RATIO (10-20); Calcium,Total 8.9 mg/dL (8.5-10.1); Chloride 100 mmol/L (98-107); Creatinine, Serum 0.57 mg/dL (0.55-1.02); EST Glomerular Filtration Rate 112 mL/min (>60); Est Glom Filt Rate - Afr Amer 135 mL/min (>60); Estimated Creatinine Clearance 40.81 ml/min; Glucose 106 mg/dL (74-106); Potassium 4.2 mmol/L (3.5-5.1); Sodium Level 135 mmol/L (136-145)
--- NOTE | 2021-07-19 06:23 | PCM.PN.INT ---
Assessment & Plan Assessment/Plan (1) Acute hypoxemic respiratory failure: (2) COVID-19: PLAN: RECOMMENDATIONS: 1. Continue Airvo heated high flow and wean FiO2 to maintain saturations at or above 90%. 2. Continue twice daily Lovenox therapy. 3. Continue Decadron to complete 10-day treatment course. 4. Mobilize patient as tolerated. 5. Utilize as needed diuretics to maintain euvolemic state. IMPRESSIONS: 1. Acute hypoxemic respiratory failure secondary to COVID-19 pneumonia In addition to Covid, the patient's presenting hypertension likely contributed to her clinical decompensation. Plan to continue supportive measures with heated high flow oxygen to maintain saturations at or above 90%. Given the patient's duration of symptoms, she is not a candidate for remdesivir. She will be continued on Decadron again to complete a 10-day treatment course. Diuretics can be utilized as needed to maintain euvolemic state. Encourage incentive spirometer use and mobilize patient as tolerated. 2. Obesity/advanced age/anxiety/hypothyroidism Complicates care, management, recovery and prognosis. Continue home medications as indicated. This note was generated with [employer] dictation software. It may contain incorrect words, spelling, and punctuation that were not noted in checking the note before signing. Subjective Subjective The patient was seen and examined at the bedside this morning. Events from the last 24 hours have been reviewed. The patient is currently afebrile, hemodynamically stable and maintaining appropriate oxygen saturations on Airvo heated high flow with a flow rate of 55 L/min and FiO2 of 75%. The patient continues to have diffuse musculoskeletal pain. She is currently documented to be overall net -2.6 L for the hospital admission. The patient has now completed her treatment course of Decadron and remains on Lovenox. Objective Data Objective Data The patient's most recent lab work, culture data and imaging studies have all been personally reviewed. Rapid coronavirus antigen testing was positive on July 09. Vital Signs: Vital Signs Temp Pulse Resp BP Pulse Ox 97.8 F 66 22 H 135/76 H 95 07/19/21 06:00 07/19/21 06:00 07/19/21 06:00 07/19/21 06:00 07/19/21 06:00 Oxygen Flow Rate (L/min) 60 Oxygen Delivery Method Bi-pap Weight: 79.1 kg Body Mass Index (BMI) 34.4 Intake & Output: Intake and Output for Last 24 Hours 07/17/21 07/18/21 07/19/21 23:59 23:59 23:59 Intake Total 150 / 150 Output Total 1050 / 1050 850 / 850 200 / 200 Balance -1050 / -1050 -850 / -850 -50 / -50 Lab / Micro Data Attestation: I reviewed the patient's lab results. Result Diagrams: 07/16/21 03:35 07/19/21 04:25 Labs: Laboratory Results - last 24 hr 07/19/21 04:25: Sodium 135 L, Potassium 4.2, Chloride 100, Carbon Dioxide 28.0, Anion Gap 7, BUN 23 H, Creatinine 0.57, Estim Creat Clear Calc 40.81, Est GFR (MDRD) Af Amer 135, Est GFR (MDRD) Non-Af 112, BUN/Creatinine Ratio 40.6 H, Glucose 106, Calcium 8.9 Micro: Microbiology 07/14/21 19:10 Blood Culture (Wb) - Left Forearm Blood Culture - Final No growth in 5 days. 07/14/21 19:00 Blood Culture (Wb) - Anticubital Left Blood Culture - Final No growth in 5 days. Physical Exam Const alert and no apparent distress General Appearance: cooperative Nutritional Appearance: obese HEENT normocephalic and head/scalp atraumatic Eyes PERRL, EOMs intact bilaterally and conjunctivae normal Neck supple General: trachea midline Resp normal respiratory effort Auscultation: diminished lung sounds; Negative for rales, rhonchi or wheezes Cardio regular rate and regular rhythm GI normal to inspection, nondistended, normoactive bowel sounds Extremity no clubbing, cyanosis or edema Skin no rashes or lesions noted Neuro CN's II-XII intact bilaterally and no focal motor deficits Psych Mood & Affect: flat affect Charges/Coding Visit Charges Inpatient E&M: 07702 Subs Hosp L3
[2021-07-19] MEDS: Enoxaparin 30 MG/0.3 ML Syringe SC ×2 (08:44→21:22)
[2021-07-19] MEDS: Thyroid 60 MG Tablet 120 MG PO (08:45)
[2021-07-19] MEDS: Cholecalciferol (VIT D3) 25 MCG TABLET (1,000 UNITS) 125 MCG PO (08:46)
[2021-07-19] MEDS: guaiFENesin 1,200 MG Tablet 1200 MG PO ×2 (08:46→21:23)
[2021-07-19] MEDS: Multivitamins,Ther W-Minerals Tablet 1 TABLET PO (08:46)
--- NOTE | 2021-07-19 10:18 | PN.HOSP_ITS ---
Subjective Subjective Patient seen and examined. She remains on AirVo. She stated she is doing her best to fight this disease, and wanted to know if there was anything more she could do. Patient counseled that she just had to let the disease run its course, whilst the medical team provided supportive relief. Review of systems otherwise negative. She has remained hemodynamically stable otherwise. Objective Data Objective Data Vital Signs: Vital Signs Temp Pulse Resp BP Pulse Ox 97.8 F 90 16 138/79 H 88 07/19/21 08:00 07/19/21 08:00 07/19/21 08:00 07/19/21 08:00 07/19/21 09:50 Oxygen Flow Rate (L/min) 6 Oxygen Delivery Method Nasal Cannula Weight: 174 lb 6.17 oz Body Mass Index (BMI) 34.4 Intake & Output: Intake and Output for Last 24 Hours 07/17/21 07/18/21 07/19/21 23:59 23:59 23:59 Intake Total 150 / 150 Output Total 1050 / 1050 850 / 850 200 / 200 Balance -1050 / -1050 -850 / -850 -50 / -50 Lab / Micro Data Result Diagrams: 07/16/21 03:35 07/19/21 04:25 Labs: Laboratory Results - last 24 hr 07/19/21 04:25: Sodium 135 L, Potassium 4.2, Chloride 100, Carbon Dioxide 28.0, Anion Gap 7, BUN 23 H, Creatinine 0.57, Estim Creat Clear Calc 40.81, Est GFR (MDRD) Af Amer 135, Est GFR (MDRD) Non-Af 112, BUN/Creatinine Ratio 40.6 H, Glucose 106, Calcium 8.9 Micro: Microbiology 07/14/21 19:10 Blood Culture (Wb) - Left Forearm Blood Culture - Final No growth in 5 days. 07/14/21 19:00 Blood Culture (Wb) - Anticubital Left Blood Culture - Final No growth in 5 days. Physical Exam Const alert and oriented x3 Orientation / Consciousness: lethargic Exam Limitations: no limitations HEENT head/scalp atraumatic and moist oral mucous membranes Head and Scalp: normocephalic Eyes PERRL, EOMs intact bilaterally and conjunctivae normal Neck no lymphadenopathy, supple, no JVD and no carotid bruits Resp Resp Narrative: diminished breath sounds bibasally, no wheezes, few crackles. remains on AirVo Cardio regular rate, regular rhythm, S1 normal heart sound, S2 normal heart sound and no murmurs GI normal to inspection, nondistended, normoactive bowel sounds, soft to palpation, non-tender and non-distended Extremity normal to inspection, full ROM and no clubbing, cyanosis or edema Peripheral Pulses: Yes pulses 2+ throughout Skin no rashes or lesions noted Neuro oriented x3, CN's II-XII intact bilaterally and moves all extremities Sensorium / Orientation: awake and alert Psych affect normal Assessment & Plan Assessment/Plan (1) COVID-19: (2) Acute hypoxemic respiratory failure: (3) Pneumonia due to 2019-nCoV: PLAN: #Acute hypoxic respiratory failure due to COVID 19 infection * remains on AirVo * on PO dexamethasone * on breathing treatment with bronchodilators * titrate oxygen to maintain sats >90% * in cumulative negative balance by 2.67 * #Hypokalemia: resolved #Hypothyroidism: on synthroid. DVT prophylaxis: lovenox 30mg bid Charges/Coding Visit Charges Inpatient E&M: 47581 Subs Hosp L3
--- NOTE | 2021-07-19 13:38 | CASEMGMT ---
MAL called [facility], the initial referral was not received yesterday. MAL explained will re-send the referral today, though pt is not quite ready for discharge. [facility] would not be able to take pt until 14 days after the positive test, so this would be July 23. MAL faxed referral to [facility], will continue to follow. NALINI Villarreal
--- NOTE | 2021-07-19 15:28 | CASEMGMT ---
SW spoke w/Rosalba from [facility], they would be able to take pt on Friday, as that is when pt will be 14 days from her positive COVID test. SW will neet to attain precert as pt has [employer]. SW will start working on attaining precert from [facility] once clinically ready for discharge. NALINI Villarreal
[2021-07-20] VITALS (15 sets, daily range): BP systolic 113–134; BP diastolic 68–82; PULSE 69–100; RESP 16–20; TEMP 36.3–36.6; O2SAT 92–97
[2021-07-20 04:17] LABS: Anion Gap 5 (5-15); BUN 26 mg/dL (7-18); Calcium,Total 8.8 mg/dL (8.5-10.1); Chloride 100 mmol/L (98-107); Creatinine, Serum 0.76 mg/dL (0.55-1.02); EST Glomerular Filtration Rate 79 mL/min (>60); Est Glom Filt Rate - Afr Amer 96 mL/min (>60); Estimated Creatinine Clearance 40.81 ml/min; Glucose 97 mg/dL (74-106); Potassium 4.3 mmol/L (3.5-5.1); Sodium Level 136 mmol/L (136-145)
--- NOTE | 2021-07-20 06:20 | PCM.PN.INT ---
Assessment & Plan Assessment/Plan (1) Acute hypoxemic respiratory failure: (2) COVID-19: PLAN: RECOMMENDATIONS: 1. Continue to wean supplemental oxygen to maintain saturations at or above 90%. 2. Continue twice daily Lovenox therapy. 3. Mobilize patient as tolerated. 4. Utilize as needed diuretics to maintain euvolemic state. 5. Will sign off from a critical care perspective. Please call with any additional questions. IMPRESSIONS: 1. Acute hypoxemic respiratory failure secondary to COVID-19 pneumonia In addition to Covid, the patient's presenting hypertension likely contributed to her clinical decompensation. Plan to continue supportive measures with heated high flow oxygen to maintain saturations at or above 90%. Given the patient's duration of symptoms, she was not a candidate for remdesivir. She did complete a 10-day treatment course of Decadron, nevertheless. Diuretics can be utilized as needed to maintain euvolemic state. Encourage incentive spirometer use and mobilize patient as tolerated. 2. Obesity/advanced age/anxiety/hypothyroidism Complicates care, management, recovery and prognosis. Continue home medications as indicated. This note was generated with [employer] dictation software. It may contain incorrect words, spelling, and punctuation that were not noted in checking the note before signing. Subjective Subjective The patient was seen and examined at the bedside this morning. Events from the last 24 hours have been reviewed. The patient is currently afebrile, hemodynamically stable and maintaining appropriate oxygen saturations on 6 L/min via nasal cannula. The patient is currently documented to be overall net -2.6 L for the hospital admission. Chemistry profile was unremarkable. Per case management, the patient could be transferred to a nursing facility on Friday. Objective Data Objective Data The patient's most recent lab work, culture data and imaging studies have all been personally reviewed. Rapid coronavirus antigen testing was positive on July 09. Blood cultures have demonstrated no growth to date. Vital Signs: Vital Signs Temp Pulse Resp BP Pulse Ox 97.8 F 79 18 121/68 H 93 07/20/21 02:34 07/20/21 04:00 07/20/21 02:34 07/20/21 02:34 07/20/21 02:34 Oxygen Flow Rate (L/min) 6 Oxygen Delivery Method Nasal Cannula Weight: 79.1 kg Body Mass Index (BMI) 34.4 Intake & Output: Intake and Output for Last 24 Hours 07/18/21 07/19/21 07/20/21 23:59 23:59 23:59 Intake Total 650 / 650 Output Total 850 / 850 400 / 700 300 / 300 Balance -850 / -850 250 / -50 -300 / -300 Lab / Micro Data Attestation: I reviewed the patient's lab results. Result Diagrams: 07/16/21 03:35 07/20/21 03:50 Labs: Laboratory Results - last 24 hr 07/20/21 03:50: Sodium 136, Potassium 4.3, Chloride 100, Carbon Dioxide 31.0, Anion Gap 5, BUN 26 H, Creatinine 0.76, Estim Creat Clear Calc 40.81, Est GFR (MDRD) Af Amer 96, Est GFR (MDRD) Non-Af 79, BUN/Creatinine Ratio 34.0 H, Glucose 97, Calcium 8.8 Micro: Microbiology 07/14/21 19:10 Blood Culture (Wb) - Left Forearm Blood Culture - Final No growth in 5 days. 07/14/21 19:00 Blood Culture (Wb) - Anticubital Left Blood Culture - Final No growth in 5 days. Physical Exam Const alert and no apparent distress General Appearance: cooperative Nutritional Appearance: obese HEENT normocephalic and head/scalp atraumatic Eyes PERRL, EOMs intact bilaterally and conjunctivae normal Neck supple General: trachea midline Resp normal respiratory effort Auscultation: diminished lung sounds; Negative for rales, rhonchi or wheezes Cardio regular rate and regular rhythm GI normal to inspection, nondistended, normoactive bowel sounds Extremity no clubbing, cyanosis or edema Skin no rashes or lesions noted Neuro CN's II-XII intact bilaterally and no focal motor deficits Psych Mood & Affect: flat affect Charges/Coding Visit Charges Inpatient E&M: 44872 Subs Hosp L2
[2021-07-20] MEDS: Thyroid 60 MG Tablet 120 MG PO (08:44)
[2021-07-20] MEDS: guaiFENesin 1,200 MG Tablet 1200 MG PO ×2 (08:45→21:31)
[2021-07-20] MEDS: Enoxaparin 30 MG/0.3 ML Syringe SC ×2 (08:45→21:31)
[2021-07-20] MEDS: Cholecalciferol (VIT D3) 25 MCG TABLET (1,000 UNITS) 125 MCG PO (08:45)
[2021-07-20] MEDS: Multivitamins,Ther W-Minerals Tablet 1 TABLET PO (08:45)
--- NOTE | 2021-07-20 10:47 | PN.HOSP_ITS ---
Subjective Subjective Patient seen and examined. She had no active complaints today. She looks lethargic and remains on air Vo. She has otherwise remained hemodynamically stable. Review of systems otherwise negative. Objective Data Objective Data Vital Signs: Vital Signs Temp Pulse Resp BP Pulse Ox 98 F 84 18 134/80 H 93 07/20/21 08:00 07/20/21 08:00 07/20/21 08:00 07/20/21 08:00 07/20/21 08:00 Oxygen Flow Rate (L/min) 3 Oxygen Delivery Method Nasal Cannula Weight: 174 lb 6.17 oz Body Mass Index (BMI) 34.4 Intake & Output: Intake and Output for Last 24 Hours 07/18/21 07/19/21 07/20/21 23:59 23:59 23:59 Intake Total 650 / 650 Output Total 850 / 850 400 / 600 300 / 300 Balance -850 / -850 250 / 50 -300 / -300 Lab / Micro Data Result Diagrams: 07/16/21 03:35 07/20/21 03:50 Labs: Laboratory Results - last 24 hr 07/20/21 03:50: Sodium 136, Potassium 4.3, Chloride 100, Carbon Dioxide 31.0, Anion Gap 5, BUN 26 H, Creatinine 0.76, Estim Creat Clear Calc 40.81, Est GFR (MDRD) Af Amer 96, Est GFR (MDRD) Non-Af 79, BUN/Creatinine Ratio 34.0 H, Glucose 97, Calcium 8.8 Micro: Microbiology 07/14/21 19:10 Blood Culture (Wb) - Left Forearm Blood Culture - Final No growth in 5 days. 07/14/21 19:00 Blood Culture (Wb) - Anticubital Left Blood Culture - Final No growth in 5 days. Physical Exam Const alert, oriented x3 and no apparent distress Orientation / Consciousness: lethargic Exam Limitations: no limitations HEENT head/scalp atraumatic and moist oral mucous membranes Head and Scalp: normocephalic Eyes PERRL, EOMs intact bilaterally and conjunctivae normal Neck no lymphadenopathy, supple, no JVD and no carotid bruits Resp Resp Narrative: diminished breath sounds bibasally, no wheezes, few crackles. remains on AirVo Cardio regular rate, regular rhythm, S1 normal heart sound, S2 normal heart sound and no murmurs GI normal to inspection, nondistended, normoactive bowel sounds, soft to palpation, non-tender and non-distended Extremity normal to inspection, full ROM and no clubbing, cyanosis or edema Peripheral Pulses: Yes pulses 2+ throughout Skin no rashes or lesions noted Neuro oriented x3, CN's II-XII intact bilaterally and moves all extremities Sensorium / Orientation: awake and alert Psych Psych Narrative: flat affect Assessment & Plan Assessment/Plan (1) COVID-19: (2) Acute hypoxemic respiratory failure: (3) Pneumonia due to 2019-nCoV: PLAN: #Acute hypoxic respiratory failure due to COVID 19 infection * remains on AirVo * on PO dexamethasone * on breathing treatment with bronchodilators * titrate oxygen to maintain sats >90% * in cumulative negative balance by 2.67 * #Hypokalemia: resolved #Hypothyroidism: on synthroid. DVT prophylaxis: lovenox 30mg bid Charges/Coding Visit Charges Inpatient E&M: 09386 Subs Hosp L3
[2021-07-21] VITALS (17 sets, daily range): BP systolic 104–142; BP diastolic 61–88; PULSE 75–102; RESP 16–19; TEMP 36.6–36.7; O2SAT 93–98
[2021-07-21 04:52] LABS: Anion Gap 3 (5-15); BUN 23 mg/dL (7-18); BUN/Creat Ratio 35.3 RATIO (10-20); Calcium,Total 8.8 mg/dL (8.5-10.1); Chloride 102 mmol/L (98-107); Creatinine, Serum 0.65 mg/dL (0.55-1.02); EST Glomerular Filtration Rate 95 mL/min (>60); Est Glom Filt Rate - Afr Amer 115 mL/min (>60); Estimated Creatinine Clearance 40.81 ml/min; Glucose 120 mg/dL (74-106); Potassium 4.2 mmol/L (3.5-5.1); Sodium Level 137 mmol/L (136-145)
[2021-07-21] MEDS: guaiFENesin 1,200 MG Tablet 1200 MG PO ×2 (10:57→20:58)
[2021-07-21] MEDS: Cholecalciferol (VIT D3) 25 MCG TABLET (1,000 UNITS) 125 MCG PO (10:57)
[2021-07-21] MEDS: Thyroid 60 MG Tablet 120 MG PO (10:57)
[2021-07-21] MEDS: Enoxaparin 30 MG/0.3 ML Syringe SC ×2 (10:58→20:58)
[2021-07-21] MEDS: Multivitamins,Ther W-Minerals Tablet 1 TABLET PO (10:58)
--- NOTE | 2021-07-21 11:18 | PN.HOSP_ITS ---
Subjective Subjective Patient seen and examined. She has been weaned off Airvo onto oxygen by nasal canula, and is now on 5L. Review of systems otherwise negative. She is tachycardic this morning. She is in cumulative negative balance by 2.85L. Objective Data Objective Data Vital Signs: Vital Signs Temp Pulse Resp BP Pulse Ox 97.9 F 102 H 16 108/85 H 93 07/21/21 11:02 07/21/21 11:02 07/21/21 11:02 07/21/21 11:02 07/21/21 11:02 Oxygen Flow Rate (L/min) 5 Oxygen Delivery Method Nasal Cannula Weight: 177 lb 7.554 oz Body Mass Index (BMI) 34.4 Intake & Output: Intake and Output for Last 24 Hours 07/19/21 07/20/21 07/21/21 23:59 23:59 23:59 Intake Total 650 / 650 480 / 480 Output Total 400 / 600 800 / 800 150 / 150 Balance 250 / 50 -320 / -320 -150 / -150 Lab / Micro Data Result Diagrams: 07/16/21 03:35 07/21/21 04:05 Labs: Laboratory Results - last 24 hr 07/21/21 04:05: Sodium 137, Potassium 4.2, Chloride 102, Carbon Dioxide 32.0, Anion Gap 3 L, BUN 23 H, Creatinine 0.65, Estim Creat Clear Calc 40.81, Est GFR (MDRD) Af Amer 115, Est GFR (MDRD) Non-Af 95, BUN/Creatinine Ratio 35.3 H, Glucose 120 H, Calcium 8.8 Micro: Microbiology 07/14/21 19:10 Blood Culture (Wb) - Left Forearm Blood Culture - Final No growth in 5 days. 07/14/21 19:00 Blood Culture (Wb) - Anticubital Left Blood Culture - Final No growth in 5 days. Physical Exam Const alert, oriented x3 and no apparent distress Orientation / Consciousness: lethargic Exam Limitations: no limitations HEENT head/scalp atraumatic and moist oral mucous membranes Head and Scalp: normocephalic Eyes PERRL, EOMs intact bilaterally and conjunctivae normal Neck no lymphadenopathy, supple, no JVD and no carotid bruits Resp Resp Narrative: diminished breath sounds bibasally, no wheezes, few crackles. now on oxygen by nasal canula at 5L. Cardio regular rhythm, S1 normal heart sound, S2 normal heart sound and no murmurs Cardio Narrative: tachycardic GI normal to inspection, nondistended, normoactive bowel sounds, soft to palpation, non-tender and non-distended Extremity normal to inspection, full ROM and no clubbing, cyanosis or edema Skin no rashes or lesions noted Neuro oriented x3, CN's II-XII intact bilaterally and moves all extremities Sensorium / Orientation: awake and alert Psych affect normal Psych Narrative: flat affect Assessment & Plan Assessment/Plan (1) COVID-19: (2) Acute hypoxemic respiratory failure: (3) Pneumonia due to 2019-nCoV: PLAN: #Acute hypoxic respiratory failure due to COVID 19 infection * now on oxygen by nasal canula, 5L * on PO dexamethasone * on breathing treatment with bronchodilators * titrate oxygen to maintain sats >90% * in cumulative negative balance by 2.85L * #Hypothyroidism: on synthroid. DVT prophylaxis: lovenox 30mg bid Charges/Coding Visit Charges Inpatient E&M: 54408 Subs Hosp L3
--- NOTE | 2021-07-21 17:07 | NURSING ---
report called to carmel Vargas
[2021-07-22] VITALS (14 sets, daily range): BP systolic 123–139; BP diastolic 68–88; PULSE 72–112; RESP 14–18; TEMP 36.3–37; O2SAT 94–97
[2021-07-22 08:53] LABS: Absolute Lymphocyte Count 0.94 X10^3/uL (0.83-4.51); Absolute Neutrophil Count 5.7 X10^3/uL (2.0-7.7); Basophil# 0.04 X10^3/uL; Basophil% 0.6 % (0-1); Eosinophil# 0.09 X10^3/uL; Eosinophils% 1.3 % (0-5); Hematocrit 40.7 % (37-47); Hemoglobin 13.3 g/dL (12.0-15.0); Lymphocyte # 0.94 X10^3/ul (0.83-4.51); Lymphocyte % 13.1 % (19-41); Mean Corp Hgb Conc 32.7 g/dL (32-36); Mean Corpuscular Hgb 30.8 pg (27.0-32.0); Mean Corpuscular Volume 94.2 fL (81-99); Mean Platelet Vol. 9.3 fl (6.2-12.0); Monocyte# 0.37 X10^3/uL; Monocyte% 5.1 % (0-10); NRBC Flagged by Analyzer 0 % (0-5); Neutrophil # 5.67 X10^3/uL (2.7-7.7); Neutrophil % 78.6 % (47-70); Platelet Count 302 K/mm3 (150-450); RBC Distribution Width CV 12.1 % (11.6-14.6); RBC Distribution Width SD 41.9 fl (35.1-43.9); Red Blood Count 4.32 M/mm3 (4.2-5.4); White Blood Count 7.2 K/mm3 (4.4-11.0)
[2021-07-22 09:11] LABS: Anion Gap 5 (5-15); BUN 17 mg/dL (7-18); BUN/Creat Ratio 27.2 RATIO (10-20); Calcium,Total 8.6 mg/dL (8.5-10.1); Chloride 101 mmol/L (98-107); Creatinine, Serum 0.63 mg/dL (0.55-1.02); EST Glomerular Filtration Rate 100 mL/min (>60); Est Glom Filt Rate - Afr Amer 120 mL/min (>60); Estimated Creatinine Clearance 40.81 ml/min; Glucose 102 mg/dL (74-106); Sodium Level 137 mmol/L (136-145)
[2021-07-22] MEDS: Cholecalciferol (VIT D3) 25 MCG TABLET (1,000 UNITS) 125 MCG PO (10:15)
[2021-07-22] MEDS: Multivitamins,Ther W-Minerals Tablet 1 TABLET PO (10:15)
[2021-07-22] MEDS: Enoxaparin 30 MG/0.3 ML Syringe SC ×2 (10:15→20:51)
[2021-07-22] MEDS: guaiFENesin 1,200 MG Tablet 1200 MG PO ×2 (10:15→20:51)
[2021-07-22] MEDS: Thyroid 60 MG Tablet 120 MG PO (10:15)
--- NOTE | 2021-07-22 14:14 | PN.HOSP_ITS ---
Subjective Subjective Patient seen and examined. She has no active complaints. She was transferred out of the ICU to PCU today. She denies any nausea, vomiting, chest pain or palpitations. Review of systems is otherwise negative. She has remained hemodynamically stable and is on 4L of oxygen. Objective Data Objective Data Vital Signs: Vital Signs Temp Pulse Resp BP Pulse Ox 97.4 F L 84 14 139/88 H 94 07/22/21 09:30 07/22/21 09:30 07/22/21 09:30 07/22/21 09:30 07/22/21 10:15 Oxygen Flow Rate (L/min) 3 Oxygen Delivery Method Nasal Cannula Weight: 174 lb 2.643 oz Body Mass Index (BMI) 34.4 Intake & Output: Intake and Output for Last 24 Hours 07/20/21 07/21/21 07/22/21 23:59 23:59 23:59 Intake Total 480 / 480 900 / 900 0 / 0 Output Total 800 / 800 1100 / 1500 700 / 700 Balance -320 / -320 -200 / -600 -700 / -700 Lab / Micro Data Result Diagrams: 07/22/21 08:36 07/22/21 08:36 Labs: Laboratory Results - last 24 hr 07/22/21 08:36: WBC 7.2, RBC 4.32, Hgb 13.3, Hct 40.7, MCV 94.2, MCH 30.8, MCHC 32.7, RDW Std Deviation 41.9, RDW Coeff of Amy 12.1, Plt Count 302, MPV 9.3, Immature Gran % (Auto) 1.300 H, Neut % (Auto) 78.6 H, Lymph % (Auto) 13.1 L, [place] % (Auto) 5.1, Eos % (Auto) 1.3, Baso % (Auto) 0.6, Absolute Neuts (auto) 5.7, Absolute Lymphs (auto) 0.94, Nucleated RBC % 0 07/22/21 08:36: Sodium 137, Potassium 4.0, Chloride 101, Carbon Dioxide 31.0, Anion Gap 5, BUN 17, Creatinine 0.63, Estim Creat Clear Calc 40.81, Est GFR (MDRD) Af Amer 120, Est GFR (MDRD) Non-Af 100, BUN/Creatinine Ratio 27.2 H, Glucose 102, Calcium 8.6 Micro: Microbiology 08/21/21 19:10 Blood Culture (Wb) - Left Forearm Blood Culture - Final No growth in 5 days. 07/14/21 19:00 Blood Culture (Wb) - Anticubital Left Blood Culture - Final No growth in 5 days. Physical Exam Const alert, oriented x3 and no apparent distress Orientation / Consciousness: lethargic Exam Limitations: no limitations HEENT head/scalp atraumatic and moist oral mucous membranes Head and Scalp: normocephalic Eyes PERRL, EOMs intact bilaterally and conjunctivae normal Neck no lymphadenopathy, supple, no JVD and no carotid bruits Resp Resp Narrative: diminished breath sounds bibasally, no wheezes, few crackles. now on oxygen by nasal canula at 4L. Cardio regular rate, regular rhythm, S1 normal heart sound, S2 normal heart sound and no murmurs Cardio Narrative: tachycardic GI normal to inspection, nondistended, normoactive bowel sounds, soft to palpation, non-tender and non-distended Extremity normal to inspection, full ROM and no clubbing, cyanosis or edema Skin no rashes or lesions noted Neuro oriented x3, CN's II-XII intact bilaterally and moves all extremities Sensorium / Orientation: awake and alert Psych affect normal Psych Narrative: flat affect Assessment & Plan Assessment/Plan (1) COVID-19: (2) Acute hypoxemic respiratory failure: (3) Pneumonia due to 2019-nCoV: PLAN: #Acute hypoxic respiratory failure due to COVID 19 infection * now on oxygen by nasal canula, 4L * on PO dexamethasone * on breathing treatment with bronchodilators * titrate oxygen to maintain sats >90% * in cumulative negative balance by 3.6L * #Hypothyroidism: on synthroid. DVT prophylaxis: lovenox 30mg bid Disposition: will need placement. FOr DC to [facility] once precert is obtained. Charges/Coding Visit Charges Inpatient E&M: 29635 Subs Hosp L2
[2021-07-23] VITALS (7 sets, daily range): BP systolic 131–145; BP diastolic 73–85; PULSE 74–103; RESP 18; TEMP 36.6–37.3; O2SAT 83–96
[2021-07-23 06:30] LABS: Absolute Lymphocyte Count 0.99 X10^3/uL (0.83-4.51); Absolute Neutrophil Count 5.2 X10^3/uL (2.0-7.7); Basophil# 0.04 X10^3/uL; Basophil% 0.6 % (0-1); Eosinophil# 0.08 X10^3/uL; Eosinophils% 1.2 % (0-5); Hematocrit 40.9 % (37-47); Hemoglobin 13.2 g/dL (12.0-15.0); Lymphocyte # 0.99 X10^3/ul (0.83-4.51); Lymphocyte % 14.7 % (19-41); Mean Corp Hgb Conc 32.3 g/dL (32-36); Mean Corpuscular Hgb 30.7 pg (27.0-32.0); Mean Corpuscular Volume 95.1 fL (81-99); Mean Platelet Vol. 9.8 fl (6.2-12.0); Monocyte# 0.35 X10^3/uL; Monocyte% 5.2 % (0-10); NRBC Flagged by Analyzer 0 % (0-5); Neutrophil # 5.21 X10^3/uL (2.7-7.7); Neutrophil % 77.3 % (47-70); Platelet Count 265 K/mm3 (150-450); RBC Distribution Width CV 12.3 % (11.6-14.6); RBC Distribution Width SD 42.4 fl (35.1-43.9); White Blood Count 6.7 K/mm3 (4.4-11.0)
[2021-07-23 06:58] LABS: Anion Gap 5 (5-15); BUN 16 mg/dL (7-18); BUN/Creat Ratio 28.5 RATIO (10-20); Calcium,Total 8.8 mg/dL (8.5-10.1); Chloride 102 mmol/L (98-107); Creatinine, Serum 0.56 mg/dL (0.55-1.02); EST Glomerular Filtration Rate 113 mL/min (>60); Est Glom Filt Rate - Afr Amer 137 mL/min (>60); Estimated Creatinine Clearance 40.81 ml/min; Glucose 110 mg/dL (74-106); Potassium 4.2 mmol/L (3.5-5.1); Sodium Level 134 mmol/L (136-145)
[2021-07-23] MEDS: guaiFENesin 1,200 MG Tablet 1200 MG PO ×2 (08:48→20:32)
[2021-07-23] MEDS: Enoxaparin 30 MG/0.3 ML Syringe SC ×2 (08:48→20:32)
[2021-07-23] MEDS: Multivitamins,Ther W-Minerals Tablet 1 TABLET PO (08:48)
--- NOTE | 2021-07-23 11:12 | CASEMGMT ---
MAL faxed all clinicals to [employer] to obtain insurance authorization to send patient to [facility] today. MAL also called and spoke with Aislinn at [facility] and she confirmed they can still take patient today. MAL will let her know when MAL gets pre-cert. Plan: [facility] pending insurance authorization. Hillary MORENO
[2021-07-23] MEDS: Thyroid 60 MG Tablet 120 MG PO (12:53)
[2021-07-23] MEDS: Cholecalciferol (VIT D3) 25 MCG TABLET (1,000 UNITS) 125 MCG PO (12:53)
--- NOTE | 2021-07-23 13:42 | PN.HOSP_ITS ---
Subjective Subjective Patient seen and examined. She still feels weak and lethargic. REview of systems is otherwise negative. She is now on 2L of oxygen by nasal canula. She has remained hemodynamically stable. Objective Data Objective Data Vital Signs: Vital Signs Temp Pulse Resp BP Pulse Ox 98.2 F 80 18 143/73 H 90 07/23/21 08:47 07/23/21 08:47 07/23/21 08:47 07/23/21 08:47 07/23/21 13:15 Oxygen Flow Rate (L/min) [ 2 AMBULATING with Oxygen #1] Oxygen Flow Rate (L/min) 5 Oxygen Delivery Method Nasal Cannula Weight: 171 lb 3.2 oz Body Mass Index (BMI) 34.4 Intake & Output: Intake and Output for Last 24 Hours 07/21/21 07/22/21 07/23/21 23:59 23:59 23:59 Intake Total 900 / 900 50 / 50 650 / 650 Output Total 1100 / 1500 1175 / 1175 400 / 400 Balance -200 / -600 -1125 / -1125 250 / 250 Lab / Micro Data Result Diagrams: 07/23/21 05:34 07/23/21 05:34 Labs: Laboratory Results - last 24 hr 07/23/21 05:34: WBC 6.7, RBC 4.30, Hgb 13.2, Hct 40.9, MCV 95.1, MCH 30.7, MCHC 32.3, RDW Std Deviation 42.4, RDW Coeff of Amy 12.3, Plt Count 265, MPV 9.8, Immature Gran % (Auto) 1.000 H, Neut % (Auto) 77.3 H, Lymph % (Auto) 14.7 L, [place] % (Auto) 5.2, Eos % (Auto) 1.2, Baso % (Auto) 0.6, Absolute Neuts (auto) 5.2, Absolute Lymphs (auto) 0.99, Nucleated RBC % 0 07/23/21 05:34: Sodium 134 L, Potassium 4.2, Chloride 102, Carbon Dioxide 27.0, Anion Gap 5, BUN 16, Creatinine 0.56, Estim Creat Clear Calc 40.81, Est GFR (MDRD) Af Amer 137, Est GFR (MDRD) Non-Af 113, BUN/Creatinine Ratio 28.5 H, Glucose 110 H, Calcium 8.8 Micro: Microbiology 07/14/21 19:10 Blood Culture (Wb) - Left Forearm Blood Culture - Final No growth in 5 days. 07/14/21 19:00 Blood Culture (Wb) - Anticubital Left Blood Culture - Final No growth in 5 days. Physical Exam Const alert, oriented x3 and no apparent distress Orientation / Consciousness: lethargic Exam Limitations: no limitations HEENT head/scalp atraumatic and moist oral mucous membranes Head and Scalp: normocephalic Eyes PERRL, EOMs intact bilaterally and conjunctivae normal Neck no lymphadenopathy, supple, no JVD and no carotid bruits Resp Resp Narrative: diminished breath sounds bibasally, no wheezes, few crackles. now on oxygen by nasal canula at 2L. Cardio regular rate, regular rhythm, S1 normal heart sound, S2 normal heart sound and no murmurs Cardio Narrative: tachycardic GI normal to inspection, nondistended, normoactive bowel sounds, soft to palpation, non-tender and non-distended Extremity normal to inspection, full ROM and no clubbing, cyanosis or edema Peripheral Pulses: Yes pulses 2+ throughout Skin no rashes or lesions noted Neuro oriented x3, CN's II-XII intact bilaterally and moves all extremities Sensorium / Orientation: awake and alert Psych Psych Narrative: flat affect Assessment & Plan Assessment/Plan (1) COVID-19: (2) Acute hypoxemic respiratory failure: (3) Pneumonia due to 2019-nCoV: PLAN: #Acute hypoxic respiratory failure due to COVID 19 infection * now on oxygen by nasal canula, 2L * has completed a 10 day course of dexamethasone. * on breathing treatment with bronchodilators * titrate oxygen to maintain sats >90% * in cumulative negative balance by 3.6L * #Hypothyroidism: on synthroid. DVT prophylaxis: lovenox 30mg bid Disposition: will need placement. FOr DC to [facility] once precert is obtained. Charges/Coding Visit Charges Inpatient E&M: 58510 Subs Hosp L2
--- NOTE | 2021-07-23 15:36 | CASEMGMT ---
MAL received a call from Brigid at [facility]. She approved patient for [facility]. MAL notified physician and Aislinn at [facility]. SW will also notify patient. Plan: d/c to [facility] under skilled level of care on a convalescent stay. Hillary MORENO
--- NOTE | 2021-07-23 15:49 | PCM.DC.SUM ---
Providers Date of Admission: 07/14/21 Primary Care Physician: Dr. Little Sullivan MD Consultations 07/14/21 23:09 Consult: Occupational Therapy Aides Teacher / Pulmonary Medicine Routine Consulting Provider: [place] Reason for Consult: Covid-19 EMERGENT Consult: No MD Notified: Yes Date Notified: 07/14/21 Time Notified: 20:21 Method of Notification: Text Reason For Visit: ACUTE HYPOXEMIC RESPIRATORY FAILURE Diagnosis Discharge Diagnosis (1) COVID-19: Status: Acute Code(s): U07.1 - COVID-19 (2) Acute hypoxemic respiratory failure: Status: Acute Code(s): J96.01 - Acute respiratory failure with hypoxia (3) Pneumonia due to 2019-nCoV: Status: Acute Code(s): U07.1 - COVID-19; J12.82 - Pneumonia due to coronavirus disease 2019 Medications at Discharge Home Medications thyroid (pork) 120 mg tablet 120 mg PO DAILY 01/19/19 cholecalciferol (vitamin D3) 125 mcg (5,000 unit) tablet 125 mcg PO DAILY 05/10/20 ghwkwezy-jfsoblg-pgel-lutein 1 tab PO DAILY 07/09/21 acetaminophen [Tylenol] 500 mg PO Q4H PRN PRN #0 tab 07/11/21 Hospital Course Operations None Procedures None Summary of Care Provided Minutes Spent on Discharge: 45 Hospital Course: Patient is a 70 y/o with a PMH significant for hypertension who was admitted via the ED on 07/14/2021 with a complaint of persistent shortness of breath. She had been admitted in the hospital on 07/09/2021 and discharged on 07/11/2021 with covid symptoms and discharged home because she was stable. SHe subsequently presented in the ED with worsening of her symptoms, with associated musle aches, chills and productive cough. She ws hypoxic in the ED and and was admitted and managed for acute hypoxic respirator failure due to COVID 19 infection. Chest x-ray showed worsening alveolar opacities and CT of the chest was negative for any evidence of PE. Her oxygen requirements gradually increased to 12 L of oxygen and then she was transitioned to BiPAP and subsequently AirVo. She was also placed on dexamethasone p.o. Patient was gradually weaned off of BiPAP in airflow and onto oxygen by nasal cannula. Her oxygen requirements gradually decreased to 2L of oxygen. She completed a course of decadron. She was discharged to a SNF on 07/23/2021. She is to follow up with her PCP in 1-2 weeks. Patient seen and examined prior to discharge. She still complained of weakness and lethargy. She had no other complaints and review of systems otherwise negative. She has remained hemodynamically stable. Physical Exam Const alert, oriented x3 and no apparent distress General Appearance: cooperative and comfortable Orientation / Consciousness: lethargic Exam Limitations: no limitations HEENT head/scalp atraumatic and moist oral mucous membranes Eyes PERRL, EOMs intact bilaterally and conjunctivae normal Neck no lymphadenopathy, supple, no JVD and no carotid bruits Resp Resp Narrative: diminished breath sounds bibasally, no wheezes, no crackles. now on oxygen by nasal canula at 2L. Cardio regular rate, regular rhythm, S1 normal heart sound, S2 normal heart sound and no murmurs Cardio Narrative: tachycardic GI normal to inspection, nondistended, normoactive bowel sounds, soft to palpation, non-tender and non-distended Extremity normal to inspection, full ROM and no clubbing, cyanosis or edema Skin no rashes or lesions noted Neuro oriented x3, CN's II-XII intact bilaterally and moves all extremities Sensorium / Orientation: awake and alert Psych affect normal Psych Narrative: flat affect Weight / BMI Weight Weight: 171 lb 3.2 oz Body Mass Index (BMI) 34.4 ABG / Lab / Microbiology Data Result Diagrams: 07/23/21 05:34 07/23/21 05:34 Laboratory: Laboratory Results - last 24 hr 07/23/21 05:34: WBC 6.7, RBC 4.30, Hgb 13.2, Hct 40.9, MCV 95.1, MCH 30.7, MCHC 32.3, RDW Std Deviation 42.4, RDW Coeff of Amy 12.3, Plt Count 265, MPV 9.8, Immature Gran % (Auto) 1.000 H, Neut % (Auto) 77.3 H, Lymph % (Auto) 14.7 L, [place] % (Auto) 5.2, Eos % (Auto) 1.2, Baso % (Auto) 0.6, Absolute Neuts (auto) 5.2, Absolute Lymphs (auto) 0.99, Nucleated RBC % 0 07/23/21 05:34: Sodium 134 L, Potassium 4.2, Chloride 102, Carbon Dioxide 27.0, Anion Gap 5, BUN 16, Creatinine 0.56, Estim Creat Clear Calc 40.81, Est GFR (MDRD) Af Amer 137, Est GFR (MDRD) Non-Af 113, BUN/Creatinine Ratio 28.5 H, Glucose 110 H, Calcium 8.8 Microbiology: Microbiology 07/14/21 19:10 Blood Culture (Wb) - Left Forearm Blood Culture - Final No growth in 5 days. 07/14/21 19:00 Blood Culture (Wb) - Anticubital Left Blood Culture - Final No growth in 5 days. D/C Instructions Discharge Diet: Low fat / Low cholesterol Discharge Activity: Return to Normal Activity Weight Bearing Status: Weight bearing as tolerated Call your doctor if you observe: Fever of 101 or Higher, Shortness of breath, Swelling in the ankles and Increased palpitations (irregular heartbeat) Meaningful Use Info Meaningful Use Diagnoses (Choose all that apply): None applicable Discharge Plan Admission Admit Date/Time: 07/14/21 20:24 Primary Reason for Your Visit: acute respiratory failure due to covid 19 pneumonia Attending Provider: Alpa Bowser Primary Care Provider: Little Sullivan Consulting Providers: [place] Instructions Patient Instructions: Coronavirus Disease 2019 (COVID-19): Overview, How COVID-19 Spreads Additional Instructions / Restrictions: to stay in quarantine till July 29, 2021 Discharge Orders/Prescriptions Prescriptions: Continued thyroid (pork) [[place] Thyroid] 120 mg tablet 120 mg PO DAILY RF: 0 cholecalciferol (vitamin D3) [Vitamin D3] 125 mcg (5,000 unit) tablet 125 mcg PO DAILY RF: 0 cinscbsn-ucsqzav-ojdg-lutein Tablet 1 tab PO DAILY RF: 0 acetaminophen [Tylenol] 325 mg Tablet 500 mg PO Q4H PRN PRN (Reason: Pain Score 1-10/Temp > 100.7 F) Qty: 0 RF: 0 Discontinued dexamethasone 4 mg Tablet 6 mg PO DAILY 7 Days Qty: 11 RF: 0 Referrals / Follow Up: Little Sullivan MD [Primary Care Provider] - Within 2 Weeks Disposition Disposition (needs filled in before D/C Order can be placed): [facility] Charges/Coding Visit Charges Inpatient E&M: 36924 Disch Hosp
--- NOTE | 2021-07-23 16:21 | TREXTCAR_ITS ---
Diet 07/14/21 23:09 Diet: Regular - General Food consistency:: Regular Liquid Consistency:: Regular/Thin Type of Dietary Supplement:: Ensure Enlive Diet Comments: 120 ml ensure enlive w/ meals tid Problem/Diagnosis (1) COVID-19: Status: Acute (2) Acute hypoxemic respiratory failure: Status: Acute (3) Pneumonia due to 2019-nCoV: Status: Acute Allergies/Procedures Done in Hospital Allergies No Known Allergies Allergy (Verified 07/14/21 17:24) Type of Care/Length of Stay Estimated LOS: Convalescent Care Less Than 30 days Type of Care Needed: Skilled Rehab Potential: Fair Prognosis: Fair Additional Orders/Day of Discharge Day of Discharge: 07/23/21 Dietary and Speech Recommendations Dietitian Recommendations/Changes: Continue Regular diet and 120ml ensure enlive TID with meals for additional calories/protein if consumed. Discharge Plan Admission Admit Date/Time: 07/14/21 20:24 Primary Reason for Your Visit: acute respiratory failure due to covid 19 pneumonia Attending Provider: Alpa Bowser Primary Care Provider: Little Sullivan Consulting Providers: [place] Instructions Patient Instructions: Coronavirus Disease 2019 (COVID-19): Overview, How COVID- 19 Spreads Additional Instructions / Restrictions: to stay in quarantine till July 29, 2021 Discharge Orders/Prescriptions Prescriptions: Continued thyroid (pork) [[place] Thyroid] 120 mg tablet 120 mg PO DAILY RF: 0 cholecalciferol (vitamin D3) [Vitamin D3] 125 mcg (5,000 unit) tablet 125 mcg PO DAILY RF: 0 vmklnmjx-sitwiul-yxyy-lutein Tablet 1 tab PO DAILY RF: 0 acetaminophen [Tylenol] 325 mg Tablet 500 mg PO Q4H PRN PRN (Reason: Pain Score 1-10/Temp > 100.7 F) Qty: 0 RF: 0 Discontinued dexamethasone 4 mg Tablet 6 mg PO DAILY 7 Days Qty: 11 RF: 0 Referrals / Follow Up: Little Sullivan MD [Primary Care Provider] - Within 2 Weeks Disposition Disposition (needs filled in before D/C Order can be placed): [facility] Facility
--- NOTE | 2021-07-23 17:05 | CASEMGMT ---
SW faxed orders to [facility]. Convalescent was completed on [facility]. RN called patient's daughter and notified her that she will be going to [facility] today. SW also spoke with patient and let her know she will be headed to [facility] today. Insulation Machine Operator will arrange transport. Plan: d/c to [facility] under skilled level of care on a convalescent stay. [facility] will transport. Hillary MORENO
--- NOTE | 2021-07-23 17:15 | NURSING ---
This RN returned a call to pt's daughter, Ivon Garcia back and left a voicemail with callback number.
[2021-07-23] MEDS: Acetaminophen 325 MG Tablet 650 MG PO (20:32)
== END 2021-07-23 21:45 | disposition skilled nursing facility (03) | DRG 177 ==
LOC: ED 18:07 → ICU 07-15 00:25 → PCU 07-22 03:32
PROVIDERS: Internal Medicine Critical Care Medicine; Admitting Provider Hospitalist; Emergency Provider Emergency Medicine; PCP Family Medicine; Visit Provider Student in an Organized Health Care Education/Training Program
DX: U07.1 COVID-19 (principal); J12.82 Pneumonia due to coronavirus disease 2019; J96.01 Acute respiratory failure with hypoxia; I16.1 Hypertensive emergency; Z87.891 Personal history of nicotine dependence; E66.9 Obesity, unspecified; Z99.81 Dependence on supplemental oxygen; Z68.34 Body mass index [BMI] 34.0-34.9, adult; E03.9 Hypothyroidism, unspecified; E87.6 Hypokalemia; F41.9 Anxiety disorder, unspecified; M81.0 Age-related osteoporosis without current pathological fracture; K76.0 Fatty (change of) liver, not elsewhere classified; Z79.899 Other long term (current) drug therapy
CPT/HCPCS: 36415; 71045; 71275; 80048; 80053; 83605; 84145; 84484; 85025; 87040; 94002; 94003; 94640; 94660; 97110; 97162; 97166; 97530; 97535; 99285; Q9967; A4216; J1940

== ENCOUNTER 2022-02-15 12:55 | Outpatient (CLI) | payer MEDICARE, SELFPAY ==
--- NOTE | 2022-02-15 13:01 | CT_ITS ---
CT of the right lower extremity without contrast INDICATION: Preop surgery. TECHNIQUE: Multiple thin section axial CT images of the right lower extremity were obtained through the hip joint, knee joint, and ankle without the administration of intravenous contrast and filmed in bone windows. Furthermore, multiple sagittal and coronal reconstructions were performed. Dose limiting techniques were utilized. FINDINGS: No abnormal soft tissue mass, lymphadenopathy, fluid collection. No acute fracture or dislocation. No significant right hip arthrosis. Moderate joint space narrowing and osteophyte formation of the knee joint consistent with moderate arthrosis. 3 cm bone infarct or enchondroma the distal shaft of the femur. No significant ankle arthrosis. IMPRESSION: Moderate right knee arthrosis before arthroplasty. Electronically Signed: Jairon Tucker MD at 7:56 EDT , CT/Extremity Lower without Contra
== END 2022-02-15 23:59 | disposition home or self-care (01) ==
PROVIDERS: PCP Family Medicine; Referring Provider Specialist; Visit Provider Specialist
DX: M21.161 Varus deformity, not elsewhere classified, right knee (principal); Z20.822 Contact with and (suspected) exposure to COVID-19
CPT/HCPCS: 73700; 87635; C9803; U0003; U0005

== ENCOUNTER 2022-04-29 12:00 | Outpatient (RCR) | payer MEDICARE, SELFPAY ==
--- NOTE | 2022-03-11 15:39 | HP.PTEVAL_ITS ---
Patient's Visit Information HORTENCIA SERRANO is a 71 year old F referred to Physical Therapy by Dorian Conn PA-C with a diagnosis of R TKA 02/22/22. Date of Evaluation: 03/11/22 Physical Therapist: Jay Morejon PT, ATC - Visit Plan Frequency: 2x /Week Duration: 4-6 Weeks Plan: R knee PROM/mobs, stretching and strengthening, balance and proprio, core strengthening, nustep, and HEP - Subjective DOS: 02/22/22. Pt reports she had a chronic Hx of R knee pain prior to this surgery. Pt reports she is frustrated at this time because her healing is taking longer than she expected. Pt reports her R TKA is more painful than she expected it to be. Pt reports she has had home health for the past couple weeks. Pt reports she needs to get back to work as soon as possible because she is needing the money. Pt reports she is still in a lot of pain today and has a lot of swelling present. 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 Pt reports she has stairs at home and must negotiate them one step at a time. Pt reports sleep difficulty secondary to pain. Pt denies tingling and numbness in L LE. Pt currently reports her pain at 1/10 pain at rest and 3/10 pain at worst. - Pain R knee pain Pain Intensity (Out of 10): 1 Pain Intensity Range: 3 - Objective Neuro: B LE sensation is WNL to light touch. B achilles reflex= 1/3. Girth at joint line: R 40 cm, L 36 cm. ROM: R knee 0-15-95, L knee 0-120. MMT: L knee flex= 23, ext= 27; R knee flex= 10, ext= 10 #F. Tu.42 - Balance/Special Test Scores Lower Extremity Functional Score: 40 - Goals Goal 1:: Decrease R knee pain x 50% to aid with sleep Goal Time Frame: 4-6 Weeks Goal 2:: Increase R knee ROM x 20 degrees to aid with restoring a more normalized gait pattern Goal Time Frame: 4-6 Weeks Goal 3:: Increase R knee flexion and extension strength x 5-10 #F to aid with stair negotiation Goal Time Frame: 4-6 Weeks Goal 4:: I with HEP Goal Time Frame: 4-6 Weeks - Rehabilitation Potential Physical Therapy Diagnosis: Pt has R knee pain, weakness, and limited ROM secondary to R TKA Rehabilitation Potential: Good - Anticipated Interventions Patient/Client Instruction: Educate patient on: Condition, Plan of Care For the Purpose of:: To improve self management Therapeutic Exercise to Include: Strength training, Endurance training, Balance training, Postural training, Gait and locomotor training, Passive ROM, Active ROM, Dynamic Lumbar Stabilization For the Purpose of:: To decrease pain, To increase ROM, To improve muscle performance and motor function Cryotherapy (ice pack, ice massage): Yes For the Purpose of:: To decrease pain Thank you for the opportunity to evaluate your patient. For Medicare and Medicare HMO plans, please review the plan of care and approve it. It will need to be FAXED BACK to us at [phone] for Medicare purposes. For Medicare only, by signing this I certify the plan of care. Please let me know if there are questions or concerns regarding this plan of care. Physician Signature: Date:
--- NOTE | 2022-04-29 12:59 | HP.PTDCSUM ---
It has been my pleasure to treat HORTENCIA SERRANO referred by Dorian Conn PA-C, with the diagnosis of R TKA 02/22/22 for a total of 5 visit(s). Discharge Date: Please see the following information for a summary of their discharge status. Subjective: Pt reports she continues to have pain that exists in R knee R knee pain Pain Intensity (Out of 10): 0 % Improvement: 85 Objective/Function: Pt reports pain ranges from 0-2/10. R knee Girth: 41.5 cm. MMT: flex= 30, ext= 27. ROM: 0-5-110. Pt is I with HEP Goal 1:: Decrease R knee pain x 50% to aid with sleep Goal Progress: Goal Met Goal 2:: Increase R knee ROM x 20 degrees to aid with restoring a more normalized gait pattern Goal Progress: Goal Met Goal 3:: Increase R knee flexion and extension strength x 5-10 #F to aid with stair negotiation Goal Progress: Goal Met Goal 4:: I with HEP Goal Progress: Goal Met Plan: R knee PROM/mobs, stretching and strengthening, balance and proprio, core strengthening, nustep, and HEP If there are questions or concerns regarding this patient's physical therapy, please feel free to call me at [phone]. Thank you for the referral of this patient. Sincerely, Jay Morejon, PT, ATC Balance/Gait/Functional tests - Balance/Special Test Scores Lower Extremity Functional Score: 54
== END 2022-04-29 13:45 | disposition home or self-care (01) ==
LOC: PT 12:00
PROVIDERS: PCP Family Medicine; Referring Provider Physician Assistant Surgical; Visit Provider Physician Assistant Surgical
DX: Z98.890 Other specified postprocedural states (principal); Z96.651 Presence of right artificial knee joint
CPT/HCPCS: 97110; 97140; 97161; 97164

== ENCOUNTER 2022-08-28 07:41 | Emergency (ER) | payer MEDICARE, SELFPAY ==
[2022-08-28 07:42] VITALS: BP 183/114; PULSE 89; RESP 14; TEMP 35.9; O2SAT 96; BMI 35.5
--- NOTE | 2022-08-28 08:07 | EX.ED.VIS.EY ---
HPI History of Present Illness Chief Complaint: Eye Problem Detail of Chief Complaint: Tearing from right eye Informant: patient Narrative Narrative: Patient presents with tearing from the right eye that started yesterday around 3 PM. Patient states she could not sleep all night because she was constantly tearing. Now she is complaining of some discomfort when she moves her eye. She denies any trauma to her eye. She denies foreign body sensation. She does have some photophobia. Patient had cataract surgery over a year ago bilaterally. She does not wear contacts. Patient denies fever or recent illness. [facility] Medical History (Updated 08/28/22 @ 09:[address] Christina Aponte DO) Acute hypoxemic respiratory failure Arthritis Bladder leak Breast lump in female Cataracts, bilateral Chronic bronchitis COPD (chronic obstructive pulmonary disease) Former smoker GERD (gastroesophageal reflux disease) High cholesterol History of pneumonia Hormone deficiency HTN (hypertension) Hypoglycemia Hypothyroid IBS (irritable bowel syndrome) Melanoma in situ of left lower leg Migraines Osteoarthritis Osteoporosis PCOS (polycystic ovarian syndrome) Skin cancer Vision problems Home Medications thyroid (pork) 120 mg tablet ([place] Thyroid) 120 mg PO DAILY thyroid 01/19/19 [History Last Taken 2 Weeks Ago ~06/25/21] cholecalciferol (vitamin D3) 125 mcg (5,000 unit) tablet (Vitamin D3) 125 mcg PO DAILY supplement 05/10/20 [History Last Taken 2 Weeks Ago ~06/25/21] nkglmurr-eupvzze-wemj-lutein tablet 1 tab PO DAILY supplement 07/09/21 [History Last Taken 2 Weeks Ago ~06/25/21] acetaminophen 325 mg tablet (Tylenol) 500 mg PO Q4H PRN PRN Pain Score 1-10/Temp > 100.7 F #0 tabs 07/11/21 [Rx Last Taken Unknown] Allergy/AdvReac Type Severity Reaction Status Date / Time No Known Allergies Allergy Verified 08/28/22 07:42 Family History Mother Cancer lung Arthritis Lung cancer Father Hypertension Arthritis Other Breast cancer Family history of breast cancer High cholesterol Ovarian cancer Thyroid disorder Surgical History History of melanoma excision LOWER DENTAL IMPLANTS S/P abdominoplasty S/P bunionectomy S/P hysterectomy s/p kyphoblasty S/P nasal septoplasty s/p right ovarian cystectomy Status post hernia repair Social History Smoking Status: Former smoker alcohol intake: current substance use type: does not use additional social history: DOES NOT USE ASPIRIN DOES NOT USE IBUPROFEN ROS ROS ED Review of Systems ROS Unobtainable: other Constitutional Constitutional ED: Reports lethargy; Denies chills, fever(s), sweats or weight loss Eyes Eyes: Reports blurry vision and other Details: Tearing right eye and right eye pain ; Denies change in vision or diplopia ENT ENT ED: Denies rhinorrhea or sore throat Cardiovascular Cardiovascular: Denies chest pain, orthopnea or racing heartbeat Respiratory/Chest Respiratory/Chest: Denies cough, dyspnea, dyspnea on exertion, orthopnea or sputum Gastrointestinal Gastrointestinal: Denies abdominal pain, diarrhea, nausea or vomiting Genitourinary Genitourinary ED: Denies dysuria, hematuria or urinary frequency Musculoskeletal Musculoskeletal: Denies arthralgias, back pain, myalgias or neck pain Integumentary Denies abscess, Abrasions or rash Neurologic Neurologic: Denies headache(s) or weakness Psychiatric Psychiatric: Denies anxiety, depression or suicidal thoughts Endocrine Endocrinology: Denies polydipsia, polyphagia or polyuria Hematologic/Lymphatic Hematologic/Lymphatic: Denies easy bleeding, easy bruising or lymphadenopathy Allergic/Immunologic Allergic/Immunologic ED: Denies mouth swelling, tongue swelling or urticaria EXAM Physical Exam Const Vital Signs: 08/28/22 07:42 Temperature 96.7 F L Temperature Source Temporal Pulse Rate 89 Respiratory Rate 14 Blood Pressure 183/114 H Blood Pressure Mean 137 Pulse Ox 96 Oxygen Delivery Method Room Air Positive well nourished and well developed General Appearance ED: well developed and NAD HEENT Reports TM's clear and moist mucous membranes normocephalic and atraumatic; Negative for trauma or tenderness Tympanic Membrane ED: Yes TM's clear Eyes PERRL and EOMs intact bilaterally Eyes Narrative: Mild conjunctival erythema to the right eye with some clear tearing noted. Extraocular muscle movement is normal but somewhat painful. Corneas clear. Pupils reactive bilaterally. General Eye ED: Negative for pale conjunctiva or scleral icterus Neck no lymphadenopathy, supple and no JVD General: Negative for tenderness Chest Wall inspection of chest normal and palpation of chest normal Chest: Negative for tenderness Resp normal respiratory effort and clear to auscultation bilaterally Effort and Inspection: Negative for respiratory distress or pain with movement Auscultation: Negative for rhonchi, wheezes or diminished lung sounds Cardio regular rate, regular rhythm, S1 normal heart sound, S2 normal heart sound and no murmurs Peripheral Pulses: pulses 2+ throughout GI normal to inspection, nondistended, normoactive bowel sounds, soft to palpation, non-tender, non-distended and no masses Back/Spine no CVA tenderness and no thoracic nor lumbar tenderness Extremity normal to inspection General Extremety ED: Negative for edema General Extremity: Negative for edema Neuro oriented x3, CN's II-XII intact bilaterally, no sensory deficits noted and gait normal Sensorium / Orientation: awake, alert, oriented to person, oriented to place and oriented to time Motor Exam: strength 5/5 throughout and strength abnormal Psych mental status grossly normal Skin no rashes or lesions noted and no wounds MDM MDM MDM Narrative Medical decision making narrative: Patient had a visual acuity performed on exam and she was 20/30 bilaterally. Patient had the eyelids everted and there were no foreign bodies noted. I did place tetracaine in the right eye and checked her eye pressure which was 22. I stained her eye with fluorescein and I do not appreciate any corneal abrasions. At this point I discussed case with Dr. Sung at the [facility]. Dr. Sung will see the patient this morning for an exam. At this point I was asked to hold off on antibiotic eyedrops until the gear keeper. My suspicion is she likely has a conjunctivitis. Lab Data Attestation: I reviewed the patient's lab results. Discharge Plan Triage Chief Complaint: Eye Problem ED Provider: Christina Aponte Dx/Rx/DC Orders Clinical Impression: Acute conjunctivitis, right eye, Acute right eye pain Instructions: ED Conjunctivitis, Nonspecific Prescriptions: No Action thyroid (pork) [[place] Thyroid] 120 mg tablet 120 mg PO DAILY cholecalciferol (vitamin D3) [Vitamin D3] 125 mcg (5,000 unit) tablet 125 mcg PO DAILY riymttza-ocqhkfl-uiza-lutein Tablet 1 tab PO DAILY acetaminophen [Tylenol] 325 mg Tablet 500 mg PO Q4H PRN PRN (Reason: Pain Score 1-10/Temp > 100.7 F) Qty: 0 0RF Primary Care Provider: Little Sullivan Referrals: Little Sullivan MD [Primary Care Provider] - Graham Sung MD [Med Staff - Active Staff] - As soon as possible Disposition Disposition: Home, Self Care
[2022-08-28] MEDS: Tetracaine 0.5% Ophthalmic Bottle 1 DRP RIGHT EYE (08:54)
[2022-08-28 09:08] VITALS: BP 124/66; PULSE 72; RESP 16; O2SAT 97
== END 2022-08-28 09:10 | disposition home or self-care (01) ==
PROVIDERS: Emergency Provider Emergency Medicine; PCP Family Medicine; Visit Provider Emergency Medicine
DX: H57.11 Ocular pain, right eye (principal); J44.9 Chronic obstructive pulmonary disease, unspecified; H10.31 Unspecified acute conjunctivitis, right eye; H53.149 Visual discomfort, unspecified; E78.00 Pure hypercholesterolemia, unspecified; Z87.891 Personal history of nicotine dependence; I10 Essential (primary) hypertension; Z98.41 Cataract extraction status, right eye; Z98.42 Cataract extraction status, left eye
CPT/HCPCS: 99283

== ENCOUNTER → 2023-01-07 | Outpatient (CLI) | payer MEDICARE, SELFPAY ==
--- NOTE | 2023-01-07 14:22 | RAD_ITS ---
INDICATION: COUGH EXAMINATION/TECHNIQUE: X-RAY - XR Chest 2 Views COMPARISON: July 14, 2021. FINDINGS: LINES/DEVICES: None. LUNGS: No consolidation, edema or effusion. No pneumothorax. MEDIASTINUM AND CARDIOVASCULAR STRUCTURES: Cardiac silhouette not enlarged. Central airways and mediastinal contour are unremarkable. BONES AND SOFT TISSUES: Degenerative vertebral changes. RAD/Chest PA and Lateral IMPRESSION: No radiographic evidence of acute cardiopulmonary disease. Electronically Signed: Bhavesh Freedman DO at 23:56 EST Reading Location ID and State: [facility] / [place] Tel [phone], Service support ,
== END | disposition home or self-care (01) ==
LOC: MTRAD 14:21
PROVIDERS: PCP Family Medicine; Referring Provider Family Medicine; Visit Provider Family Medicine
DX: R05.9 Cough, unspecified (principal)
CPT/HCPCS: 71046

== ENCOUNTER → 2023-01-09 | Outpatient (CLI) | payer MEDICARE, SELFPAY ==
[2023-01-09 18:21] LABS: T4 Free Direct 0.62 ng/dL (0.76-1.46); Thyroid Stim Hormone (TSH) 5.29 uIU/mL (0.358-3.74)
== END | disposition home or self-care (01) ==
LOC: BFHLAB 15:58
PROVIDERS: PCP Family Medicine; Visit Provider Family Medicine
DX: E03.9 Hypothyroidism, unspecified (principal)
CPT/HCPCS: 36415; 84439; 84443

== ENCOUNTER 2023-01-29 07:39 | Day surgery (SDC) | payer MEDICARE, SELFPAY ==
[2023-01-29] VITALS (7 sets, daily range): BP systolic 102–176; BP diastolic 71–95; PULSE 74–104; RESP 16–18; TEMP 36.4–36.7; O2SAT 92–98; BMI 39.0
[2023-01-29] MEDS: Lactated Ringers 1,000 ML 15 ML IV (08:13)
--- NOTE | 2023-01-29 08:27 | HP.PCM_ITS ---
History and Physical Date of Admission: 01/29/23 Date of Service:? 01/08/23 MR#: [id number] Acct: [id number] Name:HORTENCIA MCCLELLAN Rep #: [id number] : 1950 ? ? Provider: Dr. Tammie Ayala MD Age/Sex:? 72/F ? ? [place] [facility]: Signed Intake Vital Signs ? 08/28/2207:42 01/08/2309:05 Height 5 ft 2 in 5 ft 2 in Weight: 194 lb 3.636 oz 1952 lb BMI 35.5 357.0 BP 183/114 H 166/91 H Blood Pressure Location ? Rt brachial Position ? Sitting Respiration 14 17 Pulse 89 86 Pulse Source ? Monitor Temp 96.7 F L 97.5 F L Temp Source Temporal Temporal Pulse Oximetry (%) 96 94 Oxygen Delivery Method ? room air Intake Visit Reasons:?BARRETTS ESOPHAGUS Chief Complaint: tolentino esphagus Is patient in pain?: No Allergies No Known Allergies Allergy (Verified 01/08/23 09:07) Medications thyroid (pork) 120 mg tablet ([place] Thyroid) 120 mg PO DAILY thyroid 01/19/19 [History Confirmed 01/08/23] cholecalciferol (vitamin D3) 125 mcg (5,000 unit) tablet (Vitamin D3) 125 mcg PO DAILY supplement 05/10/20 [History Confirmed 01/08/23] palwgjjh-zdyxcgi-jphf-lutein tablet 1 tab PO DAILY supplement 07/09/21 [History Confirmed 01/08/23] acetaminophen 325 mg tablet (Tylenol) 500 mg PO Q4H PRN PRN Pain Score 1-10/Temp > 100.7 F #0 tabs 07/11/21 [Rx Confirmed 01/08/23] sucralfate 1 gram tablet 1 g PO TID #21 tabs 01/08/23 [Rx Confirmed 01/08/23] PFSH Medical History?(Updated 01/09/23 @ 08:[address] Tammie Ayala MD) Acute hypoxemic respiratory failure Arthritis Tolentino esophagus Bladder leak Breast lump in female Cataracts, bilateral Chronic bronchitis COPD (chronic obstructive pulmonary disease) Epigastric pain Former smoker GERD (gastroesophageal reflux disease) High cholesterol History of pneumonia Hormone deficiency HTN (hypertension) Hypoglycemia Hypothyroid IBS (irritable bowel syndrome) Melanoma in situ of left lower leg Migraines Osteoarthritis Osteoporosis PCOS (polycystic ovarian syndrome) Skin cancer Vision problems Surgical History? History of melanoma excision LOWER DENTAL IMPLANTS S/P abdominoplasty S/P bunionectomy S/P hysterectomy s/p kyphoblasty S/P nasal septoplasty s/p right ovarian cystectomy Status post hernia repair Family History? Mother Cancer ?? ? lung Arthritis Lung cancerFather Hypertension ArthritisOther Breast cancer Family history of breast cancer High cholesterol Ovarian cancer Thyroid disorder Social History? Smoking Status:? Former smoker alcohol intake:? current substance use type:? does not use additional social history:? DOES NOT USE ASPIRIN DOES NOT USE IBUPROFEN HPI HPI HPI: 72-year-old female presents for EGD due to Tolentino's.? Patient states she had Tolentino's for greater than 10 years.? Currently patient is not on any PPI or H2 panda.? Patient states previously she was on brand-name Nexium and did well with that however she got switched to the generic Nexium and had side effects of leg cramping, not feeling well.? Patient states that her previous doctor was upset that she was not taking any medication however patient states it does not agree with her.? Patient has been previously on Prilosec and had side effects of that medication as well.? Patient states that she has noticed increased discomfort in the epigastric region as well as a cough over the last 9 months.? Patient's last colonoscopy was 2016 which was normal recommend follow-up in 10 years. ROS General General: Yes weight change; No appetite, fatigue, colon cancer, breast cancer or weakness HEENT HEENT: Yes eye surgery; No difficulty swallowing, eye injury, swollen glands or hoarseness Endo Endocrine: Yes thyroid disease; No diabetes mellitus, thyroid cancer, Hair loss, heat intolerance or cold intolerance Skin Skin: No rash or changing moles Musc Musculoskeletal: Yes arthritis; No back problems, rheumatoid arthritis, gout or joint pain Cardio Cardiovascular: Yes high blood pressure; No murmur, pacemaker, heart disease, atrial fibrillation, heart attack, heart stent, palpitations, shortness of breat with exertion or chest pain Psych Psychiatric: No depression, anxiety or hearing voices Resp Respiratory: No shortness of breath, No sleep apnea, Yes cough, No COPD, No asthma, No emphysema and No wheezing Gastro Gastrointestinal: No abdominal pain, No nausea or vomiting, No diarrhea, Yes constipation, No blood in stool, Yes acid reflux, Yes hemorrhoids, No ulcers, No gallbladder problem and No black,tarry stools Dc Hematologic: No blood thinners, No blood disorders, No bleeding, No anemia and No blood clots Neuro Neurologic: No system reviewed and no additional complaints, except as documented, No as per HPI, No abnormal gait, No abnormal hearing, No abnormal movements, No abnormal speech, No behavioral changes, No burning sensations, No confusion, No convulsions, No disequilibrium, No dizziness, No localized weakness, No frequent falls, No headache(s), No lack of coordination, No loss of vision, No memory loss, No numbness, No other visual disturbances, No radicular pain, No restless legs, No sensory deficit, No syncope, Yes tingling, No tremor(s), No weakness and No other Exam Const General: cooperative, healthy appearing and no acute distress [facility] Head: normal to inspection Resp Effort & Inspection: normal respiratory effort Cardio Rate: regular rate GI Inspection: non-distended Palpation: soft, no guarding and tender in the epigastrum; with no rebound tenderness Skin General: no rashes or lesions noted Neuro General: patient oriented x3 Extrem General: no clubbing, cyanosis or edema Psych Affect: normal affect Assessment and Plan Assessment and Plan (1) Tolentino esophagus: ?Status:?Acute (2) Epigastric pain: ?Status:?Acute ? ? ? Medications: New sucralfate ?? take lunch, dinner and HS 1 g? PO TID 21 tabs 1RF ? ? Plan Discussed with patient the importance of taking either a PPI or H2 panda as increasing inflammation/irritation to the lower esophagus can make further changes to those cells including carcinoma.? Patient states her father did have esophageal cancer as well.? Patient was agreeable to buying the Nexium name brand [id number] as likely this would not be covered by insurance and patient states the generic does not work for her also she did have side effects from the Prilosec so not sure that Protonix would not cause the same issues. Try to obtain other operative report?pathology is stating that she has Ba rrett's. I have discussed the above with the patient. I have offered the patient esophagogastroduodenoscopy for evaluation. I have explained the risks/benefits of the procedure and described the procedure.? I have discussed the risks with the patient, including but not limited to:? infection, bleeding, perforation of the GI tract requiring emergency surgery, inability to complete the procedure, injury to any internal organs, complications of anesthesia, etc. - the patient understands and agrees to proceed. I have answered all the patient's questions to the patient's satisfaction and the patient has no further questions. Tammie Ayala M.D. Pager: [phone] [facility] [address] [place] [address], [address] [place] [address] Office: [phone] Coding Level of Care Code Off vis,new,level 4 Diagnoses Tolentino esophagus? K22.70 Epigastric pain? R10.13 01/09/23 0855 <Electronically signed by Tammie Ayala MD> Date Tammie Ayala MD
--- NOTE | 2023-01-29 09:21 | OP.EGD_ITS ---
Patient Name: Carito Cleveland Procedure Date: 01/29/2023 8:58 AM Date of : 1950 Age: 72 Procedure: Upper GI endoscopy Indications: Heartburn, Follow-up of Bernardo's esophagus Providers: Tammie Ayala MD Medicines: Monitored Anesthesia Care Patient Profile: This is a 72 year old female. Complications: No immediate complications. Procedure: Pre-Anesthesia Assessment: - Prior to the procedure, a History and Physical was performed, and patient medications and allergies were reviewed. The patient's tolerance of previous anesthesia was also reviewed. The risks and benefits of the procedure and the sedation options and risks were discussed with the patient. All questions were answered, and informed consent was obtained. Prior Anticoagulants: The patient has taken no previous anticoagulant or antiplatelet agents. ASA Grade Assessment: Per anesthesia. After reviewing the risks and benefits, the patient was deemed in satisfactory condition to undergo the procedure. After obtaining informed consent, the endoscope was passed under direct vision. Throughout the procedure, the patient's blood pressure, pulse, and oxygen saturations were monitored continuously. The gastroscope was introduced through the mouth, and advanced to the second part of duodenum. The upper GI endoscopy was accomplished without difficulty. The patient tolerated the procedure well. Scope In: 9:07:55 AM Scope Out: 9:14:38 AM Total Procedure Duration Time 0 hours 6 minutes 43 seconds Findings: The Z-line was irregular and was found 36 cm from the incisors. Biopsies were taken with a cold forceps for histology. The cardia and gastric fundus were normal on retroflexion. Patchy mildly erythematous mucosa without active bleeding and with no stigmata of bleeding was found in the duodenal bulb. The second portion of the duodenum was normal. Mildly erythematous mucosa without bleeding was found in the gastric antrum. Biopsies were taken with a cold forceps for histology. Biopsies were taken with a cold forceps for Helicobacter pylori cultures. Impression: - Z-line irregular, 36 cm from the incisors. Biopsied. - Erythematous duodenopathy. - Normal second portion of the duodenum. - Erythematous mucosa in the antrum. Biopsied. Recommendation: - Await pathology results. - Discharge patient to home. - Resume previous diet. - Continue present medications. Procedure Code(s): --- Professional --- 42452, PT, Esophagogastroduodenoscopy, flexible, transoral; with biopsy, single or multiple Diagnosis Code(s): --- Professional --- K22.8, Other specified diseases of esophagus K31.89, Other diseases of stomach and duodenum K22.70, Bernardo's esophagus without dysplasia R12, Heartburn CPT copyright 2017 [employer]. All rights reserved. The codes documented in this report are preliminary and upon reservation clerk review may be revised to meet current compliance requirements. MD Tammie He MD 01/29/2023 9:21:06 AM This report has been signed electronically. Number of Addenda: 0 Note Initiated On: 01/29/2023 8:58 AM
--- NOTE | 2023-01-29 09:21 | OP.CCLET_ITS ---
01/29/2023 Little Sullivan [place] [id number] [place] [address] Re : Upper GI endoscopy procedure for Carito Cleveland Dear Dr. Sullivan This procedure was performed on Sunday, January 29, 2023. My impressions and recommendations are as follows: Impressions : - Z-line irregular, 36 cm from the incisors. Biopsied. - Erythematous duodenopathy. - Normal second portion of the duodenum. - Erythematous mucosa in the antrum. Biopsied. Recommendations : - Await pathology results. - Discharge patient to home. - Resume previous diet. - Continue present medications. My findings are described in the full procedure note, which is enclosed. If I can be of further assistance, please feel free to contact me at Doctor phone number(s): , Work: . Sincerely, MD Tammie He MD 01/29/2023 9:21:06 AM This report has been signed electronically.
--- NOTE | 2023-01-29 09:30 | IMM_PTH ---
PATIENT: HORTENCIA SERRANO LOC: EN U#:[id number] AGE/SX: 72/F ROOM: RE01/29/[address]: Dr. Tammie Ayala MD : 1950 BED: DIS: 01/29/2023 SPEC #: [id number] RECD: 01/29/23 13:22 STATUS: STEPHAN REMali #: [id number] DIANN: 01/29/23 09:[address]: Tammie Ayala DEPT: IMMUNOHISTOCHEMISTRY RECD BY: Millie Lawson ENTERED: 01/29/23 13:22 SP TYPE: IMMUNO OTHR DR: Dr. Little Sullivan MD Tissues: A - Stomach, NOS Procedures: H Pylori (initial) PHYSICIAN & INSTITUTION [place] [id number] SPECIMEN INFORMATION: Tissue Source: A ? Antrum biopsy Clinical Info: Bernardo?s esophagus, epigastric pain Specimen Number: [id number] CPT code: 69056 METHODOLOGY: Deparaffinized sections of prefer/formalin-fixed tissue or PAP/DQ stained slides are incubated with monoclonal/polyclonal antibodies/oligonucleotide probes. Localization is made via biotin free immunoperoxidase method. Appropriate controls are performed and reacted as expected. Results on target cell population are indicated in the following table: RESULTS: ANTIBODY / CLONE RESULT Block A H Pylori (polyclonal) negative These tests were developed and their performance characteristics determined by [facility]. They may not have been cleared or approved by the U.S. Food and Drug Administration. The FDA has determined that such clearance or approval is not necessary. The above immunohistochemical/dualISH markers are ordered and reviewed by the Pathologist. INTERPRETATION: A. Antrum, biopsy: Negative for Helicobacter pylori organisms. MARNIE:phoenix 01/30/2023
--- NOTE | 2023-01-29 09:30 | EGD_PTH ---
PATIENT: HORTENCIA SERRANO LOC: EN U#:[id number] AGE/SX: 72/F ROOM: RE01/29/[address]: Dr. Tammie Ayala MD : 1950 BED: DIS: 01/29/2023 SPEC #: [id number] RECD: 01/29/23 10:55 STATUS: STEPHAN AYANA #: [id number] DIANN: 01/29/23 09:[address]: Tammie Ayala DEPT: SURGICAL PATHOLOGY RECD BY: Peter Art ENTERED: 01/29/23 11:13 SP TYPE: EGD BIOPSY OT DR: Dr. Little Sullivan MD Tissues: A - Gastric mucous membrane B - Gastric mucous membrane Procedures: Special Stain Group II Surgery Specimen Level IV Alcian Blue/PAS (control) HEADER OPERATION[place] [place] PRE-OP DIAGNOSIS: Bernardo?s esophagus, epigastric pain TISSUE SUBMITTED: A - Antrum biopsy for H. pylori and histology, B - Gastroesophageal junction biopsy MICROSCOPIC DIAGNOSIS A. Antrum, biopsy: Mild gastritis. See microscopic description and comment. B. Gastroesophageal junction, biopsy: Fragments of gastroesophageal mucosa with chronic inflammation. Intestinal metaplasia (goblet cell metaplasia) not identified. See comment. SJ:rg 01/30/2023 COMMENT A. The results of immunohistochemistry for Helicobacter pylori will be reported separately ([id number]). B. Alcian blue/PAS stain with matched control is used in the evaluation of the specimen. MICROSCOPIC DESCRIPTION Slides are reviewed. A. The specimen shows fragments of gastric mucosa with chronic inflammatory cell infiltrates in the lamina propria consisting of lymphocytes and plasma cells, consistent with mild chronic gastritis. GROSS DESCRIPTION A - Received in fixative is one container labeled with the patient's name and designated biopsy antrum. The specimen consists of one irregular fragment of light rob soft tissue that measures 0.3 x 0.3 x 0.1 cm. The specimen is totally submitted in one cassette. B - Received in fixative is one container labeled with the patient's name and designated biopsy GE junction. The specimen consists of multiple irregular fragments of light rob soft tissue that in aggregate measure 0.6 x 0.3 x 0.1 cm. The specimen is totally submitted in one cassette. / MARNIE:phoenix 01/29/2023 TC:3 CPT: 21126 x2, 38670
== END 2023-01-29 10:18 | disposition home or self-care (01) ==
LOC: EN 07:40 → AC 07:40
PROVIDERS: PCP Family Medicine; Referring Provider Family Medicine; Visit Provider Surgery
PROC: 0DJ08ZZ Inspection of Upper Intestinal Tract, Via Natural or Artificial Opening Endoscopic (ICD-10-PCS; CPT 43235; principal; 2023-01-29 09:25)
DX: K29.70 Gastritis, unspecified, without bleeding (principal); Z87.891 Personal history of nicotine dependence; I10 Essential (primary) hypertension; K31.89 Other diseases of stomach and duodenum; Z87.19 Personal history of other diseases of the digestive system; K21.9 Gastro-esophageal reflux disease without esophagitis; E78.00 Pure hypercholesterolemia, unspecified; E03.9 Hypothyroidism, unspecified; Z79.899 Other long term (current) drug therapy
CPT/HCPCS: 43239; 88305; 88313; 88342; J7120; J2405

== ENCOUNTER → 2023-03-12 | Outpatient (CLI) | payer MEDICARE, SELFPAY ==
[2023-03-12 11:08] LABS: Thyroid Stim Hormone (TSH) 1.43 uIU/mL (0.358-3.74)
== END | disposition home or self-care (01) ==
LOC: MTLAB 08:49
PROVIDERS: PCP Family Medicine; Referring Provider Family Medicine; Visit Provider Family Medicine
DX: E03.9 Hypothyroidism, unspecified (principal)
CPT/HCPCS: 36415; 84439; 84443

== ENCOUNTER → 2023-05-19 | Outpatient (CLI) | payer MEDICARE, SELFPAY ==
--- NOTE | 2023-05-19 13:12 | RAD_ITS ---
STUDY: X-RAY - LUMBAR SPINE REASON FOR EXAM: Female, 72 years old. Pain for 2 months. History of a fall. TECHNIQUE: 2 view(s) of the lumbar spine were obtained. COMPARISON: None FINDINGS: Normal lumbar lordosis. There is no substantial scoliosis. There is a normal alignment of the vertebrae. There is diffuse demineralization with multi-level endplate spondylosis. There is multi-level degenerative disc disease with multi-level disc space narrowing. There is no evidence of acute fracture or loss of vertebral axial height. The soft tissue structures are unremarkable. RAD/Lumbar Spine 2 or 3 Views IMPRESSION: Osteopenia and degenerative changes of the lumbar spine. Electronically Signed: Harsh Michelle DO at 23:10 EDT ,
== END | disposition home or self-care (01) ==
LOC: RAD 13:03
PROVIDERS: PCP Family Medicine; Referring Provider Anesthesiology Pain Medicine; Visit Provider Anesthesiology Pain Medicine
DX: M85.88 Other specified disorders of bone density and structure, other site (principal); M47.816 Spondylosis without myelopathy or radiculopathy, lumbar region
CPT/HCPCS: 72100

== ENCOUNTER 2023-10-27 11:15 | Emergency (ER) | payer MEDICARE, SELFPAY ==
[2023-10-27 11:16] VITALS: BP 157/111; PULSE 81; RESP 18; TEMP 36.7; O2SAT 99; BMI 37.8
[2023-10-27 12:11] VITALS: O2SAT 97
--- NOTE | 2023-10-27 12:12 | RAD_ITS ---
STUDY: X-RAY CHEST REASON FOR EXAM: Female, 73 years old. Dyspnea, pedal edema, A-fib TECHNIQUE: Single AP portable view of the chest. COMPARISON: Comparison is made with prior study of January 07, 2023. FINDINGS: EKG electrodes are seen. Stable elevation of the right hemidiaphragm. Stable mild increased markings at the lung bases suggestive of scarring. There is no demonstrated pleural abnormality. Normal size heart. Normal mediastinum and daniel. Normal visualized pulmonary arteries. There is atherosclerotic tortuosity of the aortic arch and descending thoracic aorta. There are diffuse degenerative changes of the visualized thoracic spine. Normal visualized ribs, clavicles, and shoulders. There is no demonstrated abnormality of the visualized soft tissue structures of the upper abdomen. RAD/Chest 1 View (Portable) IMPRESSION: Stable mild increased markings at the lung bases suggestive of scarring. Electronically Signed: Jeyson Acosta MD at 12:37 EST ,
[2023-10-27] MEDS: dilTIAZem 25 MG/5 ML Vial 20 MG IV BOLUS (12:32)
[2023-10-27 12:54] LABS: Absolute Lymphocyte Count 2.39 X10^3/uL (0.83-4.51); Absolute Neutrophil Count 6.1 X10^3/uL (2.0-7.7); Basophil# 0.11 X10^3/uL; Basophil% 1.2 % (0-1); Eosinophil# 0.13 X10^3/uL; Eosinophils% 1.4 % (0-5); Hematocrit 49.1 % (37-47); Lymphocyte # 2.39 X10^3/ul (0.83-4.51); Lymphocyte % 25.1 % (19-41); Mean Corp Hgb Conc 32.6 g/dL (32-36); Mean Corpuscular Hgb 30.6 pg (27.0-32.0); Mean Corpuscular Volume 93.9 fL (81-99); Mean Platelet Vol. 10.2 fl (6.2-12.0); Monocyte% 7.4 % (0-10); NRBC Flagged by Analyzer 0 % (0-5); Neutrophil # 6.14 X10^3/uL (2.7-7.7); Neutrophil % 64.4 % (47-70); Platelet Count 208 K/mm3 (150-450); RBC Distribution Width CV 12.6 % (11.6-14.6); RBC Distribution Width SD 43.2 fl (35.1-43.9); Red Blood Count 5.23 M/mm3 (4.2-5.4); White Blood Count 9.5 K/mm3 (4.4-11.0)
--- NOTE | 2023-10-27 12:57 | EDS_ITS ---
HPI History of Present Illness Chief Complaint: Shortness of Breath Detail of Chief Complaint: Palpitations and shortness of breath Informant: patient Onset/Context/Timing Onset: Weeks (If not longer) Context: Sudden Onset Timing: Intermittent Quality: Patient reports shortness of breath with exertion from baseline. She also. Current Severity: Mild Maximum Severity: Moderate Worsened by: Activity Relieved by: Nothing Associated Symptoms Associated Symptoms: None Narrative Narrative: Patient is a 73-year-old woman who is seen by Dr. Sullivan. She has not been compliant with her blood pressure medicine for several years. She was concerned about the risk factors of taking his blood pressure meds. She presents now with dyspnea with activity for the past several weeks. She is also had chest palpitations for the past several weeks. She was unaware that her heart rate was fast and irregular. She is on thyroid medicine, pork 125 mg p.o. daily. The only other medicine the patient is compliant with is the minocycline for her rosacea. Patient denies fever, chills night sweats. Patient denies headache, visual, ocular auditory symptoms. Patient denies trouble with speech or swallowing. Patient denies paresthesia, anesthesia or motor weakness. Presently patient has no complaint of chest discomfort or palpitations. She does report mild shortness of breath is noted to be tachypneic and breathing faster than the 18 times reported by triage. Patient denies orthopnea. She sleeps with 1 pillow. She also denies pedal. Prior similar symptoms: No Recent Illness/Hospitalization: No PFSH PFS Medical History Acute hypoxemic respiratory failure Arthritis Bernardo esophagus Bladder leak Breast lump in female Cancer Cataracts, bilateral Chronic bronchitis COPD (chronic obstructive pulmonary disease) Epigastric pain Former smoker Former smoker Gastric reflux GERD (gastroesophageal reflux disease) High cholesterol History of IBS History of pneumonia History of rheumatic fever History of stress test Hormone deficiency HTN (hypertension) Hypoglycemia Hypothyroid IBS (irritable bowel syndrome) Melanoma in situ of left lower leg Migraines Osteoarthritis Osteoporosis PCOS (polycystic ovarian syndrome) Post-menopausal Skin cancer Thyroid disease Vision problems Wears dentures Home Medications thyroid (pork) 120 mg tablet ([place] Thyroid) 120 mg PO DAILY thyroid 01/19/19 [History Last Taken 01/28/23] cholecalciferol (vitamin D3) 125 mcg (5,000 unit) tablet (Vitamin D3) 125 mcg PO DAILY supplement 05/10/20 [History Last Taken 01/28/23] ahgwsqnm-uqcirga-qnof-lutein tablet 1 tab PO DAILY supplement 07/09/21 [History Last Taken 01/28/23] acetaminophen 325 mg tablet (Tylenol) 500 mg (1.5385 x 325 mg) PO Q4H PRN PRN Pain Score 1-10/Temp > 100.7 F #0 tabs 07/11/21 [Rx Last Taken 01/28/23] apixaban 5 mg tablet (Eliquis) 5 mg PO BID #60 tabs 10/27/23 [Rx Last Taken Unknown] hydrochlorothiazide 12.5 mg capsule 12.5 mg PO DAILY #30 caps 10/27/23 [Rx Last Taken Unknown] lisinopril 10 mg tablet 10 mg PO DAILY #30 tabs 10/27/23 [Rx Last Taken Unknown] minocycline 50 mg capsule 50 mg PO DAILY PRN PRN ROSACEA 10/27/23 [History Last Taken Unknown] Allergy/AdvReac Type Severity Reaction Status Date / Time No Known Allergies Allergy Verified 10/27/23 11:16 Family History Mother Cancer lung Arthritis Lung cancer Father Hypertension Arthritis Other Breast cancer Family history of breast cancer High cholesterol Ovarian cancer Thyroid disorder Surgical History History of melanoma excision Hx of bilateral cataract extraction Hx of melanoma excision Hx of total knee replacement LOWER DENTAL IMPLANTS S/P abdominoplasty S/P bunionectomy S/P hysterectomy s/p kyphoblasty S/P nasal septoplasty s/p right ovarian cystectomy Status post hernia repair Social History Smoking Status: Former smoker alcohol intake: current substance use type: does not use additional social history: DOES NOT USE ASPIRIN DOES NOT USE IBUPROFEN ROS ROS ED Constitutional Constitutional ED: Denies chills, fever(s), subjective or sweats Eyes Eyes: Denies blurry vision, change in vision or diplopia ENT ENT ED: Denies ear pain, rhinorrhea or sore throat Cardiovascular Cardiovascular: Reports palpitations; Denies chest pain, orthopnea or paroxysmal nocturnal dyspnea Respiratory/Chest Respiratory/Chest: Reports dyspnea on exertion; Denies cough, dyspnea, orthopnea or paroxysmal nocturnal dyspnea Gastrointestinal Gastrointestinal: Denies abdominal pain, nausea or vomiting Genitourinary Genitourinary ED: Denies dysuria, hematuria or urinary frequency Musculoskeletal Musculoskeletal: Denies arthralgias, myalgias or neck pain Integumentary Denies rash Neurologic Neurologic: Denies headache(s), paresthesias or weakness Endocrine Endocrinology: Denies cold intolerance, heat intolerance, polydipsia or polyuria Hematologic/Lymphatic Hematologic/Lymphatic: Reports systems reviewed and no addt'l complaints, except as documented EXAM Physical Exam Const Vital Signs: 10/27/23 11:16 10/27/23 12:11 10/27/23 13:19 Temperature 98.1 F 97.5 F L Temperature Source Temporal Temporal Pulse Rate 81 84 Respiratory Rate 18 18 Respiratory Effort Short of Breath Labored Respiratory Depth Normal Respiratory Pattern Tachypnea Blood Pressure 157/111 H 160/103 H Blood Pressure Mean 126 122 Pulse Ox 99 96 Oxygen Delivery Method Room Air Room Air Room Air Positive well nourished and well developed General Appearance ED: well developed and NAD; Negative for cyanotic, diaphoretic or pallor HEENT Reports moist mucous membranes HEENT Narrative: Head is atraumatic and normocephalic. Ears are normal. Nares are patent. Posterior pharynx is unremarkable. Eyes PERRL and EOMs intact bilaterally General Eye ED: Negative for pale conjunctiva or scleral icterus Neck no lymphadenopathy, supple and no JVD Chest Wall inspection of chest normal and palpation of chest normal Resp normal respiratory effort and clear to auscultation bilaterally Cardio no murmurs Rate: tachycardic Rhythm: abnormal rhythm irregularly irregular GI normal to inspection, nondistended, normoactive bowel sounds, non-tender, non- distended and no masses; Negative for hepatosplenomegaly Back/Spine no CVA tenderness Extremity normal to inspection General Extremety ED: Yes edema; Negative for tenderness General Extremity: edema Neuro oriented x3, CN's II-XII intact bilaterally and no sensory deficits noted Sensorium / Orientation: alert Motor Exam: strength 5/5 throughout Psych mental status grossly normal Skin no rashes or lesions noted, no wounds and skin turgor normal General Skin Exam: elasticity normal; Negative for pallor MDM MDM MDM Narrative Medical decision making narrative: Patient presents with chest discomfort, palpitations and dyspnea [place] exertion. Will obtain EKG to determine rhythm and rule out acute ischemic changes. Also troponin, CBC to assess H&H. Electrolyte panel to assess renal function to determine what anticoagulant is appropriate for patient. Patient was treated with 20 mg of Cardizem. Her heart rate slowed to the 8090 range. She also received p.o. diltiazem 30 mg. She was anticoagulated with Eliquis. Patient's blood pressure has been elevated. Will start on antihypertensive med, since she is not always compliant we will start her on lisinopril and hydrochlorothiazide. Based on laboratory studies there is no evidence of endorgan dysfunction. History & Record Review Discussion w/independent historian: Patient Lab Data Attestation: I reviewed the patient's lab results. Lab results narrative: Documented under the MDM portion of the chart. Labs: Laboratory Results - last 24 hr 10/27/23 12:35 WBC 9.5 RBC 5.23 Hgb 16.0 H Hct 49.1 H MCV 93.9 MCH 30.6 MCHC 32.6 RDW Std Deviation 43.2 RDW Coeff of Amy 12.6 Plt Count 208 MPV 10.2 Immature Gran % (Auto) 0.500 Neut % (Auto) 64.4 Lymph % (Auto) 25.1 [place] % (Auto) 7.4 Eos % (Auto) 1.4 Baso % (Auto) 1.2 H Absolute Neuts (auto) 6.1 Absolute Lymphs (auto) 2.39 Nucleated RBC % 0 Sodium 139 Potassium 3.9 Chloride 105 Carbon Dioxide 26.0 Anion Gap 8 BUN 13 Creatinine 0.82 Estim Creat Clear Calc 47.61 Est GFR (MDRD) Af Amer 88 Est GFR (MDRD) Non-Af 73 BUN/Creatinine Ratio 15.9 Glucose 93 Calcium 9.5 Troponin I High Sens 14 B-Natriuretic Peptide 197.4 H Radiography Chest X-Ray - ED: 1 View (Independently reviewed interpreted by me as negative for any acute process. Cardiac silhouette and size are normal. Lung parenchyma is unremarkable is no effusion. Perihilar regions normal. [place] structures are unremarkable. 12:27) Diagnostic Testing: Clinical Impression(s) from Imaging Studies Chest X-Ray 10/27/23 12:12 IMPRESSION: Stable mild increased markings at the lung bases suggestive of scarring. Electronically Signed: Jeyson Acosta MD at 12:37 EST , Treatment and Re-Evaluation :: Spoke with Ann at Dr. Medrano's office. Once patient calls they will arrange for urgent follow-up. Discharge Plan Triage Chief Complaint: Shortness of Breath ED Provider: Fer Chandler Dx/Rx/DC Orders Clinical Impression: Atrial fibrillation, new onset, Bernardo esophagus, Elevated blood pressure reading with diagnosis of hypertension Instructions: ED AFIB, ED High Blood Pressure Hypertension Prescriptions: New lisinopril 10 mg tablet 10 mg PO DAILY Qty: 30 0RF hydrochlorothiazide 12.5 mg capsule 12.5 mg PO DAILY Qty: 30 0RF Eliquis 5 mg tablet 5 mg PO BID Qty: 60 0RF No Action thyroid (pork) [[place] Thyroid] 120 mg tablet 120 mg PO DAILY cholecalciferol (vitamin D3) [Vitamin D3] 125 mcg (5,000 unit) tablet 125 mcg PO DAILY njnzfild-jgkfiwe-kjrs-lutein Tablet 1 tab PO DAILY acetaminophen [Tylenol] 325 mg Tablet 500 mg PO Q4H PRN PRN (Reason: Pain Score 1-10/Temp > 100.7 F) Qty: 0 0RF minocycline 50 mg capsule 50 mg PO DAILY PRN PRN (Reason: ROSACEA ) Primary Care Provider: Little Sullivan Referrals: Toi Carmen MD [Med Staff - Active Staff] - As soon as possible Little Sullivan MD [Primary Care Provider] - Disposition Disposition: Home, Self Care
[2023-10-27 13:12] LABS: Anion Gap 8 (5-15); BUN 13 mg/dL (7-18); BUN/Creat Ratio 15.9 RATIO (10-20); Calcium,Total 9.5 mg/dL (8.5-10.1); Chloride 105 mmol/L (98-107); Creatinine, Serum 0.82 mg/dL (0.55-1.02); EST Glomerular Filtration Rate 73 mL/min (>60); Est Glom Filt Rate - Afr Amer 88 mL/min (>60); Estimated Creatinine Clearance 47.61 ml/min; Glucose 93 mg/dL (74-106); Potassium 3.9 mmol/L (3.5-5.1); Sodium Level 139 mmol/L (136-145); Troponin-I HS 14 pg/mL (3.0-54.0)
[2023-10-27 13:14] LABS: BNP,B-Type NATRIURETIC PEPTIDE 197.4 pg/mL (0-100)
[2023-10-27 13:19] VITALS: BP 160/103; PULSE 84; RESP 18; TEMP 36.4; O2SAT 96
[2023-10-27] MEDS: dilTIAZem 30 MG Tablet PO (14:41)
[2023-10-27] MEDS: APIXABAN 5 MG TABLET PO (14:41)
[2023-10-27 15:30] VITALS: BP 168/95; PULSE 90; RESP 18; O2SAT 99
== END 2023-10-27 15:31 | disposition home or self-care (01) ==
PROVIDERS: Emergency Provider Emergency Medicine; PCP Family Medicine; Visit Provider Emergency Medicine
DX: I48.91 Unspecified atrial fibrillation (principal); J44.9 Chronic obstructive pulmonary disease, unspecified; E78.00 Pure hypercholesterolemia, unspecified; R00.2 Palpitations; L71.9 Rosacea, unspecified; Z87.891 Personal history of nicotine dependence; I10 Essential (primary) hypertension; K22.70 Barrett's esophagus without dysplasia; Z91.158 Patient's noncompliance with renal dialysis for other reason; Z79.01 Long term (current) use of anticoagulants; Z79.899 Other long term (current) drug therapy; R06.02 Shortness of breath
CPT/HCPCS: 71045; 80048; 83880; 84484; 85025; 93005; 96374; 99284; A4216

== ENCOUNTER → 2023-12-10 | Outpatient (CLI) | payer MEDICARE, SELFPAY ==
--- NOTE | 2023-12-10 06:25 | ECHOD_ITS ---
Reason For Study: AFib Procedure This was a 2D Doppler, Color Flow transthoracic echocardiogram. Exam performed in department. Left Ventricle Normal LV size. Left ventricular systolic function is normal. The estimated ejection fraction is 60 %. No regional wall motion abnormalities noted. Right Ventricle Normal RV size. Normal systolic function. Atria Normal left atrium. Normal right atrium. Mitral Valve Normal mitral valve. Mild (1+) eccentric mitral valve insufficiency. Tricuspid Valve Normal tricuspid valve. Mild tricuspid valve insufficiency. Pulmonary artery systolic pressure is 27 mmHg. Aortic Valve Trisinus/trileaflet aortic valve. Mild focal aortic valve calcification. Pulmonic Valve Normal pulmonic valve. Great Vessels Normal aortic root. The pulmonary artery is normal size. Normal inferior vena cava. Pericardium/Pleural No pericardial effusion. MMode/2D Measurements & Calculations LVIDd: 4.4 cm IVSd: 1.5 cm Ao root diam: 3.3 cm LVIDs: 3.0 cm LVPWd: 1.1 cm LA dimension: 4.0 cm RVDd: 3.7 cm FS: 32.3 % LAV(MOD-bp): 66.2 ml LVAd ap4: 27.2 cm2 SV(MOD-sp4): 47.3 ml LAV(MOD-bp) Indexed: 34.6 ml/m2 LVLd ap4: 7.5 cm LAV(MOD-sp2): 78.8 ml EDV(MOD-sp4): 81.9 ml LAV(MOD-sp4): 50.5 ml EDV(sp4-el): 84.2 ml LVAs ap4: 16.3 cm2 LVLs ap4: 6.7 cm ESV(MOD-sp4): 34.6 ml ESV(sp4-el): 33.4 ml EF(MOD-sp4): 57.8 % EF(sp4-el): 60.3 % SV(sp4-el): 50.8 ml LA A4 area: 19.6 cm2 RA A4 area: 16.9 cm2 TAPSE: 1.7 cm Time Measurements MV dec time: 0.16 sec Doppler Measurements & Calculations MV E max mary: 94.7 cm/sec MV V2 max: 112.0 cm/sec Ao V2 max: 115.4 cm/sec MV max P.0 mmHg Ao max P.4 mmHg MV V2 mean: 58.1 cm/sec Ao V2 mean: 78.6 cm/sec MV mean P.7 mmHg Ao mean P.9 mmHg MV V2 VTI: 27.2 cm Ao V2 VTI: 21.8 cm AV (velocity ratio): 0.65 LV V1 max: 81.8 cm/sec MR max mary: 535.6 cm/sec PA V2 max: 72.3 cm/sec LV V1 max P.7 mmHg MR max P.8 mmHg LV V1 mean P.5 mmHg LV V1 mean: 59.2 cm/sec LV V1 VTI: 14.3 cm TR max mary: 246.2 cm/sec TR max P.2 mmHg ECHO/Echo Complete Interpretation Summary Normal LV size. Left ventricular systolic function is normal. The estimated ejection fraction is 60 %. Pulmonary artery systolic pressure is 27 mmHg. Mild (1+) eccentric mitral valve insufficiency. Ordering Physician: Toi Carmen Referring Physician: Little Sullivan Performed By: Tristan Young RCS
--- OUTSIDE RECORDS SUMMARY | 2023-12-10 06:27 | XMS RPT_ITS | CCD ---
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 Name Role Phone AUSTYN REINOSO DO Primary Care Physician Austyn Reinoso DO Primary Care Provider AUSTYN REINOSO Primary Care Unavailable Medications Current Medications Medication Drug Class(es) Dates Sig (Normalized) Sig (Original) ascorbic acid 500 mg oral tablet (1 source) Vitamin C Start: 07-02-2019 Vitamin C 500 mg oral tablet Dose : 500 mg = 1 tab(s), Oral, qDay, # 30 tab(s), 0 Refill(s) Start Date: 07/02/19 Status: Ordered esomeprazole 40 mg oral delayed release capsule (1 source) Start: 07-02-2019 esomeprazole 40 mg oral delayed release capsule Dose : 40 mg = 1 cap(s), Oral, qDayAC, 0 Refill(s) Start Date: 07/02/19 Status: Ordered Multiple Vitamins oral capsule (1 source) Start: 07-02-2019 take 1 capsule by mouth once daily Multiple Vitamins oral capsule Dose = 1 cap(s), Oral, Daily, 0 Refill(s) Start Date: 07/02/19 Status: Ordered thyroid (residential) 120 mg oral tablet (1 source) Start: 07-02-2019 Purchase Thyroid 120 mg oral tablet Dose : 120 mg = 1 tab(s), Oral, qDay, # 30 tab(s), 0 Refill(s) Start Date: 07/02/19 Status: Ordered Vitamin B Complex oral capsule (1 source) Start: 07-02-2019 take 1 capsule by mouth once daily Vitamin B Complex oral capsule Dose = 1 cap(s), Oral, Daily, 0 Refill(s) Start Date: 07/02/19 Status: Ordered vitamin E 400 intl units oral capsule (1 source) Start: 07-02-2019 vitamin E 400 intl units oral capsule Dose : 400 International_Unit = 1 cap(s), Oral, Daily, 0 Refill(s) Start Date: 07/02/19 Status: Ordered Results Test Name Value Interpretation Reference Range Facil ity Encounters Encounter Date Encounter Type Care Provider Facility Start: 09-10-2023 End: 09-10-2023 ambulatory [facility] Facility:[facility] Start: 02-08-2022 End: 02-08-2022 Patient encounter procedure MARIANGEL OLSON PA-C [facility] Start: 10-09-2006 Documentation procedure Amarjit gamble Mitul Adams Work Phone: [facility] Start: 10-09-2006 Historic EMR Wero Adams Work Phone: [facility] Start: 02-12-2006 Documentation procedure Jaycob S Minal DO Work Phone: [facility] Start: 02-12-2006 Historic EMR Jaycob tate DO Work Phone: [facility] Procedures Date Procedure Procedure Detail Performing Clinician Start: 10-08-2006 SURGICAL PATHOLOGY, CONVERTED Wero Mitul Adams Work Phone: Start: 02-11-2006 CYTOLOGY [employer] DEMONSTRATOR, CONVERTED Jaycob Fontaine DO Work Phone: Start: 11-24-2003 Catheterization of l eft heart MARIANGEL OLSON PA-C Plan of Treatment Date Care Activity Detail Author Start: 07-25-2023 Influenza vaccination Influenza Vacc ine (#1) [facility] Start: 11-24-2022 Advance Directive Discussion Advance Directive Discussion [facility] Start: 11-24-2022 Depression Assessment Depression Ass essment [facility] Start: 06-15-2022 Mammography Mammogram Screening [facility] Start: 06-18-2020 Diabetes Screening Diabetes Screenin g [facility] Start: 2014 Bone Density Screening Bone Density Screening [facility] Start: 2014 Pneumococcal Vaccine : 65+ (1 - PCV) Pneumococcal Vaccine: 65+ (1 - PCV) [facility] Start: 1999 Shingrix Vaccine (1 of 2) Shingrix V accine (1 of 2) [facility] Start: 1994 Cologuard (FIT-DNA) Cologuard (FIT-D NA) [facility] Start: [address] [facility] Start: 1994 Colorectal Cancer Screening Colorectal Cancer Screening [facility] Start: [address] COLONOGRAPHY [facility] Start: 1994 Fecal Occult Blood Fecal Occult Bloo d [facility] Start: 1994 Lipid 1996 panel - S aristeo or Plasma Lipid Screening [facility] Start: 1994 SIGMOIDOSCOPY SIGMOIDOSCOPY [facility] Start: 1968 Urine microalbumin profile DTa P,Tdap,Td Vaccine (1 - Tdap) [facility] Start: 1967 Hepatitis C Screening Hepatitis C Sc reening [facility] Start: 03-18-1950 Covid-19 Vaccine (#1) Covid-19 Vacci ne (#1) [facility] Payers Date Payer Category Payer Unknown [id number] Social History Date Type Detail Facility Start: 07-02-2019 Ex-smoker (finding) [facility] Evaluation + Plan note Note Date & Type Note Facility Evaluation + Plan note No data available for this section [facility] Hospital Discharge instructions Note Date & Type Note Facility Hospital Discharge instructions No data available for this section [facility] Summary Purpose Family History No Family History Records FoundNo Family History Records FoundNo Family History Records Found Advance Directives No Advanced Directives Records FoundNo Advanced Directives Records FoundNo Advanced Directives Records Found Additional Source Comments INFORMATION SOURCE (unrecogn ized section and content) DATE CREATED AUTHOR AUTHOR'S ORGANIZ ATION 05/01/2022 [facility] DATE CREATED AUTHOR AUTHOR'S CARLOS ALVARADO 09/12/2023 [facility] Source Comments (unrecognize d section and content) In the event this informatio n is protected by the Federal Confidentiality of Alcohol and Drug Abuse Patient Records regulations: The Federal rules restrict any use of the information to criminally investigate or prosecute any alcohol or drug abuse patient[facility] event this information is protected by the Federal Confidentiality of Alcohol and Drug Abuse Patient Records regulations: The Federal rules restrict any use of the information to criminally investigate or prosecute any alcohol or drug abuse patient.[facility] Care Teams (unrecognized sec tion and content) FOR RECORDS PERTAINING TO PATIENTS WHO ARE OR HAVE BEEN ENROLLED IN A CHEMICAL DEPENDENCY/SUBSTANCEABUSE PROGRAM, SOME INFORMATION MAY BE OMITTED. This clinical summary was aggregated from multiple sources. Caution should be exercised in using it in the provision of clinical care. This summary normalizes information from multiple sources, and as a consequence, information in this document may materially change the coding, format and clinical context of patient data. In addition, data may be omitted in some cases. CLINICAL DECISIONS SHOULD BE BASED ON THE PRIMARY CLINICAL RECORDS. [employer] provides no warranty or guarantee of the accuracy or completeness of information in this document.
--- NOTE | 2023-12-10 09:11 | STRESSREP ---
Stress Test Report Pharmacologic myocardial perfusion stress test. 73-year-old lady with a history of atrial fibrillation and abnormal EKG Resting EKG demonstrates atrial fibrillation with a rate of 75 bpm. Resting blood pressure is 150/90 mmHg. 0.4 mg of regadenoson was infused per usual protocol followed by rapid intravenous saline flush injection. Continuous EKG monitoring was performed. The maximum heart rate was 100 bpm which was 68% of max impacted heart rate the maximum workload was 1 metabolic equivalent. At rest there were no ST or T wave changes noted to suggest ischemia and at peak infusion nonspecific ST changes were noted which did not meet the criteria for ischemia. No clinical angina is noted. The final blood pressure was 158/92 mmHg. Myocardial perfusion protocol. 13.9 mCi of technetium 99m sestamibi was injected at rest. 0.4 mg of regadenoson was infused per usual protocol. At peak infusion 41.4 mCi of technetium 99m sestamibi was injected stress images were obtained stress and rest images were reconstructed and compared in the short axis vertical long and horizontal long axis. Gated images were also obtained. Perfusion SPECT analysis: Review of the stress images demonstrate normal uptake of tracer noted in all areas of the myocardium. The resting images similar demonstrated normal uptake of tracer noted in all areas of the myocardium. No areas of reversibility are noted to suggest ischemia and no previous infarct is noted. Gated SPECT analysis: The gated ejection fraction is 61%. Conclusion: Normal pharmacologic myocardial perfusion stress test. Preserved ejection fraction.
== END | disposition home or self-care (01) ==
LOC: CVS 06:24
PROVIDERS: PCP Family Medicine; Referring Provider Internal Medicine Cardiovascular Disease; Visit Provider Internal Medicine Cardiovascular Disease
DX: R94.31 Abnormal electrocardiogram [ECG] [EKG] (principal); I48.91 Unspecified atrial fibrillation
CPT/HCPCS: 78452; 93017; 93306; A9500; A4216; J2785

== ENCOUNTER → 2024-01-07 | Outpatient (CLI) | payer MEDICARE, SELFPAY ==
--- OUTSIDE RECORDS SUMMARY | 2024-01-07 09:35 | XMS RPT_ITS | CCD ---
Author Name Unknown Address [address] [place] [address] Organization [facility] Care Team Providers Care Assembler Truck Trailer Name Role Phone AUSTYN REINOSO DO Primary Care Physician Austyn Reinoso DO Primary Care Provider [phone] AUSTYN REINOSO Primary Care Unavailable Medications Current [...] Refill(s) Start Date: 07/02/19 Status: Ordered thyroid (care home) 120 mg oral tablet (1 source) Start: 07-02-2019 [place] Thyroid 120 mg oral tablet Dose : [...] Provider Facility Start: 09-10-2023 End: 09-10-2023 ambulatory [facility] Facility:[facility] Start: 02-08-2022 End: 02-08-2022 Patient encounter procedure MARIANGEL OLSON PA-C [facility] Start: 10-09-2006 Documentation procedure Amarjit gamble Mitul Adams Work Phone: [facility] Start: 10-09-2006 Historic EMR Wero Adams Work Phone: [facility] Start: 02-12-2006 Documentation procedure Jaycob S Minal DO Work Phone: [facility] Start: 02-12-2006 Historic EMR Jaycob tate DO Work Phone: [facility] Procedures Date Procedure Procedure Detail Performing Clinician Start: 10-08-2006 SURGICAL PATHOLOGY, CONVERTED Wero Mitul Adams Work Phone: Start: 02-11-2006 CYTOLOGY GREEN END MAN, CONVERTED Jaycob Fontaine DO Work Phone: Start: 11-24-2003 Catheterization of l eft heart MARIANGEL OLSON PA-C Plan of Treatment Date Care Activity Detail Author Start: 07-25-2023 Influenza vaccination Influenza Vacc ine (#1) [facility] Start: 11-24-2022 Advance Directive Discussion Advance Directive Discussion [facility] Start: 11-24-2022 Depression Assessment Depression Ass essment [facility] Start: 06-15-[address] [facility] Start: 06-18-2020 Diabetes Screening Diabetes Screenin g [facility] Start: 2014 Bone Density Screening Bone Density Screening [facility] Start: 2014 Pneumococcal Vaccine : 65+ (1 - PCV) Pneumococcal Vaccine: 65+ (1 - PCV) [facility] Start: 1999 Shingrix Vaccine (1 of 2) Shingrix V accine (1 of 2) [facility] Start: 1994 Cologuard (FIT-DNA) Cologuard (FIT-D NA) [facility] Start: 1994 Colonoscopy Colonoscopy [facility] Start: 1994 Colorectal Cancer Screening Colorectal Cancer Screening [facility] Start: [address] COLONOGRAPHY [facility] Start: 1994 Fecal Occult Blood Fecal Occult Bloo d [facility] Start: 1994 Lipid 1996 panel - S aristeo or Plasma Lipid Screening [facility] Start: 1994 SIGMOIDOSCOPY SIGMOIDOSCOPY [facility] Start: 1968 Urine microalbumin profile DTa P,Tdap,Td Vaccine (1 - Tdap) [facility] Start: 1967 Hepatitis C Screening Hepatitis C Sc reening [facility] Start: 03-18-1950 Covid-19 Vaccine (#1) Covid-19 Vacci ne (#1) [facility] Payers Date Payer Category Payer Unknown [id number] Social History Date Type Detail Facility Start: 07-02-2019 Ex-smoker (finding) [facility] Evaluation + Plan note Note Date & Type Note Facility Evaluation + Plan note No data available for this section [facility] Hospital Discharge instructions Note Date & Type Note Facility Hospital Discharge instructions No data available for this section [facility] Summary Purpose Family History No Family History Records FoundNo Family History Records FoundNo Family History Records Found Advance Directives No Advanced Directives Records FoundNo Advanced Directives Records FoundNo Advanced Directives Records Found Additional Source Comments INFORMATION SOURCE (unrecogn ized section and content) DATE CREATED AUTHOR AUTHOR'S ORGANIZ ATION 05/01/2022 [facility] DATE CREATED AUTHOR AUTHOR'S CARLOS ALVARADO 09/12/2023 [facility] Source Comments (unrecognize d section and content) In the event this informatio n is protected by the Federal Confidentiality of Alcohol and Drug Abuse Patient Records regulations: The Federal rules restrict any use of the information to criminally investigate or prosecute any alcohol or drug abuse patient.[facility] the event this information is protected by the Federal Confidentiality of Alcohol and Drug Abuse Patient Records regulations: The Federal rules restrict any use of the information to criminally investigate or prosecute any alcohol or drug abuse patient.[facility] Care Teams (unrecognized sec tion and [...] BE BASED ON THE PRIMARY CLINICAL RECORDS. [employer] provides no warranty or guarantee of the accuracy or completeness of information in this document.
[2024-01-07 10:39] LABS: Anion Gap 6 (5-15); BUN 22 mg/dL (7-18); BUN/Creat Ratio 21.6 RATIO (10-20); Calcium,Total 9.3 mg/dL (8.5-10.1); Chloride 106 mmol/L (98-107); Creatinine, Serum 1.02 mg/dL (0.55-1.02); EST Glomerular Filtration Rate 56 mL/min (>60); Est Glom Filt Rate - Afr Amer 68 mL/min (>60); Glucose 116 mg/dL (74-106); Sodium Level 140 mmol/L (136-145)
== END | disposition home or self-care (01) ==
PROVIDERS: PCP Family Medicine; Referring Provider Nurse Practitioner Gerontology; Visit Provider Nurse Practitioner Gerontology
DX: I48.91 Unspecified atrial fibrillation (principal)
CPT/HCPCS: 36415; 80048

== ENCOUNTER → 2024-01-14 | Outpatient (CLI) | payer MEDICARE, SELFPAY ==
--- OUTSIDE RECORDS SUMMARY | 2024-01-14 11:05 | XMS RPT_ITS | CCD ---
Author Name Unknown Address [address] [place] [address] Organization [facility] Care Team Providers Care Insurance Agency Manager Name Role Phone AUSTYN REINOSO DO Primary Care Physician [phone] Austyn Reinoso DO Primary Care Provider AUSTYN [...] Refill(s) Start Date: 07/02/19 Status: Ordered thyroid (halfway) 120 mg oral tablet (1 source) Start: 07-02-2019 [place] Thyroid 120 mg oral tablet Dose : [...] Provider Facility Start: 09-10-2023 End: 09-10-2023 ambulatory [facility] Facility:[facility] Start: 02-08-2022 End: 02-08-2022 Patient encounter procedure MARIANGEL OLSON PA-C [facility] Start: 10-09-2006 Documentation procedure Amarjit gamble Mitul Adams Work Phone: [facility] Start: 10-09-2006 Historic EMR Wero Adams Work Phone: [facility] Start: 02-12-2006 Documentation procedure Jaycob S Minal DO Work Phone: [facility] Start: 02-12-2006 Historic EMR Jaycob tate DO Work Phone: [facility] Procedures Date Procedure Procedure Detail Performing Clinician Start: 10-08-2006 SURGICAL PATHOLOGY, CONVERTED Wero Mitul Adams Work Phone: Start: 02-11-2006 CYTOLOGY HAZARDOUS WASTE TECHNICIAN, CONVERTED Jaycob Fontaine DO Work Phone: Start: 11-24-2003 Catheterization of l eft heart MARIANGEL OLSON PA-C Plan of Treatment Date Care Activity Detail Author Start: 07-25-2023 Influenza vaccination Influenza Vacc ine (#1) [facility] Start: 11-24-2022 Advance Directive Discussion Advance Directive Discussion [facility] Start: 11-24-2022 Depression Assessment Depression Ass essment [facility] Start: 06-15-2022 Mammography Mammogram Screening [facility] Start: 06-18-2020 Diabetes Screening Diabetes Screenin g [facility] Start: 2014 Bone Density Screening Bone Density Screening [facility] Start: 2014 Pneumococcal Vaccine : 65+ (1 - PCV) Pneumococcal Vaccine: 65+ (1 - PCV) [facility] Start: 1999 Shingrix Vaccine (1 of 2) Shingrix V accine (1 of 2) [facility] Start: 1994 Cologuard (FIT-DNA) Cologuard (FIT-D NA) [facility] Start: 1994 Colonoscopy Colonoscopy [facility] Start: 1994 Colorectal Cancer Screening Colorectal Cancer Screening [facility] Start: [address] COLONOGRAPHY [facility] Start: 1994 Fecal Occult Blood Fecal Occult Bloo d [facility] Start: 1994 Lipid 1996 panel - S aristeo or Plasma Lipid Screening [facility] Start: 1994 SIGMOIDOSCOPY SIGMOIDOSCOPY [facility] Start: 1968 Urine microalbumin profile DTa P,Tdap,Td Vaccine (1 - Tdap) [facility] Start: 1967 Hepatitis C Screening Hepatitis C Sc reening [facility] Start: 03-18-1950 Covid-19 Vaccine (#1) Covid-19 Vacci ne (#1) [facility] Clini c Payers Date Payer Category Payer Unknown [id number] Social History Date Type Detail Facility Start: 07-02-2019 Ex-smoker (finding) [facility] Evaluation + Plan note Note Date & Type Note Facility Evaluation + Plan note No data available for this section [facility] Hospital Discharge instructions Note Date & Type Note Facility Hospital Discharge instructions No data available for this section [facility] Summary Purpose Family History No Family History Records FoundNo Family History Records FoundNo Family History Records Found Advance Directives No Advanced Directives Records FoundNo Advanced Directives Records FoundNo Advanced Directives Records Found Additional Source Comments INFORMATION SOURCE (unrecogn ized section and content) DATE CREATED AUTHOR AUTHOR'S ORGANIZ ATION 05/01/2022 [facility] DATE CREATED AUTHOR AUTHOR'S CARLOS ALVARADO 09/12/2023 [facility] Source Comments (unrecognize d section and content) In the event this informatio n is protected by the Federal Confidentiality of Alcohol and Drug Abuse Patient Records regulations: The Federal rules restrict any use of the information to criminally investigate or prosecute any alcohol or drug abuse patient.[facility] the event this information is protected by the Federal Confidentiality of Alcohol and Drug Abuse Patient Records regulations: The Federal rules restrict any use of the information to criminally investigate or prosecute any alcohol or drug abuse patient.[facility] Care Teams (unrecognized sec tion and content) [...] BE BASED ON THE PRIMARY CLINICAL RECORDS. [employer] provides no warranty or guarantee of the accuracy or completeness of information in this document.
[2024-01-14 11:12] LABS: Absolute Lymphocyte Count 2.01 X10^3/uL (0.83-4.51); Absolute Neutrophil Count 3.5 X10^3/uL (2.0-7.7); Basophil% 1.6 % (0-1); Eosinophil# 0.16 X10^3/uL; Eosinophils% 2.5 % (0-5); Hematocrit 48.6 % (37-47); Hemoglobin 15.9 g/dL (12.0-15.0); Lymphocyte # 2.01 X10^3/ul (0.83-4.51); Lymphocyte % 31.8 % (19-41); Mean Corp Hgb Conc 32.7 g/dL (32-36); Mean Corpuscular Hgb 30.9 pg (27.0-32.0); Mean Corpuscular Volume 94.6 fL (81-99); Mean Platelet Vol. 10.2 fl (6.2-12.0); Monocyte# 0.53 X10^3/uL; Monocyte% 8.4 % (0-10); NRBC Flagged by Analyzer 0 % (0-5); Neutrophil # 3.51 X10^3/uL (2.7-7.7); Neutrophil % 55.4 % (47-70); Platelet Count 193 K/mm3 (150-450); RBC Distribution Width CV 12.2 % (11.6-14.6); RBC Distribution Width SD 42.5 fl (35.1-43.9); Red Blood Count 5.14 M/mm3 (4.2-5.4); White Blood Count 6.3 K/mm3 (4.4-11.0)
[2024-01-14 11:56] LABS: T4 Free Direct 0.74 ng/dL (0.76-1.46); Thyroid Stim Hormone (TSH) 0.42 uIU/mL (0.358-3.74); Vitamin B12 482 pg/mL (211-911); Vitamin D,25 Hydroxy 33.3 ng/mL
[2024-01-15 15:22] LABS: T3 Total - Triiodothyronine 1.29 ng/mL (0.6-1.81)
== END | disposition home or self-care (01) ==
LOC: LAB 10:46
PROVIDERS: PCP Family Medicine; Referring Provider Family Medicine; Visit Provider Family Medicine
DX: I10 Essential (primary) hypertension (principal); E03.9 Hypothyroidism, unspecified; E55.9 Vitamin D deficiency, unspecified
CPT/HCPCS: 36415; 82306; 82607; 84439; 84443; 84480; 85025

== ENCOUNTER → 2024-01-19 | Outpatient (CLI) | payer MEDICARE, SELFPAY ==
--- NOTE | 2024-01-19 12:34 | BI_ITS ---
MAMMOGRAPHY - BILATERAL SCREENING REASON FOR EXAM: Female, 73 years old. Routine annual screening examination. PERTINENT HISTORY: Non-contributory. TECHNIQUE: Digital bilateral breast anya (3D mammographic acquisition) in the CC and MLO projections. 2-D mediolateral oblique (MLO) and craniocaudad (CC) views of both breasts were obtained. CAD: Full Field Digital Mammography with Computer Added Detection was performed. COMPARISON: Comparison is made with prior study dated January 15, 2019. FINDINGS: Breast Composition: The breasts are almost entirely fatty. There are no dominant masses or suspicious calcifications. No other significant abnormalities are identified. There has been no significant change since the prior study. BI/SCRN MAMM (CAD)W/ANYA BILAT IMPRESSION: Stable bilateral screening mammogram. Yearly follow-up mammogram recommended. (A) ASSESSMENT CATEGORY: BIRADS Category 1: Negative. A letter regarding these results will be sent to the patient by the facility within 30 days. Approximately 10% of breast cancers are not detected by mammography. A normal mammogram should not delay biopsy of a clinically suspicious abnormality. [id number] Electronically Signed: Jeyson Acosta MD at 18:57 EST ,
--- OUTSIDE RECORDS SUMMARY | 2024-01-19 20:44 | XMS RPT_ITS | CCD ---
Author Name Unknown Address [address] [place] [address] Organization [facility] Care Team Providers Care Grinding Operator Name Role Phone AUSTYN REINOSO DO Primary Care Physician [phone] Austyn Reinoso DO Primary Care Provider AUSTYN [...] Refill(s) Start Date: 07/02/19 Status: Ordered thyroid (half-way) 120 mg oral tablet (1 source) Start: 07-02-2019 [place] Thyroid 120 mg oral tablet Dose : [...] Provider Facility Start: 09-10-2023 End: 09-10-2023 ambulatory [facility] Facility:[facility] Start: 02-08-2022 End: 02-08-2022 Patient encounter procedure MARIANGEL OLSON PA-C [facility] Start: 10-09-2006 Documentation procedure Amarjit gamble Mitul Adams Work Phone: [facility] Start: 10-09-2006 Historic EMR Wero Adams Work Phone: [facility] Start: 02-12-2006 Documentation procedure Jaycob S Minal DO Work Phone: [facility] Start: 02-12-2006 Historic EMR Jaycob tate DO Work Phone: [facility] Procedures Date Procedure Procedure Detail Performing Clinician Start: 10-08-2006 SURGICAL PATHOLOGY, CONVERTED Wero Mitul Adams Work Phone: Start: 02-11-2006 CYTOLOGY MANAGER INTERN, CONVERTED Jaycob Fontaine DO Work Phone: Start: 11-24-2003 Catheterization of l eft heart MARIANGEL OLSON PA-C Plan of Treatment Date Care Activity Detail Author Start: 07-25-2023 Influenza vaccination Influenza Vacc ine (#1) [facility] Start: 11-24-2022 Advance Directive Discussion Advance Directive Discussion [facility] Start: 11-24-2022 Depression Assessment Depression Ass essment [facility] Start: 06-15-2022 Mammography Mammogram Screening [facility] Start: 06-18-2020 Diabetes Screening Diabetes Screenin g [facility] Start: 2014 Bone Density Screening Bone Density Screening [facility] Start: 2014 Pneumococcal Vaccine : 65+ (1 - PCV) Pneumococcal Vaccine: 65+ (1 - PCV) [facility] Start: 1999 Shingrix Vaccine (1 of 2) Shingrix V accine (1 of 2) [facility] Start: 1994 Cologuard (FIT-DNA) Cologuard (FIT-D NA) [facility] Start: 1994 Colonoscopy Colonoscopy [facility] Start: 1994 Colorectal Cancer Screening Colorectal Cancer Screening [facility] Start: [address] COLONOGRAPHY [facility] Start: 1994 Fecal Occult Blood Fecal Occult Bloo d [facility] Start: 1994 Lipid 1996 panel - S aristeo or Plasma Lipid Screening [facility] Start: 1994 SIGMOIDOSCOPY SIGMOIDOSCOPY [facility] Start: 1968 Urine microalbumin profile DTa P,Tdap,Td Vaccine (1 - Tdap) [facility] Start: 1967 Hepatitis C Screening Hepatitis C Sc reening [facility] Start: 03-18-1950 Covid-19 Vaccine (#1) Covid-19 Vacci ne (#1) [facility] Clini c Payers Date Payer Category Payer Unknown [id number] Social History Date Type Detail Facility Start: 07-02-2019 Ex-smoker (finding) [facility] Evaluation + Plan note Note Date & Type Note Facility Evaluation + Plan note No data available for this section [facility] Hospital Discharge instructions Note Date & Type Note Facility Hospital Discharge instructions No data available for this section [facility] Summary Purpose Family History No Family History Records FoundNo Family History Records FoundNo Family History Records Found Advance Directives No Advanced Directives Records FoundNo Advanced Directives Records FoundNo Advanced Directives Records Found Additional Source Comments INFORMATION SOURCE (unrecogn ized section and content) DATE CREATED AUTHOR AUTHOR'S ORGANIZ ATION 05/01/2022 [facility] DATE CREATED AUTHOR AUTHOR'S CARLOS ALVARADO 09/12/2023 [facility] Source Comments (unrecognize d section and content) In the event this informatio n is protected by the Federal Confidentiality of Alcohol and Drug Abuse Patient Records regulations: The Federal rules restrict any use of the information to criminally investigate or prosecute any alcohol or drug abuse patient.[facility] the event this information is protected by the Federal Confidentiality of Alcohol and Drug Abuse Patient Records regulations: The Federal rules restrict any use of the information to criminally investigate or prosecute any alcohol or drug abuse patient.[facility] Care Teams (unrecognized sec tion and content) [...] BE BASED ON THE PRIMARY CLINICAL RECORDS. [employer] provides no warranty or guarantee of the accuracy or completeness of information in this document.
== END | disposition home or self-care (01) ==
LOC: OPBI 12:33
PROVIDERS: PCP Family Medicine; Referring Provider Family Medicine; Visit Provider Family Medicine
DX: Z12.31 Encounter for screening mammogram for malignant neoplasm of breast (principal)
CPT/HCPCS: 77063; 77067

== ENCOUNTER → 2024-02-02 | Outpatient (CLI) | payer MEDICARE, SELFPAY ==
--- OUTSIDE RECORDS SUMMARY | 2024-02-02 06:03 | XMS RPT_ITS | CCD ---
Author Name Unknown Address [address] [place] [address] Organization [facility] Care Team Providers Care Project/Production Manager Imaging Name Role Phone AUSTYN REINOSO DO Primary Care Physician [phone] Austyn Reinoso DO Primary Care Provider [phone] AUSTYN REINOSO Primary Care Unavailable Medications Current [...] Refill(s) Start Date: 07/02/19 Status: Ordered thyroid (group home) 120 mg oral tablet (1 source) Start: 07-02-2019 [place] Thyroid 120 mg oral tablet Dose : [...] Provider Facility Start: 09-10-2023 End: 09-10-2023 ambulatory [facility] Facility:[facility] Start: 02-08-2022 End: 02-08-2022 Patient encounter procedure MARIANGEL OLSON PA-C [facility] Start: 10-09-2006 Documentation procedure Amarjit gamble Mitul Adams Work Phone: [facility] Start: 10-09-2006 Historic EMR Wero Adams Work Phone: [facility] Start: 02-12-2006 Documentation procedure Jaycob S Minal DO Work Phone: [facility] Start: 02-12-2006 Historic EMR Jaycob tate DO Work Phone: [facility] Procedures Date Procedure Procedure Detail Performing Clinician Start: 10-08-2006 SURGICAL PATHOLOGY, CONVERTED Wero Mitul Adams Work Phone: Start: 02-11-2006 CYTOLOGY STRUCTURAL ENGINEERING PROJECT MANAGER, CONVERTED Jaycob Fontaine DO Work Phone: Start: 11-24-2003 Catheterization of l eft heart MARIANGEL OLSON PA-C Plan of Treatment Date Care Activity Detail Author Start: 07-25-2023 Influenza vaccination Influenza Vacc ine (#1) [facility] Start: 11-24-2022 Advance Directive Discussion Advance Directive Discussion [facility] Start: 11-24-2022 Depression Assessment Depression Ass essment [facility] Start: 06-15-2022 Mammography Mammogram Screening [facility] Start: 06-18-2020 Diabetes Screening Diabetes Screenin g [facility] Start: 2014 Bone Density Screening Bone Density Screening [facility] Start: 2014 Pneumococcal Vaccine : 65+ (1 - PCV) Pneumococcal Vaccine: 65+ (1 - PCV) [facility] Start: 1999 Shingrix Vaccine (1 of 2) Shingrix V accine (1 of 2) [facility] Start: 1994 Cologuard (FIT-DNA) Cologuard (FIT-D NA) [facility] Start: 1994 Colonoscopy Colonoscopy [facility] Start: 1994 Colorectal Cancer Screening Colorectal Cancer Screening [facility] Start: [address] COLONOGRAP[address] [facility] Start: 1994 Fecal Occult Blood Fecal Occult Bloo d [facility] Start: 1994 Lipid 1996 panel - S aristeo or Plasma Lipid Screening [facility] Start: 1994 SIGMOIDOSCOPY SIGMOIDOSCOPY [facility] Start: 1968 Urine microalbumin profile DTa P,Tdap,Td Vaccine (1 - Tdap) [facility] Start: 1967 Hepatitis C Screening Hepatitis C Sc reening [facility] Start: 03-18-1950 Covid-19 Vaccine (#1) Covid-19 Vacci ne (#1) [facility]ini c Payers Date Payer Category Payer Unknown [id number] Social History Date Type Detail Facility Start: 07-02-2019 Ex-smoker (finding) [facility] Evaluation + Plan note Note Date & Type Note Facility Evaluation + Plan note No data available for this section [facility] Hospital Discharge instructions Note Date & Type Note Facility Hospital Discharge instructions No data available for this section [facility] Summary Purpose Family History No Family History Records FoundNo Family History Records FoundNo Family History Records Found Advance Directives No Advanced Directives Records FoundNo Advanced Directives Records FoundNo Advanced Directives Records Found Additional Source Comments INFORMATION SOURCE (unrecogn ized section and content) DATE CREATED AUTHOR AUTHOR'S ORGANIZ ATION 05/01/2022 [facility] DATE CREATED AUTHOR AUTHOR'S CARLOS ALVARADO 09/12/2023 [facility] Source Comments (unrecognize d section and content) In the event this informatio n is protected by the Federal Confidentiality of Alcohol and Drug Abuse Patient Records regulations: The Federal rules restrict any use of the information to criminally investigate or prosecute any alcohol or drug abuse patient.[facility] the event this information is protected by the Federal Confidentiality of Alcohol and Drug Abuse Patient Records regulations: The Federal rules restrict any use of the information to criminally investigate or prosecute any alcohol or drug abuse patient.[facility] Care Teams (unrecognized sec tion and [...] BE BASED ON THE PRIMARY CLINICAL RECORDS. [employer] provides no warranty or guarantee of the accuracy or completeness of information in this document.
--- NOTE | 2024-02-02 06:34 | MRI_ITS ---
STUDY: MRI BRAIN WITH AND WITHOUT CONTRAST (ATTENTION PITUITARY GLAND) REASON FOR EXAM: Female, 73 years old. HYPOTHYROID -- ATTN PITUITARY TECHNIQUE: Standardized multiplanar fat and water weighted pulse sequences were obtained. IV 19ml clariscan was administered for the contrast portion of the examination. COMPARISON: None. FINDINGS: Normal size of the pituitary gland for the patient?s age and gender. A small 3 mm round isointense nonenhancing nodule is present in the left anterior aspect of the anterior hypopharynx is consistent with a benign adenoma. Normal remaining aspects of the pituitary gland with normal enhancement of the remaining parenchyma. Normal infundibular stalk and suprasellar cistern. Normal optic chiasm and hypothalamus. There are no demonstrated ring-enhancing lesions of the brain parenchyma or abnormal enhancement or thickening of the meninges or dura Normal size of the ventricles and extra-axial spaces for the patient''s age. There are a limited number of small white matter hyperintensities, distributed throughout the deep white matter tracts of the cerebral hemispheres, consistent with mild chronic white matter ischemic changes. There is no evidence for recent intracranial ischemia or other cause of cytotoxic edema on diffusion weighted imaging (DWI). There are no demyelinating plagues of the supratentorial brain, brainstem or cerebellum. There are no findings suspicious for multiple sclerosis (MS). Normal bilateral frontal poles, and orbital frontal and gyrus recti of the frontal lobes. Normal bilateral temporal tips of the temporal lobes. No hydrocephalus or midline shift is present. Normal bilateral basal ganglia. Normal thalami. Normal flow voids within the major intracranial circulation suggesting patency by spin echo criteria. Normal venous enhancement. There is no enhancing intra-axial or extra-axial abnormality. There is no extra-axial fluid accumulation. Normal tectal plate and pineal gland. Normal midbrain, candis and medulla. Normal cerebellum. Normal basal cisterns. Normal bilateral temporal bones. Normal bilateral internal auditory canals. No demonstrated orbital abnormality, within the constraints of a routine brain study. Normal visualized paranasal sinuses. Normal calvarium and skull base. Normal visualized upper cervical spine. Normal visualized soft tissue structures. MRI/Brain W/WO Contrast IMPRESSION: 1. A small 3 mm round isointense nonenhancing nodule is present in the left anterior aspect of the anterior hypopharynx is consistent with a benign adenoma. Normal remaining aspects of the pituitary gland with normal enhancement of the remaining parenchyma. 2. Mild chronic ischemic changes of the brain, as described above. 3. Moderate to significant right paranasal sinusitis Pending Final Proof Editing
== END | disposition home or self-care (01) ==
LOC: MRI 06:01
PROVIDERS: PCP Family Medicine; Referring Provider Family Medicine; Visit Provider Family Medicine
DX: E03.8 Other specified hypothyroidism (principal)
CPT/HCPCS: 70553; A9575

== ENCOUNTER 2024-02-03 09:34 | Day surgery (SDC) | payer MEDICARE, SELFPAY ==
[2024-02-02 07:13] VITALS: BMI 36.9
--- NOTE | 2024-02-03 14:03 | PRO.PCM_ITS ---
Procedure Report Date of Procedure: 02/03/24 CONSCIOUS SEDATION REPORT BRIEF HISTORY OF PRESENT ILLNESS: The patient is a 73-year-old female who presented to [facility] for an elective outpatient cardioversion due to underlying atrial fibrillation. The patient reports no PO intake since midnight, but is currently therapeutic on anticoagulation. The patient does not have a history of obstructive sleep apnea. The patient reports no history of smoking or COPD. The patient denies any recent constitutional symptoms such as fevers, chills, nausea or vomiting. The patient denies previous applicable anesthetic complications. Patient's last known ejection fraction was 60%. Patient has not had a cardioversion previ ously. PHYSICAL EXAMINATION: VITAL SIGNS: Reviewed and were acceptable. GENERAL: The patient is a female, in no apparent distress, speaking in full sentences. HEENT: Normocephalic, atraumatic. Mucous membranes are moist and pink. Good mouth opening noted. Trachea is midline. Good neck mobility. MP II CHEST: S1, S2 irregularly irregular. No murmurs, rubs or gallops were noted. LUNGS: Clear to auscultation bilaterally without appreciable wheezes, rales or rhonchi. ABDOMEN: Soft, nontender, nondistended. Positive bowel sounds. EXTREMITIES: There is no clubbing, cyanosis or edema. ASA Class: II DESCRIPTION OF PROCEDURE: After confirmation of informed consent, the patient's anesthesia plan was reviewed in detail. Propofol was chosen. Risks and benefits were reviewed and the patient agreed to proceed. At 12:17 PM, the patient was given 40 mg of propofol. The patient required a total of 60 mg of propofol throughout the procedure to achieve appropriate sedation. The patient achieved an appropriate level of sedation and received 1 attempt synchronized cardioversion, at [address] Carmen at the bedside. This was successful in achieving normal sinus rhythm. The patient was monitored until 12:31 PM, at which time the patient reached their baseline mental status and function. The patient tolerated the procedure well. COMPLICATIONS: None ESTIMATED BLOOD LOSS: None RECOMMENDATIONS: Okay to recover in usual fashion. Procedures Pulmonary 9xxxx: [id number] Con Sedation
--- NOTE | 2024-02-03 15:13 | PCM.OP.PRO ---
Procedure Report Date of Procedure: 02/03/24 DC cardioversion. 73-year-old lady with a history of chronic persistent atrial fibrillation on anticoagulation uninterrupted for at least 3 weeks here for elective DC cardioversion. Patient was seen by Dr. Green of the critical care division. Informed consent was obtained. Anterior-posterior pads were applied. The patient was then administered 60 mg of intravenous propofol and 200 J of synchronized DC cardioversion energy were applied with prompt reversal to sinus rhythm. Patient tolerated the procedure well. Conclusion: Successful DC cardioversion from atrial fibrillation to sinus rhythm. Follow-up as per office protocol.
== END 2024-02-03 13:40 | disposition home or self-care (01) ==
LOC: CLSP 09:37
PROVIDERS: PCP Family Medicine; Referring Provider Internal Medicine Cardiovascular Disease; Visit Provider Internal Medicine Cardiovascular Disease
DX: I48.19 Other persistent atrial fibrillation (principal); Z79.01 Long term (current) use of anticoagulants
CPT/HCPCS: 92960; 93005; J7040

== ENCOUNTER → 2024-02-06 | Outpatient (CLI) | payer MEDICARE, SELFPAY ==
[2024-02-06 14:12] LABS: Follicle Stimulating Hormone 47.8 mIU/mL
== END | disposition home or self-care (01) ==
LOC: LAB 12:39
PROVIDERS: PCP Family Medicine; Referring Provider Family Medicine; Visit Provider Family Medicine
DX: E03.9 Hypothyroidism, unspecified (principal)
CPT/HCPCS: 36415; 83001

== ENCOUNTER → 2024-03-12 | Outpatient (CLI) | payer MEDICARE, SELFPAY ==
[2024-03-12 11:32] LABS: Absolute Lymphocyte Count 2.55 X10^3/uL (0.83-4.51); Basophil# 0.08 X10^3/uL; Basophil% 1.1 % (0-1); Eosinophil# 0.21 X10^3/uL; Eosinophils% 2.8 % (0-5); Hematocrit 46.6 % (37-47); Hemoglobin 15.6 g/dL (12.0-15.0); Lymphocyte # 2.55 X10^3/ul (0.83-4.51); Lymphocyte % 34.3 % (19-41); Mean Corp Hgb Conc 33.5 g/dL (32-36); Mean Corpuscular Hgb 31.8 pg (27.0-32.0); Mean Corpuscular Volume 94.9 fL (81-99); Mean Platelet Vol. 9.9 fl (6.2-12.0); Monocyte% 8.1 % (0-10); NRBC Flagged by Analyzer 0 % (0-5); Neutrophil # 3.96 X10^3/uL (2.7-7.7); Neutrophil % 53.2 % (47-70); Platelet Count 202 K/mm3 (150-450); RBC Distribution Width CV 12.5 % (11.6-14.6); RBC Distribution Width SD 43.3 fl (35.1-43.9); Red Blood Count 4.91 M/mm3 (4.2-5.4); White Blood Count 7.4 K/mm3 (4.4-11.0)
[2024-03-12 12:19] LABS: BNP,B-Type NATRIURETIC PEPTIDE 145.4 pg/mL (0-100)
[2024-03-12 12:28] LABS: Anion Gap 6 (5-15); BUN 19 mg/dL (7-18); BUN/Creat Ratio 19.2 RATIO (10-20); Calcium,Total 9.5 mg/dL (8.5-10.1); Chloride 102 mmol/L (98-107); Creatinine, Serum 0.99 mg/dL (0.55-1.02); EST Glomerular Filtration Rate 58 mL/min (>60); Est Glom Filt Rate - Afr Amer 70 mL/min (>60); Glucose 108 mg/dL (74-106); Sodium Level 137 mmol/L (136-145); Thyroid Stim Hormone (TSH) 0.81 uIU/mL (0.358-3.74)
== END | disposition home or self-care (01) ==
LOC: LAB 11:17
PROVIDERS: PCP Family Medicine; Referring Provider Nurse Practitioner Gerontology; Visit Provider Nurse Practitioner Gerontology
DX: I10 Essential (primary) hypertension (principal); I48.91 Unspecified atrial fibrillation; R06.02 Shortness of breath; R60.0 Localized edema; Z79.01 Long term (current) use of anticoagulants
CPT/HCPCS: 36415; 80048; 83735; 83880; 84443; 85025

== ENCOUNTER → 2024-03-25 | Outpatient (CLI) | payer MEDICARE, SELFPAY ==
--- NOTE | 2024-03-25 10:42 | VDLE_ITS ---
Reason For Study: LLE PAIN Procedure LEFT This is a venous duplex using B-mode, color GSV is normal. flow and spectral Doppler. CFV is compressible, spontaneous, phasic, Exam performed in department. competent, and demonstrates normal The study was technically difficult. augmentation. PT had difficulty tolerating touch, FV is compressible, spontaneous, phasic, compressions & probe pressure. competent and demonstrates normal A preliminary report was called and/or faxed augmentation. to Dr. Partida @ [phone] @ 11:20 am. POP V is compressible, spontaneous, phasic, competent and demonstrates normal augmentation. T/P Trunk is compressible. PTV is compressible. LT PerV is compressible. VL/Venous Duplex US, Unilateral Interpretation Summary Deep veins of the left lower extremity are patent and compressible segmentally. There is no evidence of left lower extremity deep vein thrombosis. The left great saphenous vein slava ears patent and compressible segmentally. Ordering Physician: Goyo Partida Referring Physician: Little Sullivan Performed By: Clotilde Kong, RDCS, RVT
== END | disposition home or self-care (01) ==
LOC: CVS 10:40
PROVIDERS: PCP Family Medicine; Referring Provider Specialist; Visit Provider Specialist
DX: R60.0 Localized edema (principal)
CPT/HCPCS: 93971

== ENCOUNTER → 2024-04-01 | Outpatient (CLI) | payer MEDICARE, SELFPAY ==
[2024-04-01 13:57] LABS: Anion Gap 6 (5-15); BUN 26 mg/dL (7-18); BUN/Creat Ratio 22.4 RATIO (10-20); Calcium,Total 9.6 mg/dL (8.5-10.1); Chloride 98 mmol/L (98-107); Creatinine, Serum 1.16 mg/dL (0.55-1.02); EST Glomerular Filtration Rate 49 mL/min (>60); Est Glom Filt Rate - Afr Amer 59 mL/min (>60); Glucose 147 mg/dL (74-106); Potassium 3.4 mmol/L (3.5-5.1); Sodium Level 136 mmol/L (136-145)
== END | disposition home or self-care (01) ==
LOC: LAB 12:47
PROVIDERS: PCP Family Medicine; Referring Provider Nurse Practitioner Gerontology; Visit Provider Nurse Practitioner Gerontology
DX: R60.0 Localized edema (principal); R06.02 Shortness of breath; Z51.81 Encounter for therapeutic drug level monitoring; Z79.899 Other long term (current) drug therapy
CPT/HCPCS: 36415; 80048

== ENCOUNTER 2024-04-07 09:50 | Emergency (ER) | payer MEDICARE, SELFPAY ==
[2024-04-07 09:51] VITALS: BP 146/96; PULSE 94; RESP 20; TEMP 36.2; O2SAT 98; BMI 38.1
--- NOTE | 2024-04-07 10:13 | EX.ED.DYSGE1 ---
HPI History of Present Illness Chief Complaint: Abd Pain [facility] Medical History COVID Hyperlipidemia Vitamin D deficiency Wears dentures Cancer Post-menopausal Thyroid disease History of IBS Gastric reflux Former smoker History of rheumatic fever History of stress test Epigastric pain Bernardo esophagus Acute hypoxemic respiratory failure Former smoker Melanoma in situ of left lower leg Vision problems Skin cancer GERD (gastroesophageal reflux disease) History of pneumonia Osteoporosis Osteoarthritis IBS (irritable bowel syndrome) Hormone deficiency COPD (chronic obstructive pulmonary disease) Chronic bronchitis Cataracts, bilateral Breast lump in female Bladder leak Hypothyroid Arthritis PCOS (polycystic ovarian syndrome) Hypoglycemia High cholesterol HTN (hypertension) Migraines Home Medications ?Medication ?Instructions ?Recorded ?Last Taken ?Type yduxkyzd-iihkpcn-ojvt-lutein tablet 1 tab PO DAILY supplement 07/09/21 02/03/24 History acetaminophen 325 mg tablet 500 mg (1.5385 x 325 mg) PO Q4H 07/11/21 01/28/23 Rx (Tylenol) PRN PRN Pain Score 1-10/Temp > 100.7 F #0 tabs minocycline 50 mg capsule 50 mg PO DAILY PRN PRN ROSACEA 10/27/23 02/03/24 History azelastine 137 mcg (0.1 %) nasal 2 spray intranasal DIRECTED 10/29/23 Unknown History spray aerosol cholecalciferol (vitamin D3) 50 50 mcg PO DAILY 10/29/23 Unknown History mcg (2,000 unit) capsule esomeprazole magnesium 40 mg 40 mg PO DAILY PRN acid reflux 10/29/23 Unknown History capsule,delayed release fluorometholone 0.1 % eye 1 drp ophthalmic (eye) DIRECTED 10/29/23 Unknown History drops,suspension thyroid (pork) 120 mg tablet 120 mg PO DAILY thyroid 10/29/23 Unknown History ([place] Thyroid) apixaban 5 mg tablet (Eliquis) 5 mg PO BID #60 tabs 11/14/23 02/03/24 Rx lisinopril 10 mg tablet 10 mg PO DAILY #90 tabs 11/14/23 02/03/24 Rx blood pressure test kit-medium #1 ea 01/07/24 Unknown Rx metoprolol succinate 100 mg 100 mg PO DAILY #90 tabs 02/10/24 Unknown Rx tablet,extended release 24 hr furosemide 40 mg tablet 40 mg PO DAILY #30 tabs 03/15/24 Unknown Rx spironolactone 25 mg tablet 25 mg PO DAILY #30 tabs 04/05/24 Unknown Rx metronidazole 0.75 % topical gel topical BID 04/07/24 Unknown History Allergy/AdvReac Type Severity Reaction Status Date / Time No Known Allergies Allergy Verified 04/05/24 14:49 Family History Mother Cancer lung Arthritis Lung cancer Father Hypertension Arthritis Other Breast cancer Family history of breast cancer High cholesterol Ovarian cancer Thyroid disorder Surgical History Hx of bilateral cataract extraction Hx of total knee replacement Hx of melanoma excision History of melanoma excision LOWER DENTAL IMPLANTS S/P nasal septoplasty s/p right ovarian cystectomy S/P hysterectomy s/p kyphoblasty S/P abdominoplasty Status post hernia repair S/P bunionectomy Social History Smoking Status: Former smoker alcohol intake: current substance use type: does not use additional social history: DOES NOT USE ASPIRIN DOES NOT USE IBUPROFEN EXAM Physical Exam Const Vital Signs: 04/07/24 09:51 04/07/24 12:01 Temperature 97.1 F L Temperature Source Temporal Pulse Rate 94 81 Respiratory Rate 20 H 18 Blood Pressure 146/96 H 134/88 H Blood Pressure Mean 112 103 Pulse Ox 98 98 Oxygen Delivery Method Room Air Room Air MDM MDM MDM Narrative Medical decision making narrative: HISTORY OF PRESENT ILLNESS: 73-year-old female presents with abdominal pain. She states she is experiencing right lower quadrant abdominal pain. Notes right lower quadrant pain and high blood pressure started last night. Symptoms are constant, severe. There is no radiation to the groin. No history of kidney stones. Notes she still has her appendix. Denies any vomiting or fever. Denies any vaginal bleeding or discharge. Denies any burning or changes to urination. Last bowel movement was 2 days ago. There is no reported melena or hematochezia. REVIEW OF SYSTEMS: Pertinent positives: Abdominal pain Pertinent negatives: Fever, nausea vomit diarrhea, chest pain, urinary complaints PHYSICAL EXAM: Nursing triage notes reviewed, Vital signs reviewed Constitutional: please see mdm HENT: MMM Eyes: Pupils equal round and reactive to light, Extraocular muscles intact Neck: No stridor, no JVD, full neck ROM Lungs: Clear to auscultation, No wheezing or rales. No increased work of breathing, no conversational dyspnea, no accessory muscle use, no nasal flaring. No respiratory distress noted Heart: Regular rate and rhythm, No murmurs, No rubs and No gallops, 2+ distal pulses (radial, femoral, posterior tibial) in all extremities Abdomen: Soft, there is no tenderness, slight distention, diffuse tenderness worse in right lower quadrant. No Rigidity, rebound or guarding, no obvious peritoneal signs, no palpable pulsatile abdominal masses, no auscultated abdominal bruit : No CVAT Extremities: No edema Neuro: No focal neurological deficits, cranial nerves II through XII intact, 5/5 strength in all extremities. Intact sensation to light touch in all extremities, 2+ reflexes bilateral patella tendons. Normal gait. No ataxia. Skin: No rash or lesions noted MEDICAL DECISION MAKING: Chief Complaint: Abdominal pain External records reviewed: Imaging reviewed: No recent advanced imaging of the abdomen or pelvis Factors affecting care: n hypertension, A-fib on Eliquis, Social determinants of health: none History obtained from others: none Consults: none [facility] Narrative: The patient was hemodynamically stable, afebrile and nontoxic-appearing. Abdominal exam with slight slight distention but no peritoneal signs there is right lower quadrant tenderness concerning for acute appendicitis I considered the following differential diagnosis: AAA, small bowel obstruction, abdominal perforation, appendicitis, pancreatitis, hepatobiliary pathology (acute cholecystitis), mesenteric ischemia, pathology (ie nephrolithiasis, pyelonephritis). I obtained a broad lab and imaging workup to further elucidate the etiology the patient complaints. ALL IMAGES (IF OBTAINED) HAVE BEEN PERSONALLY REVIEWED AND INTERPRETED BY MYSELF. CT scan abdomen pelvis shows hepatic steatosis, fecal material but no evidence of acute surgical etiology CBC without leukocytosis, severe anemia, no thrombocytopenia. Patient failed outpatient BMP with mild hypokalemia, hyponatremia, no evidence of KIET, no evidence of metabolic acidosis or endorgan hypoperfusion LFTs show no evidence of hepatobiliary pathology. Lipase is wnl indicating no pancreatic inflammation. Urinalysis shows no evidence of urinary inflammation suggestive of UTI The synthesis of the patient's history, physical exam, labs images suggest no acute life-limiting etiology specifically no acute surgical etiology. No indication for hospitalization or further ED evaluation at this time patient is appropriate discharge home. The patient and/or family, caregivers express understanding. The patient and/or family, caregivers agrees with the plan. Shared decision making: I will have a discussion with the patient and or visitors regarding risk/benefits of further testing or admission. They will be made aware of of the risk/benefits inherent in this decision they will be given the opportunity to voice understanding. Total critical care time today provided was at least 0 minutes. This excludes separately billable procedures. Critical care time (if documented) is secondary to the patient having high probability of clinically significant/life threatening deterioration in the patient's condition which required my urgent intervention. Impression: 1. Abdominal pain 2. Abdominal distention 3. Hyponatremia 4. Hypokalemia Dispo: Discharge home This note was generated with [employer] dictation software. It may contain incorrect words, spelling, and punctuation that were not noted in review of the chart prior to signing. Lab Data Labs: Laboratory Results - last 24 hr 04/07/24 04/07/24 10:28 11:05 WBC 8.6 RBC 4.91 Hgb 15.5 H Hct 45.4 MCV 92.5 MCH 31.6 MCHC 34.1 RDW Std Deviation 40.4 RDW Coeff of Amy 11.9 Plt Count 203 MPV 10.2 Immature Gran % (Auto) 0.300 Neut % (Auto) 69.0 Lymph % (Auto) 20.3 Walker % (Auto) 7.2 Eos % (Auto) 2.0 Baso % (Auto) 1.2 H Absolute Neuts (auto) 6.0 Absolute Lymphs (auto) 1.75 Nucleated RBC % 0 Sodium 135 L Potassium 3.4 L Chloride 100 Carbon Dioxide 29.0 Anion Gap 6 BUN 27 H Creatinine 1.11 H Estim Creat Clear Calc 47.68 Est GFR (MDRD) Af Amer 62 Est GFR (MDRD) Non-Af 51 L BUN/Creatinine Ratio 24.3 H Glucose 107 H Calcium 9.7 Total Bilirubin 0.60 AST 30 ALT 37 Alkaline Phosphatase 58 Total Protein 7.8 Albumin 3.9 Globulin 3.9 Albumin/Globulin Ratio 1.0 Lipase 49 Urine Color Straw Urine Clarity Clear Urine pH 7.0 Ur Specific [place] 1.005 Urine Protein Negative Urine Glucose (UA) Normal Urine Ketones Negative Urine Occult Blood Negative Urine Nitrite Negative Urine Bilirubin Negative Urine Urobilinogen Normal Ur Leukocyte Esterase Negative Urine RBC 0 SEEN Urine WBC 0 SEEN Ur Squamous Epith Cells 0 SEEN Urine Bacteria 0 SEEN Urine Mucus 0 SEEN Radiography Diagnostic Testing: Clinical Impression(s) from Imaging Studies Abdomen/Pelvis CT 04/07/24 10:15 IMPRESSION: 1. Nonspecific fecal like materials in small bowel loops without evidence of small bowel obstruction. 2. No evidence of acute appendicitis. 3. Diverticulosis without evidence of acute diverticulitis. 4. Left pelvic cyst could represent adnexal cyst. 5. Hepatic steatosis. Electronically Signed: Logan Olmos MD at 12:12 EDT , Discharge Plan Triage Chief Complaint: Abd Pain ED Provider: Catrachito Fraga Dx/Rx/DC Orders Prescriptions: No Action thyroid (pork) [[place] Thyroid] 120 mg tablet 120 mg PO DAILY Rx Instructions: 5 days a week esomeprazole magnesium 40 mg capsule,delayed release(DR/EC) 40 mg PO DAILY PRN (Reason: acid reflux) fluorometholone 0.1 % drops,suspension 1 drp ophthalmic (eye) DIRECTED azelastine 137 mcg (0.1 %) aerosol,spray 2 spray intranasal DIRECTED Rx Instructions: administer into each nostril cholecalciferol (vitamin D3) 50 mcg (2,000 unit) capsule 50 mcg PO DAILY (DME) blood pressure test kit-medium Kit See Rx Instructions .Route Qty: 1 0RF Rx Instructions: As directed metoprolol succinate 100 mg tablet extended release 24 hr 100 mg PO DAILY Qty: 90 3RF spironolactone 25 mg tablet 25 mg PO DAILY Qty: 30 11RF dhnnncjm-nkkmsfy-utgc-lutein Tablet 1 tab PO DAILY acetaminophen [Tylenol] 325 mg Tablet 500 mg PO Q4H PRN PRN (Reason: Pain Score 1-10/Temp > 100.7 F) Qty: 0 0RF minocycline 50 mg capsule 50 mg PO DAILY PRN PRN (Reason: ROSACEA ) metronidazole 0.75 % gel topical BID lisinopril 10 mg tablet 10 mg PO DAILY Qty: 90 3RF Eliquis 5 mg tablet 5 mg PO BID Qty: 60 11RF furosemide 40 mg tablet 40 mg PO DAILY Qty: 30 11RF Primary Care Provider: Little Sullivan Referrals: Little Sullivan MD [Primary Care Provider] - Print Language: Luxembourgish
--- NOTE | 2024-04-07 10:15 | CT_ITS ---
STUDY: CT ABDOMEN AND PELVIS WITH CONTRAST REASON FOR EXAM: Female, 73 years old. RLQ abdominal RADIATION DOSAGE (If Supplied By Facility): CTDIvol = ( 17.69 ) mGy, DLP = ( 1104.70 ) mGycm TECHNIQUE: IV 100mL Isovue-300 was administered. Transaxial images were obtained from the dome of the diaphragm to the symphysis pubis. Multiplanar coronal and sagittal images were reformatted. The protocol utilizes one or more of the following dose reduction techniques: automated exposure control, adjustment of mA and/or kV according to patient size, and/or use of iterative reconstruction technique. COMPARISON: No relevant prior comparison study available FINDINGS: The visualized lung bases are unremarkable. The visualized portions of the heart are within normal limits. Mild coronary calcifications.. There is decreased attenuation of the liver consistent with steatosis. Normal gallbladder and extrahepatic biliary system. Normal spleen. Normal pancreas. Normal bilateral adrenal glands. 1.2 cm simple cyst in the upper pole of the left kidney for which no further follow-up exam is needed. Probable small cyst in the right kidney. No evidence of hydronephrosis. There is a small hiatal hernia. Fecal like materials in small bowel loops without evidence of obstruction at this time. Diverticulosis without evidence of acute diverticulitis. The appendix is visualized and appears normal. There is atherosclerotic calcification of the abdominal aorta, without a demonstrated aneurysm. No retroperitoneal adenopathy. Normal urinary bladder. Absent uterus consistent with previous hysterectomy. 4.5 cm cystic lesion in the left adnexal region could represent adnexal cyst. Tiny umbilical hernia containing fat. There are diffuse degenerative changes of the visualized lumbar spine. CT/Abdomen/Pelvis W IV Cont ONLY IMPRESSION: 1. Nonspecific fecal like materials in small bowel loops without evidence of small bowel obstruction. 2. No evidence of acute appendicitis. 3. Diverticulosis without evidence of acute diverticulitis. 4. Left pelvic cyst could represent adnexal cyst. 5. Hepatic steatosis. Electronically Signed: Logan Olmos MD at 12:12 EDT ,
[2024-04-07] MEDS: 0.9% Normal Saline (1000mL) 1,000 ML 999 ML IV (10:59)
[2024-04-07] MEDS: Ketorolac 15 MG/ML Vial IV (11:00)
[2024-04-07] MEDS: Morphine 4 MG/ML Syringe IV (11:00)
[2024-04-07 11:15] LABS: Absolute Lymphocyte Count 1.75 X10^3/uL (0.83-4.51); Basophil% 1.2 % (0-1); Eosinophil# 0.17 X10^3/uL; Hematocrit 45.4 % (37-47); Hemoglobin 15.5 g/dL (12.0-15.0); Lymphocyte # 1.75 X10^3/ul (0.83-4.51); Lymphocyte % 20.3 % (19-41); Mean Corp Hgb Conc 34.1 g/dL (32-36); Mean Corpuscular Hgb 31.6 pg (27.0-32.0); Mean Corpuscular Volume 92.5 fL (81-99); Mean Platelet Vol. 10.2 fl (6.2-12.0); Monocyte# 0.62 X10^3/uL; Monocyte% 7.2 % (0-10); NRBC Flagged by Analyzer 0 % (0-5); Neutrophil # 5.95 X10^3/uL (2.7-7.7); Platelet Count 203 K/mm3 (150-450); RBC Distribution Width CV 11.9 % (11.6-14.6); RBC Distribution Width SD 40.4 fl (35.1-43.9); Red Blood Count 4.91 M/mm3 (4.2-5.4); White Blood Count 8.6 K/mm3 (4.4-11.0)
[2024-04-07 11:34] LABS: AST(SGOT) 30 U/L (15-37); Alanine Aminotransfer ALT/SGPT 37 U/L (13-56); Albumin, Serum 3.9 g/dL (3.2-5.0); Alkaline Phosphatase 58 U/L (45-117); Anion Gap 6 (5-15); BUN 27 mg/dL (7-18); BUN/Creat Ratio 24.3 RATIO (10-20); Calcium,Total 9.7 mg/dL (8.5-10.1); Chloride 100 mmol/L (98-107); Creatinine, Serum 1.11 mg/dL (0.55-1.02); EST Glomerular Filtration Rate 51 mL/min (>60); Est Glom Filt Rate - Afr Amer 62 mL/min (>60); Estimated Creatinine Clearance 47.68 ml/min; Globulin 3.9 g/dL (2.2-4.2); Glucose 107 mg/dL (74-106); Lipase 49 U/L (13-75); Potassium 3.4 mmol/L (3.5-5.1); Protein, Total 7.8 g/dL (6.4-8.2); Sodium Level 135 mmol/L (136-145)
[2024-04-07 12:01] VITALS: BP 134/88; PULSE 81; RESP 18; O2SAT 98
[2024-04-07 12:16] LABS: Bacteria 0 SEEN /hpf (None Seen); Mucous, Urine 0 SEEN /hpf (<or=2+); Red Blood Cells-Urine 0 SEEN /hpf (0-5); Squamous Epithelial Cells - UA 0 SEEN /hpf (5-10); White Blood Cells 0 SEEN /hpf (0-5)
[2024-04-07 12:18] LABS: Color, Urine Straw (Yellow); Glucose, Dipstick Normal (Normal); Ketone-Dipstick Negative (Negative); Leukocyte Esterase-Dipstick Negative /ul (Negative); Nitrite-Dipstick Negative (Negative); Occult Blood-Urine Negative /ul (Negative); Protein-Dipstick Negative (Negative); Specific Gravity, Urine 1.005 (1.002-1.030); Urine Bilirubin Dipstick Negative (Negative); Urine Clarity Clear (Clear); Urine Urobilinogen Normal (Normal)
[2024-04-07 13:00] VITALS: BP 134/88; PULSE 77; RESP 16; TEMP 36.8; O2SAT 95
== END 2024-04-07 13:14 | disposition home or self-care (01) ==
PROVIDERS: Emergency Provider Emergency Medicine; PCP Family Medicine; Visit Provider Emergency Medicine
DX: R10.9 Unspecified abdominal pain (principal); J44.9 Chronic obstructive pulmonary disease, unspecified; I48.91 Unspecified atrial fibrillation; E87.1 Hypo-osmolality and hyponatremia; Z87.891 Personal history of nicotine dependence; I10 Essential (primary) hypertension; K76.0 Fatty (change of) liver, not elsewhere classified; R14.0 Abdominal distension (gaseous); E87.6 Hypokalemia; E78.00 Pure hypercholesterolemia, unspecified; K21.9 Gastro-esophageal reflux disease without esophagitis; Z79.01 Long term (current) use of anticoagulants
CPT/HCPCS: 74177; 80053; 81001; 83690; 85025; 96361; 96374; 96375; 99282; J7030; Q9967; A4216

== ENCOUNTER → 2024-05-05 | Outpatient (CLI) | payer MEDICARE, SELFPAY ==
[2024-05-05 13:14] LABS: Anion Gap 8 (5-15); BUN 28 mg/dL (7-18); BUN/Creat Ratio 24.6 RATIO (10-20); Calcium,Total 9.6 mg/dL (8.5-10.1); Chloride 99 mmol/L (98-107); Creatinine, Serum 1.14 mg/dL (0.55-1.02); EST Glomerular Filtration Rate 49 mL/min (>60); Est Glom Filt Rate - Afr Amer 60 mL/min (>60); Glucose 133 mg/dL (74-106); Magnesium 2.1 mg/dL (1.6-2.6); Sodium Level 132 mmol/L (136-145)
== END | disposition home or self-care (01) ==
LOC: LAB 11:47
PROVIDERS: PCP Family Medicine; Referring Provider Nurse Practitioner Gerontology; Visit Provider Nurse Practitioner Gerontology
DX: R25.2 Cramp and spasm (principal); Z51.81 Encounter for therapeutic drug level monitoring; Z79.899 Other long term (current) drug therapy
CPT/HCPCS: 36415; 80048; 83735

== ENCOUNTER → 2024-05-17 | Outpatient (CLI) | payer MEDICARE, SELFPAY ==
[2024-05-17 09:39] LABS: Anion Gap 8 (5-15); BUN 21 mg/dL (7-18); BUN/Creat Ratio 17.2 RATIO (10-20); Calcium,Total 9.3 mg/dL (8.5-10.1); Chloride 105 mmol/L (98-107); Creatinine, Serum 1.22 mg/dL (0.55-1.02); EST Glomerular Filtration Rate 46 mL/min (>60); Est Glom Filt Rate - Afr Amer 55 mL/min (>60); Glucose 132 mg/dL (74-106); Potassium 4.1 mmol/L (3.5-5.1); Sodium Level 137 mmol/L (136-145)
== END | disposition home or self-care (01) ==
LOC: LAB 08:56
PROVIDERS: PCP Family Medicine; Referring Provider Nurse Practitioner Gerontology; Visit Provider Nurse Practitioner Gerontology
DX: E87.1 Hypo-osmolality and hyponatremia (principal)
CPT/HCPCS: 36415; 80048

== ENCOUNTER → 2024-06-03 | Outpatient (CLI) | payer MEDICARE, SELFPAY ==
--- NOTE | 2024-06-03 11:03 | US_ITS ---
STUDY: SUPERFICIAL ULTRASOUND - LEFT GROIN REASON FOR EXAM: Female, 73 years old. palpable mass left groin TECHNIQUE: A superficial ultrasound was performed with real-time and static li-scale imaging. COMPARISON: None. FINDINGS: Multiple longitudinal and transverse ultrasound images of the left inguinal area do not demonstrate a discrete solid or cystic mass or lymphadenopathy. Some small normal-sized left inguinal lymph nodes with normal fatty daniel are noted. US/Ext Non Vasc Limited/Soft Tiss IMPRESSION: Normal left groin. Electronically Signed: Jairon Tucker MD at 18:01 EDT ,
== END | disposition home or self-care (01) ==
LOC: US 11:02
PROVIDERS: PCP Family Medicine; Referring Provider Surgery; Visit Provider Surgery
DX: R19.09 Other intra-abdominal and pelvic swelling, mass and lump (principal)
CPT/HCPCS: 76882

== ENCOUNTER → 2024-08-10 | Outpatient (CLI) | payer MEDICARE, SELFPAY ==
[2024-08-10 13:00] LABS: BNP,B-Type NATRIURETIC PEPTIDE 175.7 pg/mL (0-100)
[2024-08-10 13:14] LABS: Anion Gap 7 (5-15); BUN 24 mg/dL (7-18); BUN/Creat Ratio 22.2 RATIO (10-20); Calcium,Total 9.4 mg/dL (8.5-10.1); Chloride 107 mmol/L (98-107); Creatinine, Serum 1.08 mg/dL (0.55-1.02); EST Glomerular Filtration Rate 53 mL/min (>60); Est Glom Filt Rate - Afr Amer 64 mL/min (>60); Glucose 99 mg/dL (74-106); Potassium 4.6 mmol/L (3.5-5.1); Sodium Level 135 mmol/L (136-145)
== END | disposition home or self-care (01) ==
LOC: LAB 11:07
PROVIDERS: PCP Family Medicine; Referring Provider Nurse Practitioner Gerontology; Visit Provider Nurse Practitioner Gerontology
DX: R06.02 Shortness of breath (principal)
CPT/HCPCS: 36415; 80048; 83880

== ENCOUNTER → 2024-08-18 | Outpatient (CLI) | payer MEDICARE, SELFPAY ==
[2024-08-18 10:53] LABS: Anion Gap 4 (5-15); BUN 19 mg/dL (7-18); BUN/Creat Ratio 17.4 RATIO (10-20); Calcium,Total 9.1 mg/dL (8.5-10.1); Chloride 106 mmol/L (98-107); Creatinine, Serum 1.09 mg/dL (0.55-1.02); EST Glomerular Filtration Rate 52 mL/min (>60); Est Glom Filt Rate - Afr Amer 63 mL/min (>60); Glucose 108 mg/dL (74-106); Potassium 4.3 mmol/L (3.5-5.1); Sodium Level 136 mmol/L (136-145)
== END | disposition home or self-care (01) ==
PROVIDERS: PCP Family Medicine; Referring Provider Nurse Practitioner Gerontology; Visit Provider Nurse Practitioner Gerontology
DX: E87.1 Hypo-osmolality and hyponatremia (principal)
CPT/HCPCS: 36415; 80048

== ENCOUNTER → 2024-09-06 | Outpatient (CLI) | payer MEDICARE, SELFPAY ==
[2024-09-06 17:09] LABS: Anion Gap 8 (5-15); BUN 27 mg/dL (7-18); BUN/Creat Ratio 23.1 RATIO (10-20); Calcium,Total 9.2 mg/dL (8.5-10.1); Chloride 104 mmol/L (98-107); Creatinine, Serum 1.17 mg/dL (0.55-1.02); EST Glomerular Filtration Rate 48 mL/min (>60); Est Glom Filt Rate - Afr Amer 58 mL/min (>60); Glucose 99 mg/dL (74-106); Potassium 4.2 mmol/L (3.5-5.1); Sodium Level 138 mmol/L (136-145)
== END | disposition home or self-care (01) ==
PROVIDERS: PCP Family Medicine; Referring Provider Nurse Practitioner Gerontology; Visit Provider Nurse Practitioner Gerontology
DX: R60.0 Localized edema (principal); Z51.81 Encounter for therapeutic drug level monitoring; Z79.899 Other long term (current) drug therapy
CPT/HCPCS: 36415; 80048

== ENCOUNTER → 2025-01-12 | Outpatient (CLI) | payer MEDICARE, SELFPAY ==
--- NOTE | 2025-01-12 09:01 | BI_ITS ---
PROCEDURE: DIAG MAMM W/CAD, BILAT REASON FOR EXAM: Localized tenderness at the 6 o'clock position of the right breast. TECHNIQUE: Bilateral diagnostic digital breast tomosynthesis with 2D and 3D images. Computer aided detection. COMPARISON: Prior exam(s) dating back to January 19, 2024.. FINDINGS: The breasts are almost entirely fatty. No mass lesion is seen. No clustering right calcification is present. The overlying skin is not thickened. BI/DIAG MAMM W/CAD, BILAT IMPRESSION: BI-RADS 0: INCOMPLETE - NEED ADDITIONAL IMAGING EVALUATION. Follow-up code: Sonographic correlation. Reading Location: [place] [id number]
--- NOTE | 2025-01-12 09:01 | US_ITS ---
PROCEDURE: BREAST LIMITED UNILATERAL REASON FOR EXAM: Left breast pain and skin redness in the upper-outer quadrant. COMPARISON: Comparison is made with prior mammogram done earlier in the day. TECHNIQUE: Targeted left breast ultrasound. FINDINGS: LEFT: Ultrasound targeted to the upper-outer quadrant at the left breast. There is a 7 mm x 7 mm x 4 mm mildly hyperechoic density at the 12 o'clock position of the breast at 6 cm from the nipple. This may represent a small lipoma. This is just deep to the subcutaneous tissues. US/Breast Limited Unilateral IMPRESSION: 7 mm x 7 mm x 4 mm hypoechoic nodular density at the 12 o'clock position of the breast at 6 cm from the nipple as described. This most likely represents a lipoma. This is just deep to the subcutaneous ti ssue. BI-RADS 2: BENIGN. RECOMMEND ANNUAL MAMMOGRAPHIC SCREENING. Reading Location: [place] [id number]
== END | disposition home or self-care (01) ==
PROVIDERS: PCP Family Medicine; Referring Provider Nurse Practitioner Family; Visit Provider Nurse Practitioner Family
DX: N64.4 Mastodynia (principal)
CPT/HCPCS: 76642; 77062; 77066; G0279

== ENCOUNTER → 2025-01-17 | Outpatient (CLI) | payer MEDICARE, SELFPAY ==
--- NOTE | 2025-01-17 13:48 | RAD_ITS ---
PROCEDURE: PA and lateral chest radiographs, two views REASON FOR EXAM: Cough. Evaluate for pneumonia TECHNIQUE: PA and lateral chest radiographs were obtained. COMPARISON: 10/27/2023 FINDINGS: The cardiomediastinal silhouette is similar. Thoracic aorta is tortuous. Similar elevation right hemidiaphragm. The lungs are hyperinflated. Bones are osteopenic with degenerative changes in the spine. There are similar scattered coarse interstitial markings in both lungs. No focal airspace consolidation or pleural effusion. RAD/Chest PA and Lateral IMPRESSION: Pulmonary hyperinflation/COPD. Some scattered coarse interstitial markings in both lungs are relatively similar. No focal pneumonia or sizable pleural effusion. If there are persistent symptoms or clinical concern, short-term follow-up CT e valuation may be considered. Reading Location: [facility]
== END | disposition home or self-care (01) ==
LOC: MTRAD 13:35
PROVIDERS: PCP Family Medicine; Referring Provider Nurse Practitioner Family; Visit Provider Nurse Practitioner Family
DX: R05.9 Cough, unspecified (principal)
CPT/HCPCS: 71046

== ENCOUNTER → 2025-01-31 | Outpatient (CLI) | payer MEDICARE, SELFPAY ==
--- NOTE | 2025-01-31 10:30 | RAD_ITS ---
PROCEDURE: CHEST PA AND LATERAL (RADCXR), 01/31/2025 REASON FOR EXAM: RULE OUT PNEUMONIA TECHNIQUE: PA and lateral views of the chest were obtained. COMPARISON: 01/17/2025 FINDINGS: Heart: Similar borderline mild cardiomegaly. Mediastinum: Similar aortic tortuosity; unable to exclude ectasia/aneurysm radiographically. Lungs/pleura: Similar minimal basilar atelectasis/scarring. No effusion or visible pneumothorax. Question a 9 mm nodule in the peripheral right mid to upper lung, without definite correlate on the lateral view Bones: Demineralization. Multilevel spondylosis. Lines and support devices: None. RAD/Chest PA and Lateral IMPRESSION: 1. No visible acute cardiopulmonary findings. 2. Question a small nodule on the right. Recommend outpatient CT chest, unless recently performed elsewhere. 3. Additional description as above. Reading Location: [id number]
== END | disposition home or self-care (01) ==
LOC: MTRAD 10:29
PROVIDERS: PCP Family Medicine; Referring Provider Nurse Practitioner Family; Visit Provider Nurse Practitioner Family
DX: R05.9 Cough, unspecified (principal)
CPT/HCPCS: 71046

== ENCOUNTER → 2025-02-03 | Outpatient (CLI) | payer MEDICARE, SELFPAY ==
--- NOTE | 2025-02-03 07:11 | MRI_ITS ---
PROCEDURE: BRAIN W/WO CONTRAST REASON FOR EXAM: SECONDARY HYPOTHYROIDISM TECHNIQUE: Multiplanar, multisequence MRI of the brain and pituitary Gadolinium COMPARISON: January 2024 FINDINGS: Mild global volume loss and chronic small vessel ischemic change seen in the periventricular white matter. No restricted diffusion. No hydrocephalus. Frontal sinus and ethmoid sinus mucosal thickening detected. High-resolution imaging of the pituitary shows symmetric enhancement. The infundibulum is midline. No mass effect on the chiasm. No pituitary mass. Normal flow voids. No Chiari malformation MRI/Brain W/WO Contrast IMPRESSION: No evidence of pituitary mass. Senescent changes. Mild paranasal sinus mucosal thickening. Reading Location: [id number]
== END | disposition home or self-care (01) ==
PROVIDERS: PCP Family Medicine; Referring Provider Family Medicine; Visit Provider Family Medicine
DX: E03.8 Other specified hypothyroidism (principal)
CPT/HCPCS: 70553; A9575

== ENCOUNTER → 2025-02-25 | Outpatient (CLI) | payer MEDICARE, SELFPAY ==
--- NOTE | 2025-02-25 14:10 | CT_ITS ---
PROCEDURE: LOW DOSE CT LUNG SCREENING 02/25/2025 REASON FOR EXAM: PULM NODULE TECHNIQUE: Low Dose CT Lung screening without contrast. Coronal and Sagittal reconstruction series were provided. One or more dose reduction techniques were used (e.g., Automated exposure control, adjustment of the mA and/or kV according to patient size, use of iterative reconstruction technique). REFERENCE LINK: [facility] Lung-RADS RADIATION DOSE SUMMARY: CTDlvol: 4.02 mGy DLP: 131.39 mGycm COMPARISON: None. FINDINGS: PULMONARY NODULES: (Only nodules >3mm are reported) Pulmonary Nodules: None. Hardware:None. Lymph Nodes:None. Heart and Vasculature:Normal size heart.Almost no calcific plaque burden in the great vessels Coronary Artery Calcifications: Mild calcific plaque burden Lungs and Airways: Scattered foci of ground-glass and linear fibrous changes. Pleura:No pleural effusion. Portable pleura. Upper Abdomen:Limited imaging of the upper abdomen is unremarkable. Bones: CT/Low Dose CT Lung Screening IMPRESSION: No sizable pulmonary nodules are identified. Coronary artery calcification (CAC) is mild Lung-RADS Category: 1 (negative). Other Significant Findings: None. Reading Location: [facility]
== END | disposition home or self-care (01) ==
LOC: CT 13:52
PROVIDERS: PCP Family Medicine; Referring Provider Nurse Practitioner Family; Visit Provider Nurse Practitioner Family
DX: R91.1 Solitary pulmonary nodule (principal); Z87.891 Personal history of nicotine dependence
CPT/HCPCS: 71271

== ENCOUNTER → 2025-04-29 | Outpatient (CLI) | payer MEDICARE, SELFPAY ==
[2025-04-29 10:26] LABS: Absolute Lymphocyte Count 1.77 X10^3/uL (0.83-4.51); Absolute Neutrophil Count 3.4 X10^3/uL (2.0-7.7); Basophil% 1.7 % (0-1); Eosinophils% 3.4 % (0-5); Hematocrit 46.2 % (37-47); Hemoglobin 15.8 g/dL (12.0-15.0); Lymphocyte # 1.77 X10^3/ul (0.83-4.51); Lymphocyte % 30.1 % (19-41); Mean Corp Hgb Conc 34.2 g/dL (32-36); Mean Corpuscular Hgb 31.7 pg (27.0-32.0); Mean Corpuscular Volume 92.6 fL (81-99); Mean Platelet Vol. 10.3 fl (6.2-12.0); Monocyte% 6.8 % (0-10); NRBC Flagged by Analyzer 0 % (0-5); Neutrophil # 3.41 X10^3/uL (2.7-7.7); Neutrophil % 57.8 % (47-70); Platelet Count 181 K/mm3 (150-450); RBC Distribution Width CV 12.2 % (11.6-14.6); RBC Distribution Width SD 41.9 fl (35.1-43.9); Red Blood Count 4.99 M/mm3 (4.2-5.4); White Blood Count 5.9 K/mm3 (4.4-11.0)
[2025-04-29 10:54] LABS: ALB/GLOB Ratio 1.3 RATIO (0.9-2.4); AST(SGOT) 34 U/L (<=31); Alanine Aminotransfer ALT/SGPT 30 U/L (<=34); Albumin, Serum 4.2 g/dL (3.4-4.8); Alkaline Phosphatase 75 U/L (35-104); Anion Gap 13 (5-15); BUN 17 mg/dL (4-19); BUN/Creat Ratio 15.9 RATIO (10-20); Calcium,Total 9.2 mg/dL (7.6-11.0); Carbon Dioxide 22.1 mmol/L (21.0-32.0); Chloride 104 mmol/L (98-108); Cholesterol 204 mg/dL (<=200); Creatinine, Serum 1.07 mg/dL (0.70-1.20); EST Glomerular Filtration Rate 54 (>60); Globulin 3.1 g/dL (2.2-4.2); Glucose 124 mg/dL (70-99); High Density Lipoprotein 38 mg/dL; Low Density Lipoprotein Calc. 141 mg/dL; Potassium 3.9 mmol/L (3.3-5.1); Protein, Total 7.3 g/dL (5.9-8.4); Sodium Level 139 mmol/L (133-145); Total Bilirubin 0.86 mg/dL (0.00-1.30); Triglycerides 125 mg/dL; Very Low Density Lipoprotein 25 mg/dL (5-40)
== END | disposition home or self-care (01) ==
LOC: MTLAB 08:36
PROVIDERS: PCP Family Medicine; Referring Provider Family Medicine; Visit Provider Family Medicine
DX: E03.9 Hypothyroidism, unspecified (principal); I48.19 Other persistent atrial fibrillation; I10 Essential (primary) hypertension
CPT/HCPCS: 36415; 80053; 80061; 84439; 84443; 85025